=== PATIENT | male | born 1955 | race Caucasian/White ===

== ENCOUNTER → 2017-03-16 17:32 | Outpatient (CLI) | payer OTHER, SELFPAY ==
--- NOTE | 2017-03-16 17:38 | RAD_ITS ---
STUDY: X-RAY - LEFT KNEE REASON FOR EXAM: Male, 61 years old. Bilateral knee pain. No history of trauma. TECHNIQUE: 4 view(s) of the knee with weightbearing. COMPARISON: Comparison April 06, 2013. FINDINGS: Alignment is normal. No fracture or dislocation. Mild medial joint space narrowing with small tricompartment osteophytes. Mild lateral subluxation of patella. The soft tissue structures are unremarkable. RAD/Knee 4 or More Views IMPRESSION: Mild tricompartment osteophytosis with mild medial joint space narrowing. Abnormal tracking of the patella. No significant change since March 2013. Electronically Signed: Parth Chamberlain MD at 8:03 EST , Service support ,
--- NOTE | 2017-03-16 17:38 | RAD_ITS ---
STUDY: X-RAY - RIGHT KNEE REASON FOR EXAM: Male, 61 years old. Bilateral knee pain. No history of trauma. TECHNIQUE: 4 view(s) of the knee with weightbearing. COMPARISON: None. FINDINGS: Alignment is normal. No fracture or dislocation. Moderate to severe lateral joint space narrowing with marginal osteophytes. The soft tissue structures are unremarkable. RAD/Knee 4 or More Views IMPRESSION: Moderate to severe degenerative changes of the lateral compartment. Electronically Signed: Parth Chamberlain MD at 8:00 EST , Service support ,
== END ==
PROVIDERS: Family Provider Family Medicine; PCP Family Medicine; Visit Provider Family Medicine
DX: M17.9 Osteoarthritis of knee, unspecified (principal)
CPT/HCPCS: 73564

== ENCOUNTER 2018-05-11 06:33 | Day surgery (SDC) | payer OTHER, SELFPAY ==
[2018-05-11] VITALS (10 sets, daily range): BP systolic 95–142; BP diastolic 65–87; PULSE 59–71; RESP 14–16; TEMP 36.1–36.7; O2SAT 92–100; BMI 32.3
--- NOTE | 2018-05-11 07:30 | PCM.HP.STD ---
Problem List (1) Family history of colon cancer in father Status: Acute History of Present Illness Date of Admission: 05/11/18 The patient is a 63 year old M with a family history of colon cancer in his father who of it at age 55. The patient has had 3 previous colonoscopies. His most recent colonoscopy was 6 years ago. Remotely he thinks he had 2 small pre-polyps he denies bright red blood per rectum or melena. No abdominal pain. No unexpected weight loss. No history of DVT. He otherwise has been enjoying good health. He is not on any anticoagulants. Past Medical History Past Medical History (Chronic Problems): Chronic Problems GERD (gastroesophageal reflux disease) (Chronic) History of cellulitis (Chronic) Allergies No Known Allergies Allergy (Verified 05/10/18 10:20) Home Medications: Ambulatory Orders Medication Instructions Recorded Aspirin [Aspirin, Baby] 81 mg PO DAILY@0800 11/03/13 Omeprazole [Prilosec] 20 mg PO DAILY 11/03/13 Surgical History: - - Hemorrhoidectomy, R arthroscopic knee for torn meniscus. Smoking Status: Former smoker - *Family History Maternal History Items: Diabetes Paternal History Items: Cancer Review of Systems Constitutional: Denies: Anorexia HEENT: Denies: Difficulty Swallowing Cardiovascular: Denies: Chest Pain Respiratory: Denies: Cough Gastrointestinal: Denies: Abdominal Pain, Hematemesis, Melena Endocrine: Denies: Change in Body Habitus VTE Information - Inpt Only VTE Present on Admission: No Patient Problems: Active and Suspected Problems Family history of colon cancer in father (Acute) - Physical Exam General: Alert, Oriented x3, Cooperative, No apparent distress HEENT: Atraumatic Oral: Moist Mucosa Neck: Supple Lungs: Clear to auscultation, Normal air movement Cardiovascular: Regular rate, Regular Rhythm Abdomen: Bowel Sounds Present, Soft, Non Tender Extremities: No Calf Tenderness Skin: No rashes Psych/Mental Status: Normal Affect Vital Signs Temp Pulse Resp BP Pulse Ox 98.1 F 71 16 142/74 H 99 05/11/18 06:57 05/11/18 06:57 05/11/18 06:57 05/11/18 06:57 05/11/18 06:57 Oxygen Delivery Method Room Air Weight: 252 lb 6.868 oz Body Mass Index (BMI) 32.3 Assessment/Plan All Active Problems Family history of colon cancer in father (Acute) Cellulitis of arm, left (Acute) Bursitis of elbow (Acute) I am recommending a colonoscopy with possible biopsy or polypectomy as indicated. He is aware of the technique, benefits, risks, alternatives. He presents via our open access program. We will proceed as noted. Jerry Slaughter M.D., F.A.C.S.
--- NOTE | 2018-05-11 07:52 | OP.ENDO_ITS ---
05/11/2018 Akira Green Re : Colonoscopy procedure for Tom Leal Dear Norma This procedure was performed on Friday, May 11, 2018. My impressions and recommendations are as follows: Impressions : - Diverticulosis in the sigmoid colon and in the descending colon. There was no evidence of diverticular bleeding. - The examination was otherwise normal. - No specimens collected. Recommendations : - Discharge patient to home. - Resume previous diet. - Continue present medications. - Repeat colonoscopy in 5 years for surveillance. My findings are described in the full procedure note, which is enclosed. If I can be of further assistance, please feel free to contact me at Doctor phone number(s): Work: . Sincerely, Jerry Slaughter MD 05/11/2018 7:52:26 AM This report has been signed electronically.
== END 2018-05-11 09:22 | disposition home or self-care (01) ==
LOC: EN 06:34 → AC 06:35
PROVIDERS: Family Provider Family Medicine; PCP Family Medicine; Referring Provider Surgery; Visit Provider Surgery
PROC: 0DJD8ZZ Inspection of Lower Intestinal Tract, Via Natural or Artificial Opening Endoscopic (ICD-10-PCS; CPT 45378; principal; 2018-05-11 07:25)
DX: K57.30 Diverticulosis of large intestine without perforation or abscess without bleeding (principal); K21.9 Gastro-esophageal reflux disease without esophagitis; Z80.0 Family history of malignant neoplasm of digestive organs
CPT/HCPCS: 45378; 99152; 99153; J7120

== ENCOUNTER → 2018-09-21 12:20 | Outpatient (CLI) | payer OTHER, SELFPAY ==
[2018-09-21 08:05] VITALS: BMI 32.3
[2018-09-21 12:21] LABS: Pathologist Comment May follow
[2018-09-21 13:17] LABS: RBC /Synovial Fluid 0.029 10^6/uL (0); Synovial Fld Mononuclear WBC % 79.8 %; Synovial Fld Polynuclear WBC # 0.059 10^3/uL; Synovial Fld Polynuclear WBC % 20.2 %
[2018-09-21 13:25] LABS: AUTO B FLUID DILUENT BKGD CT WBC <0.1 RBC <0.01 (W<.1,R<.01); Appearance /Synovial Fluid Cloudy (CLEAR); Color / Synovial Fluid Red (Pale Yellow); Source / Synovial Fluid LEFT KNEE; Source- Body Fluid SYNOVIAL
[2018-09-21 14:49] LABS: Body Fluid QC Type(s) BF2,BF3
[2018-09-21 15:09] LABS: Lymph 76 %; Monocyte /Synovial Fluid 7 %; Neutrophil 17 % (0-25)
[2018-09-22 14:20] LABS: Pathologist Review Reviewed
== END ==
PROVIDERS: PCP Family Medicine; Visit Provider Orthopaedic Surgery
DX: M25.462 Effusion, left knee (principal)
CPT/HCPCS: 82945; 84157; 87070; 87075; 87205; 89050; 89051; 89060

== ENCOUNTER → 2018-09-27 15:19 | Outpatient (CLI) | payer OTHER, SELFPAY ==
[2018-09-21 08:05] VITALS: BMI 32.3
== END ==
PROVIDERS: PCP Family Medicine; Visit Provider Family Medicine
DX: R39.11 Hesitancy of micturition (principal); R50.9 Fever, unspecified
CPT/HCPCS: 87086; 87088

== ENCOUNTER → 2018-09-30 11:09 | Outpatient (CLI) | payer OTHER, SELFPAY ==
[2018-09-21 08:05] VITALS: BMI 32.3
--- NOTE | 2018-09-30 11:11 | MRI_ITS ---
STUDY: MRI LEFT KNEE REASON FOR EXAM: Left knee pain since June, no specific injury. TECHNIQUE: Standardized fat and water weighted pulse sequences were obtained in all 3 orthogonal planes. COMPARISON: Radiographs 03/16/2017. FINDINGS: Normal medial meniscus. Normal hyaline cartilage of the medial femorotibial compartment. Normal medial femoral condyle and tibial plateau. Normal medial collateral ligamentous complex (MCL). Normal distal semimembranosus, gracilis and semitendinosus tendons. There is diffuse tear/degeneration of the lateral meniscus (proton density sagittal images 29-39; proton density coronal images 10-15). There is peripheral subluxation of the lateral meniscus. There is arthrosis of the lateral femorotibial compartment with chondral thinning (T2 sagittal image 22). There is a subchondral insufficiency fracture of the lateral femoral condyle with mild associated bone edema (T2 coronal images 11, 12). Normal proximal tibiofibular articulation. Normal lateral collateral (fibular) ligament. Normal popliteus tendon. Normal biceps femoris tendon. Normal anterior cruciate ligament (ACL). Normal posterior cruciate ligament (PCL). Normal congruent patellofemoral articulation. There is arthrosis of the patellofemoral compartment partial-thickness chondral loss (T2 sagittal images 16, 17). Normal medial and lateral patellar retinaculum. Normal visualized quadriceps tendon. Normal patellar tendon. Normal Hoffa's fat pad. There is a small joint effusion. There is a thin medial patellar plica. There is edema/fluid in the anterior subcutis adipose space. The otherwise visualized osseous structures are unremarkable. MRI/Lower Ext Joint Only (Routine) IMPRESSION: Tear/degeneration of the lateral meniscus. Subchondral insufficiency fracture of the lateral femoral condyle. Arthrosis of the lateral femorotibial and patellofemoral compartments. Small joint effusion. Electronically Signed: Lawrence Chowdary MD at 13:17 EDT Tel , Service support ,
== END ==
PROVIDERS: Family Provider Family Medicine; PCP Family Medicine; Referring Provider Orthopaedic Surgery; Visit Provider Orthopaedic Surgery
DX: M25.462 Effusion, left knee (principal)
CPT/HCPCS: 73721

== ENCOUNTER → 2019-07-26 10:02 | Outpatient (CLI) | payer OTHER, SELFPAY ==
[2018-12-06 12:51] VITALS: BMI 32.3
--- NOTE | 2019-07-26 10:09 | VDLE_ITS ---
Reason For Study: suspected phlebitis Procedure LEFT Exam performed in department. GSV is normal. The exam was abbreviated due to the COVID 19 CFV is compressible, spontaneous, phasic, protocol. competent, and demonstrates normal The exam was diagnostic. augmentation. A preliminary report was called and/or faxed FV is compressible, spontaneous, phasic, to Dr. Love. competent and demonstrates normal augmentation. POP V is compressible, spontaneous, phasic, competent and demonstrates normal augmentation. T/P Trunk is compressible. PTV is compressible. LT PerV is compressible. Interpretation Summary Deep veins of the left lower extremity are patent and compressible segmentally. There is no evidence of left lower extremity deep vein thrombosis. Valvular competence appears intact within the proximal deep venous system on the left . The left great saphenous vein appears patent and compressible segmentally. An abbreviated Covid-19 protocol was performed. Ordering Physician: Phil Love Performed By: Woody Hartley RVT
== END ==
PROVIDERS: PCP Family Medicine; Referring Provider Family Medicine; Visit Provider Family Medicine
DX: M79.605 Pain in left leg (principal); M79.89 Other specified soft tissue disorders; I80.3 Phlebitis and thrombophlebitis of lower extremities, unspecified
CPT/HCPCS: 93971

== ENCOUNTER → 2019-12-26 16:42 | Outpatient (CLI) | payer OTHER, SELFPAY ==
[2018-12-06 12:51] VITALS: BMI 32.3
[2019-12-26 17:41] LABS: Hemoglobin 14.6 g/dL (13.0-16.5); Mean Corpuscular Hgb 31.3 pg (27.0-32.0); Mean Corpuscular Volume 92.3 fL (80-94); Mean Platelet Vol. 10.8 fl (6.2-12.0); Platelet Count 239 K/mm3 (150-450); RBC Distribution Width CV 12.4 % (11.6-14.6); RBC Distribution Width SD 41.9 fl (35.1-43.9); Red Blood Count 4.66 M/mm3 (4.6-6.2); White Blood Count 6.2 K/mm3 (4.4-11.0)
[2019-12-26 18:22] LABS: Anion Gap 9 (5-15); BUN 21 mg/dL (7-18); BUN/Creat Ratio 21.9 RATIO (10-20); Calcium,Total 8.6 mg/dL (8.5-10.1); Chloride 106 mmol/L (98-107); Creatinine, Serum 0.96 mg/dL (0.70-1.30); EST Glomerular Filtration Rate 84 mL/min (>60); Est Glom Filt Rate - Afr Amer 101 mL/min (>60); Glucose 125 mg/dL (74-106); Potassium 3.8 mmol/L (3.5-5.1); Sodium Level 140 mmol/L (136-145)
== END ==
PROVIDERS: PCP Family Medicine; Referring Provider Urology; Visit Provider Urology
DX: Z01.812 Encounter for preprocedural laboratory examination (principal); Z11.59 Encounter for screening for other viral diseases
CPT/HCPCS: 36415; 80048; 85027

== ENCOUNTER → 2019-12-30 10:35 | Outpatient (CLI) | payer OTHER, SELFPAY ==
[2018-12-06 12:51] VITALS: BMI 32.3
--- NOTE | 2019-12-30 10:38 | EKG12_ITS ---
Test Reason : PREOP Blood Pressure : / mmHG Vent. Rate : 077 BPM Atrial Rate : 077 BPM P-R Int : 166 ms QRS Dur : 106 ms QT Int : 376 ms P-R-T Axes : 020 001 079 degrees QTc Int : 425 ms Normal sinus rhythm Normal ECG Confirmed by DWAYNE ALMAZAN, LOVE ([id number]), production editor JESSIE VELASQUEZ ([id number]) on 01/02/2020 1:27:49 PM Referred By: Domingo Farris Confirmed By:LOVE RICE MD
== END ==
PROVIDERS: PCP Family Medicine; Referring Provider Urology; Visit Provider Urology
DX: Z01.812 Encounter for preprocedural laboratory examination (principal); Z11.59 Encounter for screening for other viral diseases
CPT/HCPCS: 87635; 93005; C9803; U0003

== ENCOUNTER → 2020-02-14 13:42 | Outpatient (CLI) | payer OTHER, SELFPAY ==
[2018-12-06 12:51] VITALS: BMI 32.3
[2020-02-14 15:17] LABS: Absolute Lymphocyte Count 1.17 X10^3/uL (0.83-4.51); Absolute Neutrophil Count 2.5 X10^3/uL (2.0-7.7); Basophil# 0.04 X10^3/uL; Basophil% 0.9 % (0-1); Eosinophil# 0.19 X10^3/uL; Eosinophils% 4.5 % (0-5); Hematocrit 42.3 % (40-54); Hemoglobin 14.4 g/dL (13.0-16.5); Lymphocyte # 1.17 X10^3/ul (4.0); Lymphocyte % 27.7 % (19-41); Mean Corpuscular Volume 91.2 fL (80-94); Mean Platelet Vol. 10.8 fl (6.2-12.0); Monocyte# 0.32 X10^3/uL; Monocyte% 7.6 % (0-10); NRBC Flagged by Analyzer 0 % (0-5); Neutrophil % 59.1 % (47-70); Platelet Count 229 K/mm3 (150-450); RBC Distribution Width CV 12.3 % (11.6-14.6); RBC Distribution Width SD 40.6 fl (35.1-43.9); Red Blood Count 4.64 M/mm3 (4.6-6.2); White Blood Count 4.2 K/mm3 (4.4-11.0)
[2020-02-14 15:53] LABS: Anion Gap 6 (5-15); BUN 17 mg/dL (7-18); Calcium,Total 8.9 mg/dL (8.5-10.1); Chloride 106 mmol/L (98-107); EST Glomerular Filtration Rate 90 mL/min (>60); Est Glom Filt Rate - Afr Amer 109 mL/min (>60); Glucose 95 mg/dL (74-106); Potassium 3.8 mmol/L (3.5-5.1); Sodium Level 138 mmol/L (136-145); Thyroid Stim Hormone (TSH) 1.88 uIU/mL (0.358-3.74)
== END ==
PROVIDERS: PCP Family Medicine; Visit Provider Family Medicine
DX: I10 Essential (primary) hypertension (principal)
CPT/HCPCS: 36415; 80048; 84443; 85025

== ENCOUNTER 2020-06-12 17:30 | Outpatient (RCR) | payer OTHER, SELFPAY ==
[2018-12-06 12:51] VITALS: BMI 32.3
--- NOTE | 2020-06-08 15:04 | HP.PTEVAL_ITS ---
Patient's Visit Information COLEEN HARRISON is a 65 year old M referred to Physical Therapy by Dr. Akira Green MD with a diagnosis of BPPV. Date of Evaluation: 06/08/20 Physical Therapist: Lux Saucedo DPT, OCS, CSCS - Visit Plan Frequency: 1x/Week Duration: 4-6 Weeks Plan: weekly as needed for 2-4 weeks for positional monitorring and treatments. Next session check L hallpike and driving, movemnets as patient is going out of town after that. - Subjective Dizzyness for about three weeks. Lying downa nd turning hed to the right. Spinning for a couple seconds. Feels pretty normal in between episode. Got meclizine which he takes but it makes him woozy. No falls, Balance feels OK. Semi retired, works in [employer]. activities at home are mostly OK but avoids yard work as bending down can be an issue. Worried about driving as he had it happen on hills in the car one time. - Objective Walks normal adn I, trasnfers with UE I, steps I with one rail showing weakness B at knees. cervical aROM is well wFL adn without pain today. - R halpike jonnie. + L hallpike jonnie for up torsional nystagmus of 10 seconds. Treated with L luan then - HD test. - Balance Scores Functional Gait Assessment Score: 25 % Disability: 16.6700 - Goals Goal 1:: Abolish dizzyness with bending or lying in bed. Goal Time Frame: 2-4 Weeks Goal 2:: Pt feel 100% back to normal Goal Time Frame: 2-4 Weeks Goal 3:: 0 DHI score Goal Time Frame: 2-4 Weeks - Rehabilitation Potential Physical Therapy Diagnosis: BPPV Rehabilitation Potential: Fair - Anticipated Interventions Patient/Client Instruction: Educate patient on: Condition, Plan of Care For the Purpose of:: To increase tolerance to activity/condition/position Comment: positional and vestibular For the Purpose of:: To increase tolerance to activity/condition/position Thank you for the opportunity to evaluate your patient. For Medicare and Medicare HMO plans, please review the plan of care and approve it. It will need to be FAXED BACK to us at [phone] for Medicare purposes. For Medicare only, by signing this I certify the plan of care. Please let me know if there are questions or concerns regarding this plan of care. Physician Signature: Date:
--- NOTE | 2020-08-28 11:49 | HP.PT.NRP ---
COLEEN HARRISON was seen in my office for initial evaluation on 06/08/20. The following Plan of Care was established for this patient: Initial Frequency: 1x/Week Initial Duration: 4-6 Weeks Patient/Client Instruction: Educate patient on: Condition, Plan of Care For the Purpose of:: To increase tolerance to activity/condition/position For the Purpose of:: To increase tolerance to activity/condition/position This patient was last seen in our office 06/12/20. Pertinent comments regarding their Physical therapy will appear below: Pt een two visits for positional treatments adn was 80% better. They no showed for the next f/u and neglected to reschedule. at this point, it has been over two months adn I will discontinue due to nonattendance. At this point I will be discontinuing this patient from physical therapy. I would be happy to see this patient again in the future if found appropriate by the physician. Thank you! Lux Saucedo, DPT, OCS, CSCS
== END 2020-06-12 19:00 | disposition home or self-care (01) ==
LOC: PT 17:30
PROVIDERS: PCP Family Medicine; Referring Provider Family Medicine; Visit Provider Family Medicine
DX: H81.10 Benign paroxysmal vertigo, unspecified ear (principal)
CPT/HCPCS: 97161; 97530

== ENCOUNTER → 2020-07-19 15:07 | Outpatient (CLI) | payer OTHER, SELFPAY ==
[2018-12-06 12:51] VITALS: BMI 32.3
== END ==
PROVIDERS: PCP Family Medicine; Visit Provider Urology
DX: Z12.5 Encounter for screening for malignant neoplasm of prostate (principal)
CPT/HCPCS: 36415; 84153; G0103

== ENCOUNTER 2021-03-14 16:48 | Outpatient (CLI) | payer BC, SELFPAY | END 2021-03-14 23:59 | disposition short-term general hospital (02) | LOC: LABSPEC 16:49 | PROVIDERS: PCP Family Medicine; Visit Provider Family Medicine | DX: U07.1 COVID-19 (principal) | CPT/HCPCS: 87635; U0003; U0005 ==

== ENCOUNTER 2021-05-09 15:30 | Outpatient (CLI) | payer BC, SELFPAY | END 2021-05-09 23:59 | disposition home or self-care (01) | LOC: LAB 15:32 | PROVIDERS: PCP Family Medicine; Referring Provider Urology; Visit Provider Urology | DX: Z12.5 Encounter for screening for malignant neoplasm of prostate (principal) ==

== ENCOUNTER → 2021-12-09 | Outpatient (CLI) | payer MEDICARE, OTHER, SELFPAY ==
[2021-12-09 14:40] LABS: AST(SGOT) 15 U/L (15-37); Alanine Aminotransfer ALT/SGPT 28 U/L (16-61); Albumin, Serum 3.5 g/dL (3.2-5.0); Alkaline Phosphatase 56 U/L (45-117); Anion Gap 7 (5-15); BUN 19 mg/dL (7-18); BUN/Creat Ratio 20.2 RATIO (10-20); Calcium,Total 8.8 mg/dL (8.5-10.1); Chloride 102 mmol/L (98-107); Cholesterol 202 mg/dL (200); Creatinine, Serum 0.94 mg/dL (0.70-1.30); EST Glomerular Filtration Rate 85 mL/min (>60); Est Glom Filt Rate - Afr Amer 103 mL/min (>60); Globulin 3.6 g/dL (2.2-4.2); Glucose 113 mg/dL (74-106); High Density Lipoprotein 57 mg/dL; PSA,Total - Annual Screen 4.12 ng/mL (0.00-4.00); Potassium 3.6 mmol/L (3.5-5.1); Protein, Total 7.1 g/dL (6.4-8.2); Sodium Level 139 mmol/L (136-145); Triglycerides 84 mg/dL; Very Low Density Lipoprotein 17 mg/dL (5-40)
== END | disposition home or self-care (01) ==
PROVIDERS: PCP Family Medicine; Referring Provider Family Medicine; Visit Provider Family Medicine
DX: Z00.00 Encounter for general adult medical examination without abnormal findings (principal); I10 Essential (primary) hypertension; Z12.5 Encounter for screening for malignant neoplasm of prostate
CPT/HCPCS: 36415; 80053; 80061; 84153; G0103

== ENCOUNTER 2022-02-28 20:49 | Emergency (ER) | payer MEDICARE, OTHER, SELFPAY ==
[2022-02-28 20:50] VITALS: BP 141/126; PULSE 63; RESP 15; TEMP 36.6; O2SAT 93; BMI 32.1
--- NOTE | 2022-02-28 21:10 | EDS_ITS ---
HPI History of Present Illness Chief Complaint: Wound Narrative Narrative: 66-year-old male had robotic little right TKA performed by Dr. Charles Rapp on Thursday, 4 days ago. He went to rehab today. His who is his supervisor [employer] during his rehabilitation of this right knee noticed that on the incision that was closed and amie on the anterior tibial surface, was saturated with a thin blood. This is not the original bandage. states that she changed it this afternoon after physical therapy, and has become saturated. They called the on- call physician. They present to the emergency department because of the reported continued bleeding. Patient denies any fevers or chills, no purulent drainage. No real pain in the knee. He does not take blood thinners except for aspirin. PFSH PFSH Home Medications omeprazole 20 mg capsule,delayed release 20 mg PO DAILY 11/03/13 [History Last Taken 05/11/18 04:30 20 MG] alfuzosin 10 mg tablet,extended release 24 hr 10 mg PO DAILY 09/05/20 [History Last Taken Unknown] losartan 100 mg tablet 100 mg PO DAILY 09/05/20 [History Last Taken Unknown] Allergy/AdvReac Type Severity Reaction Status Date / Time No Known Allergies Allergy Verified 02/28/22 20:55 Family History Father Colon cancer Surgical History [place] teeth extracted Social History household members: spouse and children housing: house current occupational status: retired Smoking Status: Former smoker alcohol intake: current alcohol intake frequency: a few times a week substance use type: does not use what type of physical activity do you participate in: bicycling seatbelt use: always do you feel safe at home: Yes ROS ROS ED ROS Narrative Constitutional: No fever, no chills. HEENT: No sore throat. No neck pain. No loss of vision. No rhinorrhea. Cardiovascular: No chest pain. No palpitations. No pedal edema. Respiratory: No cough, no shortness of breath. Abdominal: No abdominal pain. No nausea. No vomiting. Genitourinary: No dysuria. No hematuria. Musculoskeletal: No myalgias. No arthralgias. Status post right knee total arthroplasty. Neurologic: No headaches. No dizziness. No lightheadedness. Skin: No rash. No change in color except postsurgical changes to right knee. Drainage from incision on right anterior tibia incision. Psychiatric: No depression. No anxiety. EXAM Physical Exam Narrative Exam Narrative: Afebrile. Vital signs noted. HEENT: Normocephalic. Atraumatic. PERRL, EOMI. Neck soft and supple. No point tenderness or step off. Cardiovascular: Regular rate and rhythm. No murmurs, rubs, or gallops appreciated. Respiratory: No tachypnea. Lungs clear to auscultation bilaterally. Gastrointestinal: Abdomen soft, nontender, with normoactive bowel sounds. No rebound or guarding. Neurological: Awake. Alert. Nonfocal, nonlateralizing. Skin: No rash. Normal color. No pallor. Incision on anterior tibial surface sutured closed with amie. Positive serosanguineous drainage. No brisk bleeding. Musculoskeletal: No pedal edema. Full range of motion extremities. Range of motion of right knee mildly limited secondary to postoperative pain. Right lo wer extremity edema consistent with postoperative edema. Const Vital Signs: 02/28/22 20:50 Temperature 97.8 F Temperature Source Temporal Pulse Rate 63 Respiratory Rate 15 Blood Pressure 141/126 H Blood Pressure Mean 131 Pulse Ox 93 Oxygen Delivery Method Room Air MDM MDM MDM Narrative Medical decision making narrative: I do not feel antibiotics are indicated. I do think that this is serosanguineous postoperative drainage and not a postoperative hemorrhage. I discussed the patient with Dr. Smalls with orthopedic surgery. The patient was reportedly seen by Dr. Rapp's PA today, and they had called Dr. Smalls this evening at around 5 PM. He agrees with slight pressure bandage he was encouraged to continue his use of compression stockings. He may need to change the dressing more often. He will follow-up with Dr. Rapp on Thursday. I feel he can be discharged safely home with follow-up. Return instructions to the emergency department were reviewed. Disposition is discharged home in stable condition. Discharge Plan Triage Chief Complaint: Wound ED Provider: Temo Miller Dx/Rx/DC Orders Clinical Impression: Encounter for postoperative wound check, History of total knee arthroplasty Instructions: Knee Replacement Post Op, ED Wound Check (No Infection) Prescriptions: No Action losartan 100 mg tablet 100 mg PO DAILY Label Comments: take 1 tablet by mouth once daily alfuzosin 10 mg tablet extended release 24 hr 10 mg PO DAILY Label Comments: take 1 tablet by mouth once daily AT NIGHT omeprazole 20 MG capsule 20 mg PO DAILY Primary Care Provider: Akira Green Referrals: Akira Green MD [Primary Care Provider] - Charles Rapp MD [Med Staff - Active Staff] - 03/03/22 Disposition Disposition: Home, Self Care
== END 2022-02-28 22:09 | disposition home or self-care (01) ==
LOC: ED 21:28
PROVIDERS: Emergency Provider Emergency Medicine; PCP Family Medicine; Visit Provider Emergency Medicine
DX: Z51.89 Encounter for other specified aftercare (principal); Z96.651 Presence of right artificial knee joint; Z87.891 Personal history of nicotine dependence
CPT/HCPCS: 99283

== ENCOUNTER → 2022-06-19 | Outpatient (CLI) | payer MEDICARE, OTHER, SELFPAY ==
[2022-06-19 16:05] LABS: PSA,Total- Diagnostic 2.91 ng/mL (0.0-4.0)
== END | disposition home or self-care (01) ==
LOC: LAB 14:45
PROVIDERS: PCP Family Medicine; Visit Provider Urology
DX: R97.20 Elevated prostate specific antigen [PSA] (principal)
CPT/HCPCS: 36415; 84153

== ENCOUNTER → 2022-08-20 | Outpatient (CLI) | payer MEDICARE, OTHER, SELFPAY ==
[2022-08-20 12:59] LABS: Absolute Lymphocyte Count 1.53 X10^3/uL (0.83-4.51); Absolute Neutrophil Count 3.4 X10^3/uL (2.0-7.7); Basophil# 0.04 X10^3/uL; Basophil% 0.7 % (0-1); Eosinophil# 0.23 X10^3/uL; Eosinophils% 3.9 % (0-5); Hematocrit 40.3 % (40-54); Hemoglobin 14.3 g/dL (13.0-16.5); Lymphocyte # 1.53 X10^3/ul (0.83-4.51); Lymphocyte % 26.1 % (19-41); Mean Corp Hgb Conc 35.5 g/dL (32-36); Mean Corpuscular Hgb 31.8 pg (27.0-32.0); Mean Corpuscular Volume 89.8 fL (80-94); Mean Platelet Vol. 11.2 fl (6.2-12.0); Monocyte# 0.62 X10^3/uL; Monocyte% 10.6 % (0-10); NRBC Flagged by Analyzer 0 % (0-5); Neutrophil # 3.42 X10^3/uL (2.7-7.7); Neutrophil % 58.4 % (47-70); Platelet Count 238 K/mm3 (150-450); RBC Distribution Width CV 12.7 % (11.6-14.6); RBC Distribution Width SD 41.6 fl (35.1-43.9); Red Blood Count 4.49 M/mm3 (4.6-6.2); White Blood Count 5.9 K/mm3 (4.4-11.0)
[2022-08-20 13:44] LABS: AST(SGOT) 18 U/L (15-37); Alanine Aminotransfer ALT/SGPT 29 U/L (16-61); Albumin, Serum 3.7 g/dL (3.2-5.0); Alkaline Phosphatase 71 U/L (45-117); Anion Gap 7 (5-15); BUN 22 mg/dL (7-18); Calcium,Total 9.5 mg/dL (8.5-10.1); Chloride 104 mmol/L (98-107); Creatinine, Serum 1.05 mg/dL (0.70-1.30); EST Glomerular Filtration Rate 75 mL/min (>60); Est Glom Filt Rate - Afr Amer 90 mL/min (>60); Globulin 3.7 g/dL (2.2-4.2); Glucose 110 mg/dL (74-106); Potassium 3.3 mmol/L (3.5-5.1); Protein, Total 7.4 g/dL (6.4-8.2); Sodium Level 139 mmol/L (136-145)
== END | disposition home or self-care (01) ==
LOC: BFHLAB 10:02
PROVIDERS: PCP Family Medicine; Referring Provider Family Medicine; Visit Provider Family Medicine
DX: R10.11 Right upper quadrant pain (principal)
CPT/HCPCS: 36415; 80053; 85025

== ENCOUNTER → 2022-08-27 | Outpatient (CLI) | payer MEDICARE, OTHER, SELFPAY ==
--- NOTE | 2022-08-27 10:40 | US_ITS ---
STUDY: ABDOMINAL ULTRASOUND - RIGHT UPPER QUADRANT REASON FOR VISIT: Male, 67 years old RUQ PAIN TECHNIQUE: Ultrasound evaluation of the right upper quadrant was performed with real-time and static benz-scale imaging. TECHNICAL QUALITY: Adequate. COMPARISON: None. FINDINGS: Liver: The liver is enlarged and measures 20.4 cm. There is increased echogenicity consistent with fatty infiltration. The bile ducts are within normal limits. There is hepatic color flow. The direction of portal flow is hepatopetal. There is no demonstrated mass lesion. Gallbladder: Normal distended gallbladder. The gallbladder wall measures 2 mm. There is a negative sonographic Forrester''s sign. There is no pericholecystic fluid. There are no gallstones. Common Bile Duct (C.B.D.): The common bile duct measures 3 mm. Pancreas: Normal size of the head, body and tail of the pancreas. There is normal echogenicity of the pancreas. There is no demonstrated pancreatic mass or cyst. Right Kidney: Normal size of the right kidney. The right kidney measures 11.6 cm x 6.4 cm x 5.2 cm. Normal renal cortex. The right cortex measures 1.8 cm. There is no demonstrated renal mass or cyst. There is no right hydronephrosis. Findings suggestive of a small pericardial effusion. Irregular contraction of the left ventricle. US/Abdomen Limited IMPRESSION: Hepatomegaly and diffuse fatty inflation of the liver. Small pericardial effusion and irregular contraction of the left ventricle. Electronically Signed: Eric Maddox MD at 12:12 EDT ,
== END | disposition home or self-care (01) ==
LOC: US 10:38
PROVIDERS: PCP Family Medicine; Referring Provider Family Medicine; Visit Provider Family Medicine
DX: R10.11 Right upper quadrant pain (principal)
CPT/HCPCS: 76705

== ENCOUNTER → 2022-09-02 | Outpatient (CLI) | payer MEDICARE, OTHER, SELFPAY | END | disposition home or self-care (01) | LOC: PSN 09:04 | PROVIDERS: PCP Family Medicine; Referring Provider Family Medicine; Visit Provider Family Medicine | DX: I49.9 Cardiac arrhythmia, unspecified (principal) | CPT/HCPCS: 93225; 93226 ==

== ENCOUNTER → 2023-01-20 | Outpatient (CLI) | payer MEDICARE, SELFPAY ==
[2023-01-20 17:40] LABS: Absolute Lymphocyte Count 1.58 X10^3/uL (0.83-4.51); Absolute Neutrophil Count 3.5 X10^3/uL (2.0-7.7); Basophil# 0.05 X10^3/uL; Basophil% 0.9 % (0-1); Eosinophil# 0.14 X10^3/uL; Eosinophils% 2.4 % (0-5); Hematocrit 40.5 % (40-54); Hemoglobin 14.2 g/dL (13.0-16.5); Lymphocyte # 1.58 X10^3/ul (0.83-4.51); Lymphocyte % 27.2 % (19-41); Mean Corp Hgb Conc 35.1 g/dL (32-36); Mean Corpuscular Hgb 31.6 pg (27.0-32.0); Mean Corpuscular Volume 90.2 fL (80-94); Mean Platelet Vol. 11.2 fl (6.2-12.0); Monocyte# 0.51 X10^3/uL; Monocyte% 8.8 % (0-10); NRBC Flagged by Analyzer 0 % (0-5); Neutrophil # 3.49 X10^3/uL (2.7-7.7); Neutrophil % 60.2 % (47-70); Platelet Count 214 K/mm3 (150-450); RBC Distribution Width CV 12.4 % (11.6-14.6); RBC Distribution Width SD 40.7 fl (35.1-43.9); Red Blood Count 4.49 M/mm3 (4.6-6.2); White Blood Count 5.8 K/mm3 (4.4-11.0)
[2023-01-20 18:02] LABS: Hemoglobin A1c 5.6 % (3.8-5.6)
[2023-01-20 18:12] LABS: ALB/GLOB Ratio 1.1 RATIO (0.9-2.4); AST(SGOT) 13 U/L (15-37); Alanine Aminotransfer ALT/SGPT 26 U/L (16-61); Albumin, Serum 3.7 g/dL (3.2-5.0); Alkaline Phosphatase 59 U/L (45-117); Anion Gap 5 (5-15); BUN 18 mg/dL (7-18); BUN/Creat Ratio 18.1 RATIO (10-20); Calcium,Total 9.2 mg/dL (8.5-10.1); Chloride 103 mmol/L (98-107); Cholesterol 186 mg/dL (200); EST Glomerular Filtration Rate 79 mL/min (>60); Est Glom Filt Rate - Afr Amer 96 mL/min (>60); Globulin 3.5 g/dL (2.2-4.2); Glucose 106 mg/dL (74-106); High Density Lipoprotein 52 mg/dL; Potassium 3.7 mmol/L (3.5-5.1); Protein, Total 7.2 g/dL (6.4-8.2); Sodium Level 137 mmol/L (136-145); Triglycerides 118 mg/dL; Very Low Density Lipoprotein 24 mg/dL (5-40)
== END | disposition home or self-care (01) ==
LOC: BFHLAB 15:11
PROVIDERS: PCP Family Medicine; Visit Provider Family Medicine
DX: I10 Essential (primary) hypertension (principal); R73.01 Impaired fasting glucose
CPT/HCPCS: 36415; 80053; 80061; 83036; 85025

== ENCOUNTER → 2023-07-02 | Outpatient (CLI) | payer BC, MEDICARE, SELFPAY ==
[2023-07-02 17:06] LABS: PSA,Total- Diagnostic 3.31 ng/mL (0.0-4.0)
== END | disposition home or self-care (01) ==
LOC: LAB 14:58
PROVIDERS: PCP Family Medicine; Referring Provider Urology; Visit Provider Urology
DX: R97.20 Elevated prostate specific antigen [PSA] (principal)
CPT/HCPCS: 36415; 84153

== ENCOUNTER → 2023-07-09 | Outpatient (CLI) | payer BC, SELFPAY ==
--- NOTE | 2023-07-09 12:34 | RAD_ITS ---
STUDY: X-RAY CHEST REASON FOR EXAM: Male, 68 years old. Cough. TECHNIQUE: Frontal and lateral views of the chest on 4 images. COMPARISON: None. FINDINGS: Hyperinflation with hyperlucency. There is no demonstrated pleural abnormality. Normal size heart. Normal mediastinum and naga. Normal visualized pulmonary arteries. Aortic tortuosity with calcification. [id number] thoracic spondylosis. Normal visualized ribs, clavicles, and shoulders. No abnormality of the visualized soft tissue structures of the upper abdomen. RAD/Chest PA and Lateral IMPRESSION: No active or acute cardiopulmonary disease. Electronically Signed: Kenneth Bustamante MD at 13:32 EDT ,
== END | disposition home or self-care (01) ==
LOC: MTRAD 12:33
PROVIDERS: PCP Family Medicine; Referring Provider Family Medicine; Visit Provider Family Medicine
DX: R05.9 Cough, unspecified (principal)
CPT/HCPCS: 71046

== ENCOUNTER → 2023-09-04 | Outpatient (CLI) | payer BC, SELFPAY ==
--- NOTE | 2023-09-04 09:33 | RAD_ITS ---
STUDY: X-RAY - LUMBAR SPINE REASON FOR EXAM: Male, 68 years old. LOW BACK PAIN TECHNIQUE: 4 view(s) of the lumbar spine were obtained. COMPARISON: None FINDINGS: Normal lumbar lordosis. Mild levoscoliosis centered at L3. There is a normal alignment of the vertebrae. There is multilevel endplate spondylosis of the lumbar vertebrae. There is multi-level degenerative disc disease with multi-level disc space narrowing. There is multilevel facet hypertrophy. The soft tissue structures are unremarkable. RAD/L/S Spine Min 4 Views IMPRESSION: Mild levoscoliosis with degenerative disc disease. MRI may be useful. Electronically Signed: Kee Eric MD at 10:05 EDT ,
== END | disposition home or self-care (01) ==
LOC: MTRAD 09:32
PROVIDERS: PCP Family Medicine; Referring Provider Family Medicine; Visit Provider Family Medicine
DX: M54.50 Low back pain, unspecified (principal)
CPT/HCPCS: 72110

== ENCOUNTER → 2024-01-29 | Outpatient (CLI) | payer MEDICARE, OTHER, SELFPAY ==
[2024-01-29 17:54] LABS: Absolute Lymphocyte Count 1.45 X10^3/uL (0.83-4.51); Absolute Neutrophil Count 4.2 X10^3/uL (2.0-7.7); Basophil# 0.05 X10^3/uL; Basophil% 0.8 % (0-1); Eosinophil# 0.14 X10^3/uL; Eosinophils% 2.3 % (0-5); Hematocrit 37.4 % (40-54); Hemoglobin 13.2 g/dL (13.0-16.5); Lymphocyte # 1.45 X10^3/ul (0.83-4.51); Lymphocyte % 23.5 % (19-41); Mean Corp Hgb Conc 35.3 g/dL (32-36); Mean Corpuscular Hgb 31.3 pg (27.0-32.0); Mean Corpuscular Volume 88.6 fL (80-94); Mean Platelet Vol. 10.5 fl (6.2-12.0); Monocyte# 0.37 X10^3/uL; NRBC Flagged by Analyzer 0 % (0-5); Neutrophil # 4.15 X10^3/uL (2.7-7.7); Neutrophil % 67.1 % (47-70); Platelet Count 205 K/mm3 (150-450); RBC Distribution Width CV 12.5 % (11.6-14.6); RBC Distribution Width SD 40.3 fl (35.1-43.9); Red Blood Count 4.22 M/mm3 (4.6-6.2); White Blood Count 6.2 K/mm3 (4.4-11.0)
[2024-01-29 18:15] LABS: ALB/GLOB Ratio 1.2 RATIO (0.9-2.4); AST(SGOT) 20 U/L (15-37); Alanine Aminotransfer ALT/SGPT 27 U/L (16-61); Albumin, Serum 3.7 g/dL (3.2-5.0); Alkaline Phosphatase 54 U/L (45-117); Anion Gap 6 (5-15); BUN 21 mg/dL (7-18); BUN/Creat Ratio 22.8 RATIO (10-20); Calcium,Total 8.9 mg/dL (8.5-10.1); Chloride 104 mmol/L (98-107); Cholesterol 177 mg/dL (200); Creatinine, Serum 0.92 mg/dL (0.70-1.30); EST Glomerular Filtration Rate 86 mL/min (>60); Est Glom Filt Rate - Afr Amer 104 mL/min (>60); Glucose 110 mg/dL (74-106); High Density Lipoprotein 52 mg/dL; Potassium 3.6 mmol/L (3.5-5.1); Protein, Total 6.7 g/dL (6.4-8.2); Sodium Level 137 mmol/L (136-145); Triglycerides 104 mg/dL; Very Low Density Lipoprotein 21 mg/dL (5-40)
[2024-01-29 18:48] LABS: Hemoglobin A1c 5.7 % (3.8-5.6)
[2024-01-29 18:51] LABS: International Normalized Ratio 1.1; Prothrombin Time (Protime)PT. 14.3 SECONDS (11.7-14.9)
== END | disposition home or self-care (01) ==
LOC: MTLAB 15:23
PROVIDERS: PCP Family Medicine; Referring Provider Family Medicine; Visit Provider Family Medicine
DX: I10 Essential (primary) hypertension (principal); E78.5 Hyperlipidemia, unspecified; R73.01 Impaired fasting glucose; R16.0 Hepatomegaly, not elsewhere classified
CPT/HCPCS: 36415; 80053; 80061; 83036; 85025; 85610

== ENCOUNTER → 2024-12-12 | Outpatient (CLI) | payer MEDICARE, OTHER, SELFPAY ==
--- NOTE | 2024-12-12 12:59 | US_ITS ---
PROCEDURE: US/Kidney and Bladder
== END | disposition home or self-care (01) ==
LOC: US 12:57
PROVIDERS: PCP Family Medicine; Referring Provider Family Medicine; Visit Provider Family Medicine
DX: M54.9 Dorsalgia, unspecified (principal)
CPT/HCPCS: 76770

== ENCOUNTER → 2025-01-31 | Outpatient (CLI) | payer MEDICARE, OTHER, SELFPAY ==
[2025-01-31 17:44] LABS: Hematocrit 40.6 % (40-54); Hemoglobin 14.0 g/dL (13.0-16.5); Immature Granulocytes Count 0.020 X10^3/uL (0.0-0.0); Mean Corp Hgb Conc 34.5 g/dL (32-36); Mean Corpuscular Volume 90.4 fL (80-94); Mean Platelet Vol. 10.6 fl (6.2-12.0); NRBC Flagged by Analyzer 0 % (0-5); Platelet Count 219 K/mm3 (150-450); RBC Distribution Width CV 12.3 % (11.6-14.6); RBC Distribution Width SD 40.7 fl (35.1-43.9); Red Blood Count 4.49 M/mm3 (4.6-6.2); White Blood Count 5.1 K/mm3 (4.4-11.0)
[2025-01-31 18:19] LABS: AST(SGOT) 22 U/L (<=37); Alanine Aminotransfer ALT/SGPT 23 U/L (<=46); Albumin, Serum 4.4 g/dL (3.4-4.8); Alkaline Phosphatase 59 U/L (40-129); Anion Gap 14 (5-15); BUN 16 mg/dL (4-19); BUN/Creat Ratio 17.8 RATIO (10-20); Calcium,Total 9.7 mg/dL (7.6-11.0); Carbon Dioxide 26.5 mmol/L (21.0-32.0); Chloride 99 mmol/L (98-108); Cholesterol 207 mg/dL (<=200); Globulin 2.7 g/dL (2.2-4.2); Glucose 102 mg/dL (70-99); Low Density Lipoprotein Calc. 127 mg/dL; Magnesium 1.6 mg/dL (1.5-2.2); PSA,Total - Annual Screen 4.20 ng/mL (0.02-4.00); Potassium 3.7 mmol/L (3.3-5.1); Triglycerides 185 mg/dL; Very Low Density Lipoprotein 37 mg/dL (5-40); cholesterol:hdl ratio screen 4.34
== END | disposition home or self-care (01) ==
LOC: BFHLAB 14:49
PROVIDERS: PCP Family Medicine; Visit Provider Family Medicine
DX: E78.00 Pure hypercholesterolemia, unspecified (principal); I10 Essential (primary) hypertension; Z12.5 Encounter for screening for malignant neoplasm of prostate; R73.01 Impaired fasting glucose; R25.2 Cramp and spasm
CPT/HCPCS: 36415; 80053; 80061; 83036; 83735; 84153; 85025; G0103

== ENCOUNTER → 2025-02-02 | Outpatient (CLI) | payer MEDICARE, OTHER, SELFPAY ==
--- NOTE | 2025-02-02 12:50 | US_ITS ---
PROCEDURE: THYROID, 02/02/2025 REASON FOR EXAM: THYROID NODULE TECHNIQUE: Grayscale and color Doppler imaging of the thyroid was performed. COMPARISON: None FINDINGS: Right lobe measures 5.1 x 2.4 x 1.5cm. Essentially homogeneous background echotexture. No solid or mostly solid nodules are identified. Left lobe measures 4.7 x 2.0 x 1.0 cm. Essentially homogeneous background echotexture. No solid or mostly solid nodules are identified. Isthmus measures 3 mm in thickness. US/Thyroid IMPRESSION: 1. Assessment is TI-RADS 1. No nodules identified. 2. Essentially homogeneous gland of overall normal-size. Reading Location: [id number]
--- OUTSIDE RECORDS SUMMARY | 2025-02-02 17:50 | XMS RPT_ITS | CCD ---
Author Organization [facility] Inform ion Partnership [facility] Care Team Providers Care Clinical Psychiatrist Name Role Phone Akira Green MD Primary Care Provider AKIRA GREEN MD Primary Care Physician [phone] LUCINDA ALMAZAN, PRATIK Arroyo Attending Unavailable AKIRA GREEN Primary Care Unavailable LUCINDA ALMAZAN, PRATIK Arroyo Attending Unavailable AKIRA GREEN Primary Care Unavailable LUCINDA ALMAZAN, PRATIK Arroyo Attending Unavailable AKIRA GREEN Primary Care Unavailable LUCINDA ALMAZAN, PRATIK Arroyo Admitting Unavailable NICOLETTE ZAPIEN Consulting Unavailable LUCINDA ALMAZAN, PRATIK Arroyo Referring Unavailable Keith Love DO Primary Care Provider ZHEN CALZADA Attending Unavailable KEITH LOVE Primary Care Unavailable Keith Love Primary Care Unavailable Keith Love Referring Unavailable Keith Love Attending Unavailable Keith Love Referring Unavailable Keith Love Attending Unavailable Keith Love Primary Care Unavailable Medications Current Medications Medication Drug Class(es) Dates Sig (Normalized) Sig (Original) acetaminophen 500 mg oral tablet (1 source) Start: 02-26-2022 End: 03-12-2022 take 1 tablet by mouth once daily acetaminophen 500 mg oral tablet Dose : 1,000 mg = 2 tab(s), Oral, TID, PRN as needed for pain, not to exceed 3000 mg/day, # 100 tab(s), 0 Refill(s), 03/12/22 7:06:00 EST, Pharmacy: [facility] #[id number], 190.5, cm, 02/25/22 16:13:00 EST, Height Start Date: 02/26/22 Stop Date: 03/12/22 Status: Ordered 200 actuat albuterol 0.09 mg/actuat metered dose inhaler (6 sources) beta2-Adrenergic Agonist Start: 01-02-2011 take 2 puff(s) by inhalation four times daily as needed for wheezing albuterol 90 mcg/Actuation INHALATION Aero Inhale 2 Puffs as instructed four times daily as needed. FOR WHEEZING AND SHORTNESS OF BREATH. 1 Inhaler 0 01/02/2011 Active Start: 01-12-2010 take 1 puff(s) by in halation once daily as needed for wheezing albuterol 90 mcg/Actuation INHALATION Aero Indications: Bronchitis, acute Inhale one(1) - two(2) puffs four(4) times a day as needed for wheezing and shortness of breath. 1 Inhaler 1 01/12/2010 Active Comment on above: Inhale one(1) - two( 2) puffs four(4) times a day as needed for wheezing and shortness of breath. Inhale 2 Puffs as in structed four times daily as needed. FOR WHEEZING AND SHORTNESS OF BREATH. albuterol MDI (90 mcg/inh) CFC free inhalation aerosol (3 sources) Start: take 2 puff(s) by inhalation four times daily as needed for wheezing albuterol MDI (90 mcg/inh) CFC free inhalation aerosol 2 puff(s), Inhalation, QID, PRN as needed for wheezing, # 6.7 gram(s), 0 Refill(s) Start Date: 02/13/22 Status: Ordered 24 hr alfuzosin hydrochloride 10 mg extended release oral tablet (5 sources) alpha-Adrenergic [place] Start: 021 take 10 mg by mouth once daily Alfuzosin Active 10 MG PO DAILY September 04, 2020 11:00pm aspirin 81 mg delayed release oral tablet (9 sources) Platelet Aggregation Inhibitor, Nonsteroidal Anti-inflammatory Drug Start: 023 End: 023 take 1 tablet by mouth twice daily aspirin 81 mg oral delayed release tablet Dose : 81 mg = 1 tab(s), Oral, BID, Take 81 mg aspirin twice daily with food for 4 weeks postoperatively for DVT prophylaxis., # 60 tab(s), 0 Refill(s), Pharmacy: [facility] #[id number], 190.5, cm, 02/25/22 16:13:00 EST, Height Start Date: 02/26/22 Stop Date: 03/28/22 Status: Ordered Start: 11-03-2013 End: 09-21-2018 take 81 mg by mouth once daily Aspirin Discontinued 81 MG PO DAILY@0800 November 02, 2013 11:00pm September 21, 2018 7:04am Start: 08-24-2009 ASPIRIN 81 MG TAB Take one(1) tablet daily. 30 11 08/24/2009 Active Comment on above: Take one(1) tablet d aily. cephalexin 500 mg oral capsule (1 source) Cephalosporin Antibacterial Start: 025 End: take 1 capsule by mouth four times daily cephALEXin (KEFLEX) 500 mg capsule Indications: Cellulitis of left lower extremity Take 1 capsule by mouth four times daily for 5 days. 20 capsule 09/14/2024 09/19/2024 Active chlorthalidone 25 mg oral tablet (6 sources) Thiazide-like Diuretic Start: 022 take 1 tablet by mouth once daily chlorthalidone 25 mg oral tablet take 1 tablet by mouth once daily Start Date: 02/13/22 Status: Ordered Comment on above: Take 25 mg by mouth once daily. docusate sodium 50 mg / sennosides, intermediate 8.6 mg oral tablet (1 source) Start: 023 End: 023 take 1 tablet by mouth twice daily Senokot S 50 mg-8.6 mg oral tablet Dose = 2 tab(s), Oral, BID, Take until first bowel movement, then as needed, X 3 day(s), # 12 tab(s), 0 Refill(s), Pharmacy: [facility] #[id number], 190.5, cm, 02/25/22 16:13:00 EST, Height Start Date: 02/26/22 Stop Date: 03/01/22 Status: Ordered etodolac 400 mg oral tablet (3 sources) Nonsteroidal Anti-inflammatory Drug Start: 012 take 1 tablet by mouth twice daily as needed for pain etodolac 400 mg ORAL tablet Take 1 tablet by mouth twice daily. As needed for pain 60 tablet 11 03/17/2011 Active Comment on above: Take 1 tablet by alfredo twice daily. As needed for pain Fish Oil-Concord-3 Fatty Acids 300-500 mg cap (3 sources) Start: 010 Fish Oil-Concord-3 Fatty Acids 300-500 mg cap Take by mouth. 02/19/2009 Active Start: 02-19-2009 Fish Oil-Concord -3 Fatty Acids 300-500 mg cap Take by mouth. 0 02/19/2009 Active Comment on above: Take by mouth. losartan potassium 100 mg oral tablet (11 sources) Angiotensin 2 Receptor [place] Start: 09-05-2020 losartan (COZAAR) 100 mg tablet 09/06/2021 Active meloxicam 7.5 mg oral tablet (1 source) Nonsteroidal Anti-inflammatory Drug Start: 02-26-2022 Mobic 7.5 mg oral tablet Dose : 7.5 mg = 1 tab(s), Oral, BIDM, Do not take any other nonsteroidal anti-inflammatories while on meloxicam/Mobic, # 60 tab(s), 0 Refill(s), [facility][id number], 190.5, cm, 02/25/22 16:13:00 EST, Height Start Date: 02/26/22 Status: Ordered omega-3 fatty acids(FISH OIL 500 MG CAP) (3 sources) Start: 02-19-2009 omega-3 fatty acids(FISH OIL 500 MG CAP) Take four (4) capsules daily. 0 0 02/19/2009 Active Comment on above: Take four (4) capsul es daily. omeprazole 20 mg delayed release oral capsule (14 sources) Proton Pump Inhibitor Start: 11-03-2013 omeprazole (PRILOSEC) 20 mg capsule Take 20 mg by mouth. 11/03/2013 Active Start: 04-29-2010 take 1 tablet by alfredo th once daily Omeprazole Magnesium (PRILOSEC OTC) 20 mg ORAL tablet Take 1 tablet by mouth once daily. 42 tablet 11 04/29/2010 Active Comment on above: Take 1 tablet by alfredo th once daily. Take 20 mg by mouth. oxyCODONE hydrochloride 5 mg oral tablet (1 source) Opioid Agonist Start: 023 End: 023 take 1-2 tablets by mouth every four hours as needed for pain oxyCODONE 5 mg oral tablet ( IMMEDIATE release ) See Instructions, PRN as needed for pain, 1-2 tab(s) Oral q4h, # 60 tab(s), 0 Refill(s), 03/05/22 7:07:00 EST, Pharmacy: [facility] #[id number], Status post total right knee replacement, 190.5, cm, 02/25/22 16:13:00 EST, Height, 113.6 Start Date: 02/26/22 Stop Date: 03/05/22 Status: Ordered tadalafil 20 mg oral tablet (3 sources) Phosphodiesterase 5 Inhibitor Start: Tadalafil (CIALIS) 20 mg ORAL tablet Indications: Erectile dysfunction Take 1 tablet by mouth as needed. 1-2 hours before sexual intercourse. 8 tablet 5 01/07/2011 Active Comment on above: Take 1 tablet by alfredo as needed. 1-2 hours before sexual intercourse. tamsulosin hydrochloride 0.4 mg oral capsule (6 sources) alpha-Adrenergic [place] Start: take 1 capsule by mouth twice daily tamsulosin 0.4 mg oral capsule take 1 capsule by mouth twice a day Start Date: 02/13/22 Status: Ordered Comment on above: Take 1 capsule by mo [facility] twice daily. Vitamin D3 (3 sources) Start: Vitamin D3 Dose : 25 mcg = 1 tab(s), Oral, Daily, 0 Refill(s) Start Date: 02/13/22 Status: Ordered Problems Active Problems Problem Classification Problem Date Documented Date Episodic/Chronic Abdominal hernia (3 sources) Diaphragmatic hernia; Translations: [Diaphragmatic hernia without obstruction or gangrene] 02-21-2010 Episodic Asthma (1 source) Mild intermittent asthma; Translations: [Mild intermittent asthma, uncomplicated] Chronic Disorders of lipid metabolism (3 sources) Hyperlipidemia; Translations: [Hyperlipidemia, unspecified] 02-21-2010 Chronic Disorders of teeth and jaw (5 sources) Loss of teeth due to extraction; Translations: [Partial loss of teeth, unspecified cause, unspecified class] 09-05-2020 Episodic Esophageal disorders (8 sources) Gastroesophageal reflux disease; Translations: [Gastro-esophageal reflux disease without esophagitis] 02-21-2010 Chronic Essential hypertension (2 sources) Essential hypertension; Translations: [Essential (primary) hypertension] Onset: 02-26-2022 Chronic Hemorrhoids (3 sources) Internal hemorrhoids; Translations: [Other hemorrhoids] 02-21-2010 Episodic Hyperplasia of prostate (3 sources) Benign prostatic hypertrophy without outflow obstruction; Translations: [Benign prostatic hyperplasia without lower urinary tract symptoms] Onset: 12-19-2004 02-21-2010 Chronic Osteoarthritis (14 sources) Osteoarthritis; Translations: [Osteoarthrosis, unspecified whether generalized or localized, lower leg] Onset: 07-05-2008 02-21-2010 Chronic Other aftercare (5 sources) Wound ; Translations: [Encounter for other specified surgical aftercare] 03-08-2022 Episodic Other and unspecified benign neoplasm (3 sources) History of polyp of colon; Translations: [Personal history of colonic polyps] 02-21-2010 Episodic Other connective tissue disease (1 source) Artificial knee joint present; Translations: [Presence of unspecified artificial knee joint] Onset: 02-26-2022 Chronic Other connective tissue disease (5 sources) History of total knee arthroplasty; Translations: [Presence of unspecified artificial knee joint] 03-08-2022 Chronic Other connective tissue disease (5 sources) Olecranon bursitis; Translations: [Olecranon bursitis, unspecified elbow] 05-11-2018 Episodic Other diseases of veins and lymphatics (3 sources) Lymphedema; Translations: [Lymphedema, not elsewhere classified] Onset: 02-21-2010 02-11-2021 Chronic Other skin disorders (5 sources) History of cellulitis; Translations: [Personal history of diseases of the skin and subcutaneous tissue] 05-11-2018 Episodic Other upper respiratory disease (3 sources) Allergic rhinitis; Translations: [Allergic rhinitis, unspecified] 02-21-2010 Chronic Other upper respiratory infections (1 source) Acute upper respiratory infection; Translations: [Acute upper respiratory infection, unspecified] Episodic Residual codes; unclassified (3 sources) Family history of malignant neoplasm of gastrointestinal tract; Translations: [Family history of malignant neoplasm of digestive organs] 02-21-2010 Episodic Residual codes; unclassified (5 sources) Family history of cancer of colon; Translations: [Family history of malignant neoplasm of digestive organs] 05-11-2018 Episodic Skin and subcutaneous tissue infections (7 sources) Cellulitis of upper limb; Translations: [Cellulitis of left upper limb] Onset: 09-14-2024 05-11-2018 Episodic Spondylosis; intervertebral disc disorders; other back problems (7 sources) Cervical disc disorder with radiculopathy; Translations: [Cervical disc disorder with radiculopathy, unspecified cervical region] Onset: 02-21-2010 02-11-2021 Episodic Superficial injury; contusion (2 sources) Contusion of left lower leg, initial encounter; Translations: [Contusion of unspecified part of lower limb] Onset: 09-14-2024 09-14-2024 Episodic Past or Other Problems Problem Classification Problem Date Documented Da te Episodic/Chronic Diabetes mellitus without complication (1 source) Diabetes mellitus; Translations: [Type 2 diabetes mellitus without complications] Onset: 07-02-2006 Resolved: 02-19-2009 02-19-2009 Chronic Diabetes mellitus without complication (3 sources) Hyperglycemia; Translations: [Impaired fasting glucose] Onset: 02-19-2009 02-21-2010 Episodic Gastritis and duodenitis (1 source) Acute gastritis; Translations: [Acute gastritis without bleeding] Resolved: 08-24-2009 08-24-2009 Episodic Results Test Name Value Interpretation Reference Range Facility [facility]adder[facility] 025 Kidney and Bladder [facility] [address] [place] [address] [id number] Kidney and Bladder MR#: [id number] Acct: [id number] Name: DUSTIN LEAL Rep #: [id number] : 1955 M 69 From: Eric gomez MD PCP: Dr. Keith Love DO Status: REG CLI Study: Kidney and Bladder Date of Exam: 12/12/24 Exam# [id number] Ordering Dr: Keith Love DO PROCEDURE: KIDNEY AND BLADDER 12/12/2024 REASON FOR EXAM: R CA PAIN, DORSALGIA TECHNIQUE: Procedure Code: USKI Modality: US Procedure: KIDNEY AND BLADDER COMPARISON: None FINDINGS: Kidneys: Normal renal sizes, parenchymal thicknesses, and echotextures. [place]: No evidence of hydronephrosis. Cysts or Masses: No cysts or large solid renal masses. Other: There is a 5.1 cm x 2.7 cm 2.5 cm cystic area with septations along the inferior lateral aspect of the right urinary bladder suggestive of possible urinary bladder diverticulum. There is evidence of bladder wall thickening. RIGHT Kidney Size: 11.6 cm x 6.7 cm x 5.4 cm Delete Cortical Thickness (if discernible): 20 mm (>6mm is normal) LEFT Kidney Size: 12.7 cm x 6 cm x 6.5 cm Cortical Thickness (if discernible): 19 mm (>6mm is normal) US/Kidney and Bladder IMPRESSION: Findings suggestive of a diverticulum arising from the inferior right side of the urinary bladder. The kidneys are unremarkable. Reading Location: [id number] CC: Dr. Keith Love DO Rail Car Driver: Signed Normal [facility] CNOVon 09-14-2024 [facility] Office Visit ([facility]) TOM LEAL Poli ([id number]) 1955 M Date Time Provider Department 09/14/24 3:45 PM ZHEN CALZADA During your visit today, we recorded the following information about you: Temperature Pulse Respiration Blood pressure 96.9 degrees 76/minute 16/minute 102/64 Weight 114.8 kg Zhen Calzada MD 09/14/2024 4:11 PM Signed [facility] Subjective Tom Leal is a 69 year old male. Patient presents with: LESION, SKIN: on left lower leg x several days, fell and caught leg on metal lip of step Patient presents with concern for cellulitis in the left lower leg. He hit the bob on a metal stair 1 week ago. The last couple days it has had increased redness and swelling. It is a little tender to palpation. He has history of cellulitis in the left lower leg and some chronic edema from that. Denies fever, chills, or drainage. He has taken no medicines and applied no treatment to the area. He denies any known issues with drug-resistant staph or exposure to someone with it. Review of Systems Objective BP 102/64 Pulse 76 Temp 36.1 ?C (96.9 ?F) Resp 16 Wt 114.8 kg (253 lb 1.4 oz) SpO2 96% Physical Exam Constitutional: General: He is not in acute distress. Appearance: He is not ill-appearing. Eyes: Extraocular Movements: Extraocular movements intact. Conjunctiva/sclera: Conjunctivae normal. Pupils: Pupils are equal, round, and reactive to light. Cardiovascular: Rate and Rhythm: Normal rate and regular rhythm. Pulmonary: Effort: Pulmonary effort is normal. Breath sounds: Normal breath sounds. Musculoskeletal: Cervical back: Neck supple. Comments: 1 x 3 cm ecchymotic lesion left lower third of the bob with 3 cm halo of reddish hyperpigmentation. No warmth or fluctuance. Chronic edema of the medial ankle. Neurological: Mental Status: He is alert. {ASSESSMENT/PLAN: 1. Contusion of left lower extremity, initial encounter - ICD9: 924.5, ICD10: S80.12XA (primary diagnosis) 2. Cellulitis of left lower extremity - ICD9: 682.6, ICD10: L03.116 In increasing erythema and swelling over the last couple days may represent early cellulitis. He has history of cellulitis in the area and would be prone to reinfection. Start Keflex oral antibiotic. Follow up with signs of infection such as increasing redness, pain, swelling, purulent drainage, or fever/malaise. Zhen Calzada MD Differential Diagnoses - Contusion - Cellulitis is more likely for the following reason(s): Increasing erythema and edema Procedures Allergies As of Date: 09/14/2024 (No Known Allergies) Date Reviewed: 09/14/2024 Reviewed by: Ignacia Hoffman MA - Fully Assessed Reason for Visit: LESION, SKIN [936] Cmt: on left lower leg x several days, fell and caught leg on metal lip of step Primary Visit Diagnosis:Contusion of left lower extremity, initial encounter [S80.12XA] Other Visit Diagnosis:Cellulitis of left lower extremity [L03.116] Order(s):cephALEXin (KEFLEX) 500 mg capsuleTake 1 capsule by mouth four times daily for 5 days.Disp: 20 capsuleRfl: 0 Prescriptions as of 09/14/2024 - cephALEXin (KEFLEX) 500 mg capsule Take 1 capsule by mouth four times daily for 5 days. - tamsulosin (FLOMAX) 0.4 mg Take 1 capsule by mouth twice daily. - losartan (COZAAR) 100 mg tablet - omeprazole (PRILOSEC) 20 mg capsule Take 20 mg by mouth. - Fish Oil-Concord-3 Fatty Acids 300-500 mg cap Take by mouth. - chlorthalidone (HYGROTON) 25 mg tablet Take 25 mg by mouth once daily. - etodolac 400 mg ORAL tablet Take 1 tablet by mouth twice daily. As needed for pain - Tadalafil (CIALIS) 20 mg ORAL tablet Take 1 tablet by mouth as needed. 1-2 hours before sexual intercourse. - albuterol 90 mcg/Actuation INHALATION Aero Inhale 2 Puffs as instructed four times daily as needed. FOR WHEEZING AND SHORTNESS OF BREATH. - Omeprazole Magnesium (PRILOSEC OTC) 20 mg ORAL tablet Take 1 tablet by mouth once daily. - albuterol 90 mcg/Actuation INHALATION Aero Inhale one(1) - two(2) puffs four(4) times a day as needed for wheezing and shortness of breath. - ASPIRIN 81 MG TAB Take one(1) tablet daily. - omega-3 fatty acids(FISH OIL 500 MG CAP) Take four (4) capsules daily. Problem List As Of Date 09/14/2024 Noted Resolved Esophageal reflux [K21.9] Allergic rhinitis, cause unspecified [J30.9] Personal history of colonic polyps [Z86.0100] Other and unspecified hyperlipidemia [E78.5] BPH w/o urinary obs/LUTS [N40.0] 12/19/2004 DM w/o Complication Type II [E11.9] 07/02/2006 02/19/2009 Acute Gastritis without Mention of Hemorrhage [* 08/24/2009 Diaphragmatic hernia without mention of obstruc* Internal hemorrhoids without mention of complic* Family history of malignant neoplasm of gastroi* Osteoarth NOS-l/leg [[id number]] 07/05/2008 Elevated fasting glucose [R73.01 (more content not included)... Normal [facility] CBC W/Diff, Automatedon 12- Absolute Lymph 1.45 X10 3/uL Normal 0.83-4.51 [facility] Comment on above: Performed By: #### L 100.0100, L500.4050, L500.4100, L501.9985, L300.3900 #### [facility] [address] [place], [address] Absolute Neut 4.2 X10 3/uL Normal 2.0-7.7 [facility] Comment on above: Performed By: #### L 100.0100, L500.4050, L500.4100, L501.9985, L300.3900 #### [facility] [address] [place], [address] Basophils/100 WBC (Bld) 0.8 % Normal 0-1 [facility] Comment on above: Performed By: #### L 100.0100, L500.4050, L500.4100, L501.9985, L300.3900 #### [facility] [address] [place], [address] Eosinophils/100 WBC (Bld) 2.3 % Normal 0-5 [facility] Comment on above: Performed By: #### L 100.0100, L500.4050, L500.4100, L501.9985, L300.3900 #### [facility] [address] [place], [address] Erythrocyte distribution width (RBC) [Ratio] 12.5 % Normal 11.6-14.6 [facility] Comment on above: Performed By: #### L 100.0100, L500.4050, L500.4100, L501.9985, L300.3900 #### [facility] [address] [place], [address] Hematocrit (Bld) [Volume fraction] 37.4 % Low 40-54 [facility] Comment on above: Performed By: #### L 100.0100, L500.4050, L500.4100, L501.9985, L300.3900 #### [facility] [address] [place], [address] Hemoglobin (Bld) [Mass/Vol] 13.2 g/dL Normal 13.0-16.5 [facility] Comment on above: Performed By: #### L 100.0100, L500.4050, L500.4100, L501.9985, L300.3900 #### [facility] [address] [place], [address] IG% 0.300 Normal 0.0-0.9 [facility] Comment on above: Result Comment: IG% - Immature Granulocytes (promyelocytes, myelocytes and metamyelocytes) > 1% indicates that a LEFT SHIFT is Present. Performed By: #### L 100.0100, L500.4050, L500.4100, L501.9985, L300.3900 #### [facility] [address] [place], [address] Lymphocytes/100 WBC (Bld) 23.5 % Normal 19-41 [facility] Comment on above: Performed By: #### L 100.0100, L500.4050, L500.4100, L501.9985, L300.3900 #### [facility] [address] [place], [address] MCH (RBC) [Entitic mass] 31.3 pg Normal 27.0-32.0 [facility] Comment on above: Performed By: #### L 100.0100, L500.4050, L500.4100, L501.9985, L300.3900 #### [facility] [address] [place], [address] MCHC (RBC) [Mass/Vol] 35.3 g/dL Normal 32-36 [facility] Comment on above: Performed By: #### L 100.0100, L500.4050, L500.4100, L501.9985, L300.3900 #### [facility] [address] [place], [address] MCV (RBC) [Entitic vol] 88.6 fL Normal 80-94 [facility] Comment on above: Performed By: #### L 100.0100, L500.4050, L500.4100, L501.9985, L300.3900 #### [facility] [address] [place], [address] Monocytes/100 WBC (Bld) 6.0 % Normal 0-10 [facility] Comment on above: Performed By: #### L 100.0100, L500.4050, L500.4100, L501.9985, L300.3900 #### [facility] [address] [place], [address] Neutrophils/100 WBC (Bld) 67.1 % Normal 47-70 [facility] Comment on above: Performed By: #### L 100.0100, L500.4050, L500.4100, L501.9985, L300.3900 #### [facility] [address] [place], [address] Nucleated RBC (Bld) [#/Vol] 0 10*3/uL Normal 0-5 [facility] Comment on above: Performed By: #### L 100.0100, L500.4050, L500.4100, L501.9985, L300.3900 #### [facility] [address] [place], [address] Platelet mean volume (Bld) [Entitic vol] 10.5 fL Normal 6.2-12.0 [facility] Comment on above: Performed By: #### L 100.0100, L500.4050, L500.4100, L501.9985, L300.3900 #### [facility] [address] [place], [address] Platelets (Bld) [#/Vol] 205 10*3/uL Normal 150-450 [facility] Comment on above: Performed By: #### L 100.0100, L500.4050, L500.4100, L501.9985, L300.3900 #### [facility] [address] [place], [address] RBC (Bld) [#/Vol] 4.22 10*6/uL Low 4.6-6.2 [facility] Comment on above: Performed By: #### L 100.0100, L500.4050, L500.4100, L501.9985, L300.3900 #### [facility] [address] [place], [address] RDW SD 40.3 fl Normal 35.1-43.9 [facility] Comment on above: Performed By: #### L 100.0100, L500.4050, L500.4100, L501.9985, L300.3900 #### [facility] [address] [place], [address] WBC (Bld) [#/Vol] 6.2 10*3/uL Normal 4.4-11.0 [facility] Comment on above: Performed By: #### L 100.0100, L500.4050, L500.4100, L501.9985, L300.3900 #### [facility] [address] [place], [address] Comprehensive Metabolic [facility] 01-29-2024 Albumin [Mass/Vol] 3.7 g/dL Normal 3.2-5.0 [facility] Comment on above: Performed By: #### L 100.0100, L500.4050, L500.4100, L501.9985, L300.3900 #### [facility] [address] [place], [address] Albumin/Globulin [Mass ratio] 1.2 {ratio} Normal 0.9-2.4 [facility] Comment on above: Performed By: #### L 100.0100, L500.4050, L500.4100, L501.9985, L300.3900 #### [facility] [address] [place], [address] ALK P 54 U/L Normal 45-117 [facility] Comment on above: Performed By: #### L 100.0100, L500.4050, L500.4100, L501.9985, L300.3900 #### [facility] [address] [place], [address] ALT [Catalytic activity/Vol] 27 U/L Normal 16-61 [facility] Comment on above: Performed By: #### L 100.0100, L500.4050, L500.4100, L501.9985, L300.3900 #### [facility] [address] [place], [address] AST [Catalytic activity/Vol] 20 U/L Normal 15-37 [facility] Comment on above: Performed By: #### L 100.0100, L500.4050, L500.4100, L501.9985, L300.3900 #### [facility] [address] [place], [address] Bilirubin [Mass/Vol] 0.70 mg/dL Normal 0.20-1.00 [facility] Comment on above: Result Comment: For patients on eltrombopag therapy, use of Dimension [place] TBIL is not recommended. Performed By: #### L 100.0100, L500.4050, L500.4100, L501.9985, L300.3900 #### [facility] [address] [place], [address] BUN/CRE 22.8 RATIO High 10-20 [facility] Comment on above: Performed By: #### L 100.0100, L500.4050, L500.4100, L501.9985, L300.3900 #### [facility] [address] [place], [address] CA,Total 8.9 mg/dL Normal 8.5-10.1 [facility] Comment on above: Performed By: #### L 100.0100, L500.4050, L500.4100, L501.9985, L300.3900 #### [facility] [address] [place], [address] Chloride [Moles/Vol] 104 mmol/L Normal 98-107 [facility] Comment on above: Performed By: #### L 100.0100, L500.4050, L500.4100, L501.9985, L300.3900 #### [facility] [address] [place], [address] CO2 [Moles/Vol] 27.0 mmol/L Normal 21.0-32.0 [facility] Comment on above: Performed By: #### L 100.0100, L500.4050, L500.4100, L501.9985, L300.3900 #### [facility] [address] [place], [address] Creatinine [Mass/Vol] 0.92 mg/dL Normal 0.70-1.30 [facility] Comment on above: Result Comment: The validity of the calculated GFR GFRAA in patients over 70 years has not been determined. Clinical correlation is essential. Performed By: #### L 100.0100, L500.4050, L500.4100, L501.9985, L300.3900 #### [facility] [address] [place], [address] EST GFR - AA 104 mL/min Normal >60 [facility] Comment on above: Result Comment: Afri can [place] GFR Calc Performed By: #### L 100.0100, L500.4050, L500.4100, L501.9985, L300.3900 #### [facility] [address] [place], [address] GAP 6 Normal 5-15 [facility] Comment on above: Performed By: #### L 100.0100, L500.4050, L500.4100, L501.9985, L300.3900 #### [facility] [address] [place], [address] GFR/1.73 sq M.predicted among non-blacks MDRD (S/P/Bld) [Vol rate/Area] 86 mL/min/{1.73_m2} Normal >60 [facility] Comment on above: Result Comment: Non- GFR Calc Performed By: #### L 100.0100, L500.4050, L500.4100, L501.9985, L300.3900 #### [facility] [address] [place], [address] Globulin (S) [Mass/Vol] 3.0 g/dL Normal 2.2-4.2 [facility] Comment on above: Performed By: #### L 100.0100, L500.4050, L500.4100, L501.9985, L300.3900 #### [facility] [address] [place], [address] Glucose [Mass/Vol] 110 mg/dL High 74-106 [facility] Comment on above: Result Comment: Fast ing Glucose result from 100 to 125 mg/dL suggests IMPAIRED HOMEOSTASIS per A.D.A. criteria. Performed By: #### L 100.0100, L500.4050, L500.4100, L501.9985, L300.3900 #### [facility] [address] [place], [address] Potassium [Moles/Vol] 3.6 mmol/L Normal 3.5-5.1 [facility] Comment on above: Performed By: #### L 100.0100, L500.4050, L500.4100, L501.9985, L300.3900 #### [facility] [address] [place], [address] Sodium [Moles/Vol] 137 mmol/L Normal 136-145 [facility] Comment on above: Performed By: #### L 100.0100, L500.4050, L500.4100, L501.9985, L300.3900 #### [facility] [address] [place], [address] T PROT 6.7 g/dL Normal 6.4-8.2 [facility] Comment on above: Performed By: #### L 100.0100, L500.4050, L500.4100, L501.9985, L300.3900 #### [facility] [address] [place], [address] Urea nitrogen [Mass/Vol] 21 mg/dL High 7-18 [facility] Comment on above: Performed By: #### L 100.0100, L500.4050, L500.4100, L501.9985, L300.3900 #### [facility] [address] [place], [address] Hemoglobin A1con 01-29-2024 HbA1c (Bld) [Mass fraction] 5.7 % High 3.8-5.6 [facility] Comment on above: Result Comment: Norm al < 5.7 % Prediabetic 5.7 - 6.4 % Diabetic >or= 6.5 % Please note range changes. Performed By: #### L 100.0100, L500.4050, L500.4100, L501.9985, L300.3900 #### [facility] [address] [place], [address] Lipid Profileon 01-29-2024 Cholesterol [Mass/Vol] 177 mg/dL Normal 200 [facility] Comment on above: Result Comment: <200 mg/dL Desirable 200-240 mg/dL Borderline >240 mg/dL High Risk Performed By: #### L 100.0100, L500.4050, L500.4100, L501.9985, L300.3900 #### [facility] [address] [place], [address] Cholesterol in HDL [Mass/Vol] 52 mg/dL Normal [facility] Comment on above: Result Comment: The drugs N-Acetylcysteine and Metamizole may falsely depress this assay. Reference Range HDL <40 mg/dL Low HDL Cholesterol HDL >or= 60 mg/dL High HDL Cholesterol Performed By: #### L 100.0100, L500.4050, L500.4100, L501.9985, L300.3900 #### [facility] [address] [place], [address] Cholesterol in LDL [Mass/Vol] 104 mg/dL Normal 0-130 [facility] Comment on above: Performed By: #### L 100.0100, L500.4050, L500.4100, L501.9985, L300.3900 #### [facility] [address] [place], [address] Cholesterol in VLDL [Mass/Vol] 21 mg/dL Normal 5-40 [facility] Comment on above: Performed By: #### L 100.0100, L500.4050, L500.4100, L501.9985, L300.3900 #### [facility] [address] [place], [address] Triglyceride [Mass/Vol] 104 mg/dL Normal [facility] Comment on above: Result Comment: The drugs N-Acetylcysteine and Metamizole may falsely depress this assay. Serum Triglycerides Reference Interval Normal <150 mg/dL Borderline high 150 - 199 mg/dL High 200 - 499 mg/dL Very High > or = 500 mg/dL Performed By: #### L 100.0100, L500.4050, L500.4100, L501.9985, L300.3900 #### [facility] [address] [place], [address] Prothrombin Time w/INRon INR Coag (PPP) [Relative time] 1.1 {INR} Normal [facility] Comment on above: Performed By: #### L 100.0100, L500.4050, L500.4100, L501.9985, L300.3900 #### [facility] [address] [place], [address] PT Coag (PPP) [Time] 14.3 s Normal 11.7-14.9 [facility] Comment on above: Performed By: #### L 100.0100, L500.4050, L500.4100, L501.9985, L300.3900 #### [facility] [address] [place], [address] Absolute lymphocyte countOrd ered By: Keith Love on 01-20-2023 Lymphocytes Auto (Unsp spec) [#/Vol] 1.58 10*3/uL 0.83-4.51 [facility] Basophil percentageOrdered B y: Keith Love on 01-20-2023 Basophils/100 WBC (Bld) 0.9 % 0-1 [facility] Bilirubin [Mass/Vol] 0.70 mg/dL 0.20-1.00 [facility] Comment on above: For patients on eltr ombopag therapy, use of Dimension [place] TBIL is not recommended. Chloride [Moles/Vol] 103 mmol/L 98-107 [facility] Cholesterol [Mass/Vol] 186 mg/dL <200 [facility] Comment on above: <200 mg/dL Desirable 200-240 mg/dL Borderline >240 mg/dL High Risk Eosinophils/100 WBC (Bld) 2.4 % 0-5 [facility] Glucose [Mass/Vol] 106 mg/dL 74-106 [facility] Comment on above: Fasting Glucose resu lt from 100 to 125 mg/dL suggests IMPAIRED HOMEOSTASIS per A.D.A. criteria. Neutrophils (Bld) [#/Vol] 3.5 10*3/uL 2.0-7.7 [facility] Neutrophils/100 WBC (Bld) 60.2 % 47-70 [facility] Potassium [Moles/Vol] 3.7 mmol/L 3.5-5.1 [facility] Protein [Mass/Vol] 7.2 g/dL 6.4-8.2 [facility] Sodium [Moles/Vol] 137 mmol/L 136-145 [facility] Triglyceride [Mass/Vol] 118 mg/dL <199 [facility] Comment on above: The drugs N-Acetylcy steine and Metamizole may falsely depress this assay.Serum Triglycerides Reference Interval Normal <150 mg/dL Borderline high 150 - 199 mg/dL High 200 - 499 mg/dL Very High > or = 500 mg/dL WBC (Bld) [#/Vol] 5.8 10*3/uL 4.4-11.0 [facility] Blood erythrocytes count (nu mber/volume)Ordered By: Keith Loev on 01-20-2023 RBC (Bld) [#/Vol] 4.49 10*6/uL 4.6-6.2 [facility] Blood hemoglobin measurement (mass/volume)Ordered By: Keith Love on 01-20-2023 Hemoglobin (Bld) [Mass/Vol] 14.2 g/dL 13.0-16.5 [facility] Blood lymphocytes/100 leukoc ytesOrdered By: Keith Love on 01-20-2023 Lymphocytes/100 WBC (Bld) 27.2 % 19-41 [facility] Blood monocytes/100 leukocyt esOrdered By: Keith Love on 01-20-2023 Monocytes/100 WBC (Bld) 8.8 % 0-10 [facility] Blood platelet mean volumeOr dered By: Keith Love on 01-20-2023 Platelet mean volume (Bld) [Entitic vol] 11.2 fL 6.2-12.0 [facility] Determination of erythrocyte mean corpuscular volume (MCV)Ordered By: Keith Love on 01-20-2023 MCV (RBC) [Entitic vol] 90.2 fL 80-94 [facility] Hematocrit Auto (Bld) [Volum e fraction]Ordered By: Keith Love on 01-20-2023 Hematocrit (Bld) [Volume fraction] 40.5 % 40-54 [facility] - Chemistry and C hemistry - challengeOrdered By: Keith Love on 01-20-2023 ALP [Catalytic activity/Vol] 59 U/L 45-117 [facility] ALT [Catalytic activity/Vol] 26 U/L 16-61 [facility] CO2 [Moles/Vol] 29.0 mmol/L 21.0-32.0 [facility] Globulin (S) [Mass/Vol] 3.5 g/dL 2.2-4.2 [facility] Urea nitrogen/Creatinine [Mass ratio] 18.1 mg/mg 10-20 [facility] - Hematology and Cell countsOrdered By: Keith Love on 01-20-2023 Erythrocyte distribution width (RBC) [Entitic vol] 40.7 fL 35.1-43.9 [facility] Erythrocyte distribution width (RBC) [Ratio] 12.4 % 11.6-14.6 [facility] Immature granulocytes/100 WBC (Bld) 0.500 % 0.0-0.9 [facility] Comment on above: IG% - Immature Granu locytes (promyelocytes, myelocytes and metamyelocytes) > 1% indicates that a LEFT SHIFT is Present. MCH (RBC) [Entitic mass] 31.6 pg 27.0-32.0 [facility] Nucleated RBC/100 WBC (Bld) [Ratio] 0 % 0-5 [facility] MCHC Auto (RBC) [Mass/Vol]Or dered By: Keith Love on 01-20-2023 MCHC (RBC) [Mass/Vol] 35.1 g/dL 32-36 [facility] No Panel InformationOrdered By: Keith Love on 01-20-2023 Estimated GFR (MDRD) Amer 96 mL/min >60 [facility] Comment on above: GFR Calc Estimated GFR (MDRD) Non-Af Amer 79 mL/min >60 [facility] Comment on above: Non- GFR Calc Platelets bldOrdered By: Fauzia Love on 01-20-2023 Platelets (Bld) [#/Vol] 214 10*3/uL 150-450 [facility] Serum or plasma albumin jt urement (mass/volume)Ordered By: Keith Love on 01-20-2023 Albumin [Mass/Vol] 3.7 g/dL 3.2-5.0 [facility] Serum or plasma albumin/glob ulin mass ratioOrdered By: Keith Love on 01-20-2023 Albumin/Globulin [Mass ratio] 1.1 {ratio} 0.9-2.4 [facility] Serum or plasma calcium jt urement (mass/volume)Ordered By: Keith Love on 01-20-2023 Calcium [Mass/Vol] 9.2 mg/dL 8.5-10.1 [facility] Serum or plasma cholesterol in HDL measurement (mass/volume)Ordered By: Keith Love on 01-20-2023 Cholesterol in HDL [Mass/Vol] 52 mg/dL >40 [facility] Comment on above: The drugs N-Acetylcy steine and Metamizole may falsely depress this assay. Reference Range HDL <40 mg/dL Low HDL Cholesterol HDL >or= 60 mg/dL High HDL Cholesterol Serum or plasma cholesterol in VLDL measurement (mass/volume)Ordered By: Keith Love on 01-20-2023 Cholesterol in VLDL [Mass/Vol] 24 mg/dL 5-40 [facility] Serum or plasma creatinine m easurement (mass/volume)Ordered By: Keith Love on 01-20-2023 Creatinine [Mass/Vol] 1.00 mg/dL 0.70-1.30 [facility] Comment on above: The validity of the calculated GFR & GFRAA in patients over 70 years has not been determined. Clinical correlation is essential. Serum or plasma low density lipoprotein (LDL) cholesterol measurement (mass/volume)Ordered By: Keith Love on 01-20-2023 Cholesterol in LDL [Mass/Vol] 110 mg/dL 0-130 [facility] Serum or plasma urea nitroge n measurement (mass/volume)Ordered By: Keith Love on 01-20-2023 Urea nitrogen [Mass/Vol] 18 mg/dL 7-18 [facility] Thin prep Papanicolaou smear with manual screeningOrdered By: Keith Love on 01-20-2023 Thin prep Papanicolaou smear with manual screening 13 U/L 15-37 [facility] Thin prep Papanicolaou smear with manual screening 5 5-15 [facility] Whole blood hemoglobin A1c/t otal hemoglobin ratio (mass fraction)Ordered By: Keith Love on 01-20-2023 HbA1c (Bld) [Mass fraction] 5.6 % 3.8-5.6 [facility] Comment on above: Normal < 5.7 % Predi abetic 5.7 - 6.4 % Diabetic >or= 6.5 % Please note range changes. Absolute lymphocyte countOrd ered By: Keith Love on 08-20-2022 Lymphocytes Auto (Unsp spec) [#/Vol] 1.53 10*3/uL 0.83-4.51 [facility] Basophil percentageOrdered B y: Keith Love on 08-20-2022 Basophils/100 WBC (Bld) 0.7 % 0-1 [facility] Bilirubin [Mass/Vol] 0.70 mg/dL 0.20-1.00 [facility] Comment on above: For patients on eltr ombopag therapy, use of Dim[employer] [place] TBIL is not recommended. Chloride [Moles/Vol] 104 mmol/L 98-107 [facility] Eosinophils/100 WBC (Bld) 3.9 % 0-5 [facility] Glucose [Mass/Vol] 110 mg/dL 74-106 [facility] Comment on above: Fasting Glucose resu lt from 100 to 125 mg/dL suggests IMPAIRED HOMEOSTASIS per A.D.A. criteria. Neutrophils (Bld) [#/Vol] 3.4 10*3/uL 2.0-7.7 [facility] Neutrophils/100 WBC (Bld) 58.4 % 47-70 [facility] Potassium [Moles/Vol] 3.3 mmol/L 3.5-5.1 [facility] Protein [Mass/Vol] 7.4 g/dL 6.4-8.2 [facility] Sodium [Moles/Vol] 139 mmol/L 136-145 [facility] WBC (Bld) [#/Vol] 5.9 10*3/uL 4.4-11.0 [facility] Blood erythrocytes count (nu mber/volume)Ordered By: Keith Love on 08-20-2022 RBC (Bld) [#/Vol] 4.49 10*6/uL 4.6-6.2 [facility] Blood hemoglobin measurement (mass/volume)Ordered By: Keith Love on 08-20-2022 Hemoglobin (Bld) [Mass/Vol] 14.3 g/dL 13.0-16.5 [facility] Blood lymphocytes/100 leukoc ytesOrdered By: Keith Love on 08-20-2022 Lymphocytes/100 WBC (Bld) 26.1 % 19-41 [facility] Blood monocytes/100 leukocyt esOrdered By: Keith Love on 08-20-2022 Monocytes/100 WBC (Bld) 10.6 % 0-10 [facility] Blood platelet mean volumeOr dered By: Keith Love on 08-20-2022 Platelet mean volume (Bld) [Entitic vol] 11.2 fL 6.2-12.0 [facility] Determination of erythrocyte mean corpuscular volume (MCV)Ordered By: Keith Love on 08-20-2022 MCV (RBC) [Entitic vol] 89.8 fL 80-94 [facility] Hematocrit Auto (Bld) [Volum e fraction]Ordered By: Keith Love on 08-20-2022 Hematocrit (Bld) [Volume fraction] 40.3 % 40-54 [facility] - Chemistry and C hemistry - challengeOrdered By: Keith Love on 08-20-2022 ALP [Catalytic activity/Vol] 71 U/L 45-117 [facility] ALT [Catalytic activity/Vol] 29 U/L 16-61 [facility] CO2 [Moles/Vol] 28.0 mmol/L 21.0-32.0 [facility] Globulin (S) [Mass/Vol] 3.7 g/dL 2.2-4.2 [facility] Urea nitrogen/Creatinine [Mass ratio] 21.0 mg/mg 10-20 [facility] - Hematology and Cell countsOrdered By: Keith Love on 08-20-2022 Erythrocyte distribution width (RBC) [Entitic vol] 41.6 fL 35.1-43.9 [facility] Erythrocyte distribution width (RBC) [Ratio] 12.7 % 11.6-14.6 [facility] Immature granulocytes/100 WBC (Bld) 0.300 % 0.0-0.9 [facility] Comment on above: IG% - Immature Granu locytes (promyelocytes, myelocytes and metamyelocytes) > 1% indicates that a LEFT SHIFT is Present. MCH (RBC) [Entitic mass] 31.8 pg 27.0-32.0 [facility] Nucleated RBC/100 WBC (Bld) [Ratio] 0 % 0-5 [facility] MCHC Auto (RBC) [Mass/Vol]Or dered By: Keith Love on 08-20-2022 MCHC (RBC) [Mass/Vol] 35.5 g/dL 32-36 [facility] No Panel InformationOrdered By: Keith Love on 08-20-2022 Estimated GFR (MDRD) Amer 90 mL/min >60 [facility] Comment on above: GFR Calc Estimated GFR (MDRD) Non-Af Amer 75 mL/min >60 [facility] Comment on above: Non- GFR Calc Platelets bldOrdered By: Fauzia Love on 08-20-2022 Platelets (Bld) [#/Vol] 238 10*3/uL 150-450 [facility] Serum or plasma albumin jt urement (mass/volume)Ordered By: Keith Love on 08-20-2022 Albumin [Mass/Vol] 3.7 g/dL 3.2-5.0 [facility] Serum or plasma albumin/glob ulin mass ratioOrdered By: Keith Love on 08-20-2022 Albumin/Globulin [Mass ratio] 1.0 {ratio} 0.9-2.4 [facility] Serum or plasma calcium jt urement (mass/volume)Ordered By: Keith Love on 08-20-2022 Calcium [Mass/Vol] 9.5 mg/dL 8.5-10.1 [facility] Serum or plasma creatinine m easurement (mass/volume)Ordered By: Keith Love on 08-20-2022 Creatinine [Mass/Vol] 1.05 mg/dL 0.70-1.30 [facility] Comment on above: The validity of the calculated GFR & GFRAA in patients over 70 years has not been determined. Clinical correlation is essential. Serum or plasma urea nitroge n measurement (mass/volume)Ordered By: Keith Love on 08-20-2022 Urea nitrogen [Mass/Vol] 22 mg/dL 7-18 [facility] Thin prep Papanicolaou smear with manual screeningOrdered By: Keith Love on 08-20-2022 Thin prep Papanicolaou smear with manual screening 18 U/L 15-37 [facility] Thin prep Papanicolaou smear with manual screening 7 5-15 [facility] No Panel InformationOrdered By: Domingo Farris on 06-19-2022 Prostate Specific Antigen Total 2.91 ng/mL 0.0-4.0 [facility] Comment on above: This test was perfor med using the TPSA assay method for official[employer]fm chemistry system. Values obtained with differentassay methods cannot be used interchangably.When changing PSA assays in the course of monitoring apatient, additional sequential testing should be carriedout to confirm baseline values. .Auto Diffon 02-26-2022 Basophil, Absolute 0.0 10 3/mcL Normal 0.0-0.2 [facility] ([place] Comment on above: Performed By: #### G FR, BMP, ADIFF, CBC, ANEU #### [address] [address] Basophils/100 WBC (Bld) 0.1 % Normal 0.0-2.5 [facility] ([place] Comment on above: Performed By: #### G FR, BMP, ADIFF, CBC, ANEU #### [address] [address] Eosinophil, Absolute 0.0 10 3/mcL Normal 0.0-0.4 [facility] ([place] Comment on above: Performed By: #### G FR, BMP, ADIFF, CBC, ANEU #### [address] [address] Eosinophils/100 WBC (Bld) 0.0 % Normal 0.0-7.0 [facility] ([place] Comment on above: Performed By: #### G FR, BMP, ADIFF, CBC, ANEU #### [address] [address] Lymphocyte, Absolute 0.8 10 3/mcL Normal 0.8-3.9 [facility] ([place] Comment on above: Performed By: #### G FR, BMP, ADIFF, CBC, ANEU #### [address] [address] Lymphocytes/100 WBC (Bld) 4.9 % Low 10.0-50.0 [facility] ([place] Comment on above: Performed By: #### G FR, BMP, ADIFF, CBC, ANEU #### [address] [address] Monocyte, Absolute 0.9 10 3/mcL Normal 0.2-1.0 [facility] ([place] Comment on above: Performed By: #### G FR, BMP, ADIFF, CBC, ANEU #### [address] [address] Monocytes/100 WBC (Bld) 5.6 % Normal 1.7-13.0 [facility] ([place] Comment on above: Performed By: #### G FR, BMP, ADIFF, CBC, ANEU #### [address] [address] Neutrophils/100 WBC (Bld) 89.4 % High 37.0-80.0 [facility] ([place] Comment on above: Performed By: #### G FR, BMP, ADIFF, CBC, ANEU #### [address] [address] .GFRon 02-26-2022 GFR 67 ml/min/1.73sqm Normal [facility] ([place]) Comment on above: Result Comment: GFR Population mean for , Non- Americans Ages 20-29 = 116 mL/min/1.73 sq.m. Ages 30-39 = 107 mL/min/1.73 sq.m. Ages 40-49 = 99 mL/min/1.73 sq.m. Ages 50-59 = 93 mL/min/1.73 sq.m. Ages 60-69 = 85 mL/min/1.73 sq.m. Ages 70+ = 75 mL/min/1.73 sq.m. Chronic Kidney Disease: Less than 60 mL/min/1.73 square meters End Stage Renal Disease: Less than 15 mL/min/1.73 square meters Performed By: #### G FR, BMP, ADIFF, CBC, ANEU #### [address] [address] GFR Non- 56 ml/min/1.73sqm Normal [facility] ([place]) Comment on above: Result Comment: GFR Population mean for , Non- Americans Ages 20-29 = 116 mL/min/1.73 sq.m. Ages 30-39 = 107 mL/min/1.73 sq.m. Ages 40-49 = 99 mL/min/1.73 sq.m. Ages 50-59 = 93 mL/min/1.73 sq.m. Ages 60-69 = 85 mL/min/1.73 sq.m. Ages 70+ = 75 mL/min/1.73 sq.m. Chronic Kidney Disease: Less than 60 mL/min/1.73 square meters End Stage Renal Disease: Less than 15 mL/min/1.73 square meters Performed By: #### G FR, BMP, ADIFF, CBC, ANEU #### [address] [address] .NEUABSon 02-26-2022 Neutrophil, Absolute 13.7 10 3/mcL High 2.9-6.2 [facility] ([place]) Comment on above: Performed By: #### G FR, BMP, ADIFF, CBC, ANEU #### [address] [address] BMPon 02-26-2022 BUN/Creatinine Ratio 19 ratio Normal 7-27 [facility] ([place] Comment on above: Performed By: #### G FR, BMP, ADIFF, CBC, ANEU #### [address] [address] Calcium [Mass/Vol] 8.4 mg/dL Normal 8.4-10.2 [facility] ([place] Comment on above: Performed By: #### G FR, BMP, ADIFF, CBC, ANEU #### [address] [address] Chloride [Moles/Vol] 101 mmol/L Normal 98-107 [facility] ([place] Comment on above: Performed By: #### G FR, BMP, ADIFF, CBC, ANEU #### [address] [address] CO2 [Moles/Vol] 27 mmol/L Normal 23-31 [facility] ([place]) Comment on above: Performed By: #### G FR, BMP, ADIFF, CBC, ANEU #### [address] [address] Creatinine [Mass/Vol] 1.29 mg/dL Normal 0.70-1.30 [facility] ([place] Comment on above: Performed By: #### G FR, BMP, ADIFF, CBC, ANEU #### [address] [address] Electrolyte Balance 9.0 mEq/L Normal 4.0-15.0 [facility] ([place]) Comment on above: Performed By: #### G FR, BMP, ADIFF, CBC, ANEU #### [place] [address] Glucose [Mass/Vol] 128 mg/dL High 80-115 [facility] ([place]) Comment on above: Performed By: #### G FR, BMP, ADIFF, CBC, ANEU #### [address] [address] Potassium [Moles/Vol] 4.6 mmol/L Normal 3.5-5.1 [facility] ([place] Comment on above: Performed By: #### G FR, BMP, ADIFF, CBC, ANEU #### [place] [id number] Sodium [Moles/Vol] 137 mmol/L Normal 136-145 [facility] ([place]) Comment on above: Performed By: #### G FR, BMP, ADIFF, CBC, ANEU #### [address] [address] Urea nitrogen [Mass/Vol] 25 mg/dL High 7-18 [facility] ([place]) Comment on above: Performed By: #### G FR, BMP, ADIFF, CBC, ANEU #### [address] [address] CBCon 02-26-2022 Erythrocyte distribution width (RBC) [Ratio] 12.9 % Normal 11.5-14.5 [facility] ([place]) Comment on above: Performed By: #### G FR, BMP, ADIFF, CBC, ANEU #### [address] [address] Hematocrit (Bld) [Volume fraction] 33.9 % Low 42.0-52.0 [facility] ([place]) Comment on above: Performed By: #### G FR, BMP, ADIFF, CBC, ANEU #### [place] [id number] Hgb 11.9 G/dL Low 14.0-18.0 [facility] ([place]) Comment on above: Performed By: #### G FR, BMP, ADIFF, CBC, ANEU #### [address] [address] MCH (RBC) [Entitic mass] 31.5 pg High 27.0-31.2 [facility] ([place] Comment on above: Performed By: #### G FR, BMP, ADIFF, CBC, ANEU #### [place] [id number] MCHC 35.0 G/dL Normal 31.8-35.4 [facility] ([place] Comment on above: Performed By: #### G FR, BMP, ADIFF, CBC, ANEU #### [address] [address] MCV (RBC) [Entitic vol] 90.2 fL Normal 80.0-94.0 [facility] ([place] Comment on above: Performed By: #### G FR, BMP, ADIFF, CBC, ANEU #### [place] [phone] Platelet 212 10 3/mcL Normal 130-400 [facility] ([place] Comment on above: Performed By: #### G FR, BMP, ADIFF, CBC, ANEU #### [address] [address] Platelet mean volume (Bld) [Entitic vol] 8.8 fL Normal 7.4-10.4 [facility] ([place] Comment on above: Performed By: #### G FR, BMP, ADIFF, CBC, ANEU #### [address] [address] RBC 3.76 10 6/mcL Low 4.04-6.13 [facility] ([place] Comment on above: Performed By: #### G FR, BMP, ADIFF, CBC, ANEU #### [address] [address] WBC 15.3 10 3/mcL High 4.6-10.8 [facility] ([place] Comment on above: Performed By: #### G FR, BMP, ADIFF, CBC, ANEU #### [address] [address] LABORATORYOrdered By: Luh Corral on 02-26-2022 Basophil, Absolute 0.0 103/mcL Invalid Interpretation Code 0.0 - 0.2 10^3/mcL AO Workflow SS Basophils/100 WBC (Bld) 0.1 % Invalid Interpretation Code 0.0 - 2.5 % AO Workflow SS Eosinophil, Absolute 0.0 103/mcL Invalid Interpretation Code 0.0 - 0.4 10^3/mcL AO Workflow SS Eosinophils/100 WBC (Bld) 0.0 % Invalid Interpretation Code 0.0 - 7.0 % AO Workflow SS Erythrocyte distribution width (RBC) [Ratio] 12.9 % Invalid Interpretation Code 11.5 - 14.5 % AO Workflow SS Hematocrit (Bld) [Volume fraction] 33.9 % Invalid Interpretation Code 42.0 - 52.0 % AO Workflow SS Hemoglobin (Bld) [Mass/Vol] 11.9 G/dL Invalid Interpretation Code 14.0 - 18.0 G/dL AO Workflow SS Lymphocyte, Absolute 0.8 103/mcL Invalid Interpretation Code 0.8 - 3.9 10^3/mcL AO Workflow SS Lymphocytes/100 WBC (Bld) 4.9 % Invalid Interpretation Code 10.0 - 50.0 % AO Workflow SS MCH (RBC) [Entitic mass] 31.5 pg Invalid Interpretation Code 27.0 - 31.2 pg AO Workflow SS MCHC 35.0 G/dL Invalid Interpretation Code 31.8 - 35.4 G/dL AO Workflow SS MCV (RBC) [Entitic vol] 90.2 fL Invalid Interpretation Code 80.0 - 94.0 fL AO Workflow SS Monocyte, Absolute 0.9 103/mcL Invalid Interpretation Code 0.2 - 1.0 10^3/mcL AO Workflow SS Monocytes/100 WBC (Bld) 5.6 % Invalid Interpretation Code 1.7 - 13.0 % AO Workflow SS Neutrophil, Absolute 13.7 103/mcL Invalid Interpretation Code 2.9 - 6.2 10^3/mcL AO Workflow SS Neutrophils/100 WBC (Bld) 89.4 % Invalid Interpretation Code 37.0 - 80.0 % AO Workflow SS Platelet mean volume (Bld) [Entitic vol] 8.8 fL Invalid Interpretation Code 7.4 - 10.4 fL AO Workflow SS Platelets (Bld) [#/Vol] 212 103/mcL Invalid Interpretation Code 130 - 400 10^3/mcL AO Workflow SS RBC (Bld) [#/Vol] 3.76 106/mcL Invalid Interpretation Code 4.04 - 6.13 10^6/mcL AO Workflow SS WBC (Bld) [#/Vol] 15.3 103/mcL Invalid Interpretation Code 4.6 - 10.8 10^3/mcL AO Workflow SS LABORATORYOrdered By: SYSTEM SYSTEM on 02-26-2022 Calcium [Mass/Vol] 8.4 mg/dL Invalid Interpretation Code 8.4 - 10.2 mg/dL AO ADM SS Chloride [Moles/Vol] 101 mmol/L Invalid Interpretation Code 98 - 107 mmol/L AO ADM SS CO2 [Moles/Vol] 27 mmol/L Invalid Interpretation Code 23 - 31 mmol/L AO ADM SS Creatinine [Mass/Vol] 1.29 mg/dL Invalid Interpretation Code 0.70 - 1.30 mg/dL AO ADM SS Electrolyte Balance 9.0 mEq/L Invalid Interpretation Code 4.0 - 15.0 mEq/L AO ADM SS GFR 67 ml/min/1.73sqm Invalid Interpretation Code AO Chemistry S GFR Non- 56 ml/min/1.73sqm Invalid Interpretation Code AO Chemistry S Glucose [Mass/Vol] 128 mg/dL Invalid Interpretation Code 80 - 115 mg/dL AO ADM SS Potassium [Moles/Vol] 4.6 mmol/L Invalid Interpretation Code 3.5 - 5.1 mmol/L AO ADM SS Sodium [Moles/Vol] 137 mmol/L Invalid Interpretation Code 136 - 145 mmol/L AO ADM SS Urea nitrogen [Mass/Vol] 25 mg/dL Invalid Interpretation Code 7 - 18 mg/dL AO ADM SS Urea nitrogen/Creatinine [Mass ratio] 19 ratio Invalid Interpretation Code 7 - 27 ratio AO ADM SS Gel ABOon 02-25-2022 ABO/Rh Interp Positive Invalid Interpretation Code [facility] ([place]) Comment on above: Performed By: #### G FR, BMP, ADIFF, CBC, ANEU #### [place] [id number] [place], [place] [address] Gel ABSon 02-25-2022 Antibody Screen Gel Negative Normal [facility] ([place]) Comment on above: Performed By: #### G FR, BMP, ADIFF, CBC, ANEU #### [place] [id number] [place], [place] [address] LABORATORYOrdered By: Demetrice Chairez on 02-25-2022 ABO/Rh Interp Positive Invalid Interpretation Code AO BB SS Antibody Screen Gel Negative ABSC (02/25/22 10:30 AM) Invalid Interpretation Code AO BB SS XR KNEE 1 OR 2 VIEWS RIGHTon 02-25-2022 XR KNEE 1 OR 2 VIEWS RIGHT ORIGINAL EXAMINATION: TWO XRAY VIEWS OF THE RIGHT KNEE 02/25/2022 2:08 pm COMPARISON: Prior CT of the knee dated 02/13/2022. HISTORY: ORDERING SYSTEM PROVIDED HISTORY: Reason for Exam: Status Post Arthroplasty FINDINGS: Postsurgical changes status post total right knee arthroplasty are noted. There is no acute fracture, dislocation, or hardware failure. Mild joint effusion and air is seen and expected in the postsurgical state. No unexpected radiopaque foreign body. IMPRESSION: Expected postsurgical changes status post right total knee arthroplasty. Interpreted by: Juan Briceño MD Preliminary Report By: Juan Briceño MD Electronically signed By Juan Briceño MD Dictated Date: 02/25/2022 3:01:35 PM Prelim Date: 02/25/2022 3:02:28 PM Sign Date: 02/25/2022 3:02:28 PM Ordering Provider: PRATIK Linton [facility] ([place]) .Auto Diffon 02-13-2022 Basophil, Absolute 0.1 10 3/mcL Normal 0.0-0.2 [facility] ([place]) Comment on above: Performed By: #### B MP, ALB, A1C, ABOG, GFR, ANSG #### [address] [address] Basophils/100 WBC (Bld) 1.1 % Normal 0.0-2.5 [facility] ([place]) Comment on above: Performed By: #### B MP, ALB, A1C, ABOG, GFR, ANSG #### [address] [address] Eosinophil, Absolute 0.2 10 3/mcL Normal 0.0-0.4 [facility] ([place]) Comment on above: Performed By: #### B MP, ALB, A1C, ABOG, GFR, ANSG #### [address] [address] Eosinophils/100 WBC (Bld) 3.2 % Normal 0.0-7.0 [facility] ([place]) Comment on above: Performed By: #### B MP, ALB, A1C, ABOG, GFR, ANSG #### [address] [address] Lymphocyte, Absolute 1.3 10 3/mcL Normal 0.8-3.9 [facility] ([place]) Comment on above: Performed By: #### B MP, ALB, A1C, ABOG, GFR, ANSG #### [address] [address] Lymphocytes/100 WBC (Bld) 27.6 % Normal 10.0-50.0 [facility] ([place]) Comment on above: Performed By: #### B MP, ALB, A1C, ABOG, GFR, ANSG #### [address] [address] Monocyte, Absolute 0.4 10 3/mcL Normal 0.2-1.0 [facility] ([place]) Comment on above: Performed By: #### B MP, ALB, A1C, ABOG, GFR, ANSG #### [address] [address] Monocytes/100 WBC (Bld) 8.9 % Normal 1.7-13.0 [facility] ([place]) Comment on above: Performed By: #### B MP, ALB, A1C, ABOG, GFR, ANSG #### [address] [address] Neutrophils/100 WBC (Bld) 59.2 % Normal 37.0-80.0 [facility] ([place]) Comment on above: Performed By: #### B MP, ALB, A1C, ABOG, GFR, ANSG #### [address] [address] .GFRon 02-13-2022 GFR 85 ml/min/1.73sqm Normal [facility] ([place]) Comment on above: Result Comment: GFR Population mean for , Non- Americans Ages 20-29 = 116 mL/min/1.73 sq.m. Ages 30-39 = 107 mL/min/1.73 sq.m. Ages 40-49 = 99 mL/min/1.73 sq.m. Ages 50-59 = 93 mL/min/1.73 sq.m. Ages 60-69 = 85 mL/min/1.73 sq.m. Ages 70+ = 75 mL/min/1.73 sq.m. Chronic Kidney Disease: Less than 60 mL/min/1.73 square meters End Stage Renal Disease: Less than 15 mL/min/1.73 square meters Performed By: #### G FR, BMP, ADIFF, CBC, ANEU #### [address] [address] GFR Non- 70 ml/min/1.73sqm Normal [facility] ([place]) Comment on above: Result Comment: GFR Population mean for , Non- Americans Ages 20-29 = 116 mL/min/1.73 sq.m. Ages 30-39 = 107 mL/min/1.73 sq.m. Ages 40-49 = 99 mL/min/1.73 sq.m. Ages 50-59 = 93 mL/min/1.73 sq.m. Ages 60-69 = 85 mL/min/1.73 sq.m. Ages 70+ = 75 mL/min/1.73 sq.m. Chronic Kidney Disease: Less than 60 mL/min/1.73 square meters End Stage Renal Disease: Less than 15 mL/min/1.73 square meters Performed By: #### G FR, BMP, ADIFF, CBC, ANEU #### [address] [address] .NEUABSon 02-13-2022 Neutrophil, Absolute 2.9 10 3/mcL Normal 2.9-6.2 [facility] ([place]) Comment on above: Performed By: #### B MP, ALB, A1C, ABOG, GFR, ANSG #### [address] [address] A1Con 02-13-2022 HbA1c (Bld) [Mass fraction] 5.6 % Normal 4.3-6.4 [facility] ([place]) Comment on above: Performed By: #### G FR, BMP, ADIFF, CBC, ANEU #### [address] [address] ALBon 02-13-2022 Albumin Level 3.6 G/dL Normal 3.4-4.8 [facility] ([place]) Comment on above: Performed By: #### G FR, BMP, ADIFF, CBC, ANEU #### [address] [address] BMPon 02-13-2022 BUN/Creatinine Ratio 26 ratio Normal 7-27 [facility] ([place]) Comment on above: Performed By: #### B MP, ALB, A1C, ABOG, GFR, ANSG #### [address] [address] Calcium [Mass/Vol] 9.1 mg/dL Normal 8.4-10.2 [facility] ([place]) Comment on above: Performed By: #### B MP, ALB, A1C, ABOG, GFR, ANSG #### [address] [address] Chloride [Moles/Vol] 106 mmol/L Normal 98-107 [facility] ([place]) Comment on above: Performed By: #### B MP, ALB, A1C, ABOG, GFR, ANSG #### [address] [address] CO2 [Moles/Vol] 26 mmol/L Normal 23-31 [facility] ([place]) Comment on above: Performed By: #### B MP, ALB, A1C, ABOG, GFR, ANSG #### [address] [address] Creatinine [Mass/Vol] 1.05 mg/dL Normal 0.70-1.30 [facility] Comment on above: Performed By: #### B MP, ALB, A1C, ABOG, GFR, ANSG #### [address] [address] Electrolyte Balance 10.0 mEq/L Normal 4.0-15.0 [facility] ([place]) Comment on above: Performed By: #### B MP, ALB, A1C, ABOG, GFR, ANSG #### [address] [address] Glucose [Mass/Vol] 107 mg/dL Normal 80-115 [facility] ([place]) Comment on above: Performed By: #### B MP, ALB, A1C, ABOG, GFR, ANSG #### [address] [address] Potassium [Moles/Vol] 4.3 mmol/L Normal 3.5-5.1 [facility] [place] Comment on above: Performed By: #### B MP, ALB, A1C, ABOG, GFR, ANSG #### [address] [address] Sodium [Moles/Vol] 142 mmol/L Normal 136-145 [facility] ([place]) Comment on above: Performed By: #### B MP, ALB, A1C, ABOG, GFR, ANSG #### [address] [address] Urea nitrogen [Mass/Vol] 27 mg/dL High 7-18 [facility] ([place] Comment on above: Performed By: #### B MP, ALB, A1C, ABOG, GFR, ANSG #### [address] [address] CBCon 02-13-2022 Erythrocyte distribution width (RBC) [Ratio] 13.4 % Normal 11.5-14.5 [facility] ([place] Comment on above: Order Comment: Pre-A dmission Testing Performed By: #### B MP, ALB, A1C, ABOG, GFR, ANSG #### [address] [address] Hematocrit (Bld) [Volume fraction] 38.6 % Low 42.0-52.0 [facility] ([place]) Comment on above: Order Comment: Pre-A dmission Testing Performed By: #### B MP, ALB, A1C, ABOG, GFR, ANSG #### [address] [address] Hgb 13.4 G/dL Low 14.0-18.0 [facility] ([place] Comment on above: Order Comment: Pre-A dmission Testing Performed By: #### B MP, ALB, A1C, ABOG, GFR, ANSG #### [address] [address] MCH (RBC) [Entitic mass] 31.2 pg Normal 27.0-31.2 [facility] ([place] Comment on above: Order Comment: Pre-A dmission Testing Performed By: #### B MP, ALB, A1C, ABOG, GFR, ANSG #### [address] [address] MCHC 34.7 G/dL Normal 31.8-35.4 [facility] ([place] Comment on above: Order Comment: Pre-A dmission Testing Performed By: #### B MP, ALB, A1C, ABOG, GFR, ANSG #### [address] [address] MCV (RBC) [Entitic vol] 90.0 fL Normal 80.0-94.0 [facility] ([place] Comment on above: Order Comment: Pre-A dmission Testing Performed By: #### B MP, ALB, A1C, ABOG, GFR, ANSG #### [address] [address] Platelet 225 10 3/mcL Normal 130-400 [facility] ([place] Comment on above: Order Comment: Pre-A dmission Testing Performed By: #### B MP, ALB, A1C, ABOG, GFR, ANSG #### [address] [address] Platelet mean volume (Bld) [Entitic vol] 8.4 fL Normal 7.4-10.4 [facility] ([place] Comment on above: Order Comment: Pre-A dmission Testing Performed By: #### B MP, ALB, A1C, ABOG, GFR, ANSG #### [address] [address] RBC 4.29 10 6/mcL Normal 4.04-6.13 [facility] ([place] Comment on above: Order Comment: Pre-A dmission Testing Performed By: #### B MP, ALB, A1C, ABOG, GFR, ANSG #### [address] [address] WBC 4.8 10 3/mcL Normal 4.6-10.8 [facility] ([place] Comment on above: Order Comment: Pre-A dmission Testing Performed By: #### B MP, ALB, A1C, ABOG, GFR, ANSG #### [address] [address] [address] KNEE W/O CONTRAST RIGHTon 02-13-2022 CT KNEE W/O CONTRAST RIGHT ORIGINAL EXAMINATION: CT OF THE RIGHT KNEE WITHOUT CONTRAST 02/13/2022 2:44 pm TECHNIQUE: CT of the right knee was performed without the administration of intravenous contrast. Multiplanar reformatted images are provided for review. Automated exposure control, iterative reconstruction, and/or weight based adjustment of the mA/kV was utilized to reduce the radiation dose to as low as reasonably achievable. COMPARISON: None. HISTORY ORDERING SYSTEM PROVIDED HISTORY: Reason for Exam: M21.061. Chronic knee pain. Valgus deformity, not elsewhere classified. FINDINGS: No acute fracture or dislocation is evident. Normal osseous mineralization. No visible aggressive osseous lesion. There is a bone island posterior aspect of the lateral tibial plateau. Rpxc-sy-qmdixjng tricompartmental joint space narrowing is noted with marginal osteophyte formation, most pronounced of the lateral femorotibial compartment where there is mild subchondral sclerosis. Small volume effusion no significant volume of fluid is evident of a popliteal cyst. Visible tendons appear grossly intact. Ligaments are poorly evaluated on this examination. No muscle atrophy. Provided images of the right hip and right hemipelvis demonstrate no acute osseous abnormalities or aggressive osseous lesions. There is a posterolateral right bladder diverticulum measuring approximately 2.8 cm AP dimension. There are sc dystrophic lerotic calcifications present of the prostate gland. No acute intrapelvic process noted. Provided images of the ankle exhibit no acute osseous abnormalities or aggressive osseous lesions. Mild atherosclerosis noted diffusely. Nonspecific prepatellar subcutaneous edema. IMPRESSION: 1. No acute osseous abnormalities or aggressive osseous lesions. 2. 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 Small volume effusion. Interpreted by: Dennis Wilks DO Preliminary Report By: Dennis Wilks DO Electronically signed By Dennis Wilks DO Dictated Date: 02/13/2022 2:46:25 PM Prelim Date: 02/13/2022 2:52:07 PM Sign Date: 02/13/2022 2:52:07 PM Ordering Provider: PRATIK JANE Normal [facility]) Gel ABOon 02-13-2022 ABO/Rh Interp Positive Invalid Interpretation Code [facility]) Comment on above: Performed By: #### G FR, BMP, ADIFF, CBC, ANEU #### [address] [address] Gel ABSon 02-13-2022 Antibody Screen Gel Negative Normal [facility] ([place]) Comment on above: Performed By: #### G FR, BMP, ADIFF, CBC, ANEU #### [place] [id number] [place] [address] LABORATORYOrdered By: Anna De La Cruz on 02-13-2022 ABO/Rh Interp Positive Invalid Interpretation Code AO BB SS Antibody Screen Gel Negative ABSC (02/13/22 2:18 PM) Invalid Interpretation Code AO BB SS LABORATORYOrdered By: SYSTEM SYSTEM on 02-13-2022 Albumin BCP dye [Mass/Vol] 3.6 G/dL Invalid Interpretation Code 3.4 - 4.8 G/dL AO ADM SS Calcium [Mass/Vol] 9.1 mg/dL Invalid Interpretation Code 8.4 - 10.2 mg/dL AO ADM SS Chloride [Moles/Vol] 106 mmol/L Invalid Interpretation Code 98 - 107 mmol/L AO ADM SS CO2 [Moles/Vol] 26 mmol/L Invalid Interpretation Code 23 - 31 mmol/L AO ADM SS Creatinine [Mass/Vol] 1.05 mg/dL Invalid Interpretation Code 0.70 - 1.30 mg/dL AO ADM SS Electrolyte Balance 10.0 mEq/L Invalid Interpretation Code 4.0 - 15.0 mEq/L AO ADM SS GFR 85 ml/min/1.73sqm Invalid Interpretation Code AO Chemistry S GFR Non- 70 ml/min/1.73sqm Invalid Interpretation Code AO Chemistry S Glucose [Mass/Vol] 107 mg/dL Invalid Interpretation Code 80 - 115 mg/dL AO ADM SS HbA1c (Bld) [Mass fraction] 5.6 % Invalid Interpretation Code 4.3 - 6.4 % AO ADM SS Potassium [Moles/Vol] 4.3 mmol/L Invalid Interpretation Code 3.5 - 5.1 mmol/L AO ADM SS Sodium [Moles/Vol] 142 mmol/L Invalid Interpretation Code 136 - 145 mmol/L AO ADM SS Urea nitrogen [Mass/Vol] 27 mg/dL Invalid Interpretation Code 7 - 18 mg/dL AO ADM SS Urea nitrogen/Creatinine [Mass ratio] 26 ratio Invalid Interpretation Code 7 - 27 ratio AO ADM SS LABORATORYOrdered By: Sia Herrera on 02-13-2022 Basophil, Absolute 0.1 103/mcL Invalid Interpretation Code 0.0 - 0.2 10^3/mcL AO Workflow SS Basophils/100 WBC (Bld) 1.1 % Invalid Interpretation Code 0.0 - 2.5 % AO Workflow SS Eosinophil, Absolute 0.2 103/mcL Invalid Interpretation Code 0.0 - 0.4 10^3/mcL AO Workflow SS Eosinophils/100 WBC (Bld) 3.2 % Invalid Interpretation Code 0.0 - 7.0 % AO Workflow SS Erythrocyte distribution width (RBC) [Ratio] 13.4 % Invalid Interpretation Code 11.5 - 14.5 % AO Workflow SS Hematocrit (Bld) [Volume fraction] 38.6 % Invalid Interpretation Code 42.0 - 52.0 % AO Workflow SS Hemoglobin (Bld) [Mass/Vol] 13.4 G/dL Invalid Interpretation Code 14.0 - 18.0 G/dL AO Workflow SS Lymphocyte, Absolute 1.3 103/mcL Invalid Interpretation Code 0.8 - 3.9 10^3/mcL AO Workflow SS Lymphocytes/100 WBC (Bld) 27.6 % Invalid Interpretation Code 10.0 - 50.0 % AO Workflow SS MCH (RBC) [Entitic mass] 31.2 pg Invalid Interpretation Code 27.0 - 31.2 pg AO Workflow SS MCHC 34.7 G/dL Invalid Interpretation Code 31.8 - 35.4 G/dL AO Workflow SS MCV (RBC) [Entitic vol] 90.0 fL Invalid Interpretation Code 80.0 - 94.0 fL AO Workflow SS Monocyte, Absolute 0.4 103/mcL Invalid Interpretation Code 0.2 - 1.0 10^3/mcL AO Workflow SS Monocytes/100 WBC (Bld) 8.9 % Invalid Interpretation Code 1.7 - 13.0 % AO Workflow SS Neutrophil, Absolute 2.9 103/mcL Invalid Interpretation Code 2.9 - 6.2 10^3/mcL AO Workflow SS Neutrophils/100 WBC (Bld) 59.2 % Invalid Interpretation Code 37.0 - 80.0 % AO Workflow SS Platelet mean volume (Bld) [Entitic vol] 8.4 fL Invalid Interpretation Code 7.4 - 10.4 fL AO Workflow SS Platelets (Bld) [#/Vol] 225 103/mcL Invalid Interpretation Code 130 - 400 10^3/mcL AO Workflow SS RBC (Bld) [#/Vol] 4.29 106/mcL Invalid Interpretation Code 4.04 - 6.13 10^6/mcL AO Workflow SS WBC (Bld) [#/Vol] 4.8 103/mcL Invalid Interpretation Code 4.6 - 10.8 10^3/mcL AO Workflow SS Basophil percentageon 2021 Bilirubin [Mass/Vol] 0.60 mg/dL 0.20-1.00 [facility] Work Phone: Comment on above: For patients on eltr ombopag therapy, use of Dimension [place] TBIL is not recommended. Chloride [Moles/Vol] 102 mmol/L 98-107 [facility] Work Phone: Cholesterol [Mass/Vol] 202 mg/dL <200 [facility] Work Phone: Comment on above: <200 mg/dL Desirable 200-240 mg/dL Borderline >240 mg/dL High Risk Glucose [Mass/Vol] 113 mg/dL 74-106 [facility] Work Phone: Comment on above: Fasting Glucose resu lt from 100 to 125 mg/dL suggests IMPAIRED HOMEOSTASIS per A.D.A. criteria. Potassium [Moles/Vol] 3.6 mmol/L 3.5-5.1 [facility] Work Phone: Protein [Mass/Vol] 7.1 g/dL 6.4-8.2 [facility] Work Phone: Sodium [Moles/Vol] 139 mmol/L 136-145 [facility] Work Phone: Triglyceride [Mass/Vol] 84 mg/dL <199 [facility] Work Phone: Comment on above: The drugs N-Acetylcy steine and Metamizole may falsely depress this assay.Serum Triglycerides Reference Interval Normal <150 mg/dL Borderline high 150 - 199 mg/dL High 200 - 499 mg/dL Very High > or = 500 mg/dL Laboratory - Chemistry and C hemistry - challengeon 12-09-2021 ALP [Catalytic activity/Vol] 56 U/L 45-117 [facility] Work Phone: ALT [Catalytic activity/Vol] 28 U/L 16-61 [facility] Work Phone: CO2 [Moles/Vol] 30.0 mmol/L 21.0-32.0 [facility] Work Phone: Globulin (S) [Mass/Vol] 3.6 g/dL 2.2-4.2 [facility] Work Phone: Urea nitrogen/Creatinine [Mass ratio] 20.2 mg/mg 10-20 [facility] Work Phone: No Panel Informationon 12-09 Estimated GFR (MDRD) Amer 103 mL/min >60 [facility] Work Phone: Comment on above: GFR Calc Estimated GFR (MDRD) Non-Af Amer 85 mL/min >60 [facility] Work Phone: Comment on above: Non- GFR Calc Prostate Specific Antigen Screen 4.12 ng/mL 0.00-4.00 [facility] Work Phone: Comment on above: This test was perfor med using the TPSA assay method for [employer] system. Values obtained with differentassay methods cannot be used interchangably.When changing PSA assays in the course of monitoring apatient, additional sequential testing should be carriedout to confirm baseline values. Serum or plasma albumin jt urement (mass/volume)on 12-09-2021 Albumin [Mass/Vol] 3.5 g/dL 3.2-5.0 [facility] Work Phone: Serum or plasma albumin/glob ulin mass ratioon 12-09-2021 Albumin/Globulin [Mass ratio] 1.0 {ratio} 0.9-2.4 [facility] Work Phone: Serum or plasma calcium jt urement (mass/volume)on 12-09-2021 Calcium [Mass/Vol] 8.8 mg/dL 8.5-10.1 [facility] Work Phone: Serum or plasma cholesterol in HDL measurement (mass/volume)on 12-09-2021 Cholesterol in HDL [Mass/Vol] 57 mg/dL >40 [facility] Work Phone: Comment on above: The drugs N-Acetylcy steine and Metamizole may falsely depress this assay. Reference Range HDL <40 mg/dL Low HDL Cholesterol HDL >or= 60 mg/dL High HDL Cholesterol Serum or plasma cholesterol in VLDL measurement (mass/volume)on 12-09-2021 Cholesterol in VLDL [Mass/Vol] 17 mg/dL 5-40 [facility] Work Phone: Serum or plasma creatinine m easurement (mass/volume)on 12-09-2021 Creatinine [Mass/Vol] 0.94 mg/dL 0.70-1.30 [facility] Work Phone: Comment on above: The validity of the calculated GFR & GFRAA in patients over 70 years has not been determined. Clinical correlation is essential. Serum or plasma low density lipoprotein (LDL) cholesterol measurement (mass/volume)on 12-09-2021 Cholesterol in LDL [Mass/Vol] 128 mg/dL 0-130 [facility] Work Phone: Serum or plasma urea nitroge n measurement (mass/volume)on 12-09-2021 Urea nitrogen [Mass/Vol] 19 mg/dL 7-18 [facility] Work Phone: Thin prep Papanicolaou smear with manual screeningon 12-09-2021 Thin prep Papanicolaou smear with manual screening 15 U/L 15-37 [facility] Work Phone: Thin prep Papanicolaou smear with manual screening 7 5-15 [facility] Work Phone: Vital Signs Date Time Vital Sign Value Performing Clinician Facility 09-14-2024 15:50-0400 Body temperature 96.91 [degF] Zhen Calzada MD Work Phone: [facility] 09-14-2024 15:50-0400 Body weight 114.8 kg Zhen Calzada MD Work Phone: [facility] 09-14-2024 15:50-0400 Diastolic blood pressure 64 mm[Hg] Zhen Calzada MD Work Phone: [facility] 09-14-2024 15:50-0400 Heart rate 76 /min Zhen Calzada MD Work Phone: [facility] 09-14-2024 15:50-0400 Respiratory rate 16 /min Zhen Calzada MD Work Phone: [facility] 09-14-2024 15:50-0400 SaO2% (BldA) [Mass fraction] 96 % Zhen Calzada MD Work Phone: [facility] 09-14-2024 15:50-0400 Systolic blood pressure 102 mm[Hg] Zhen Calzada MD Work Phone: [facility] 02-28-2022 20:50-0500 Body height 187.96 cm [facility] Work Phone: 02-28-2022 20:50-0500 Body mass index (BMI) [Ratio] 32.1 kg/m2 [facility] Work Phone: 02-28-2022 20:50-0500 Body temperature 97.8 [degF] [facility] Work Phone: 02-28-2022 20:50-0500 Body weight 113.39 kg [facility] Work Phone: 02-28-2022 20:50-0500 Diastolic blood pressure 126 mm[Hg] [facility] Work Phone: 02-28-2022 20:50-0500 Heart rate 63 /min [facility] Work Phone: 02-28-2022 20:50-0500 Respiratory rate 15 /min [facility] Work Phone: 02-28-2022 20:50-0500 SaO2% (BldA) [Mass fraction] 93 % [facility] Work Phone: 02-28-2022 20:50-0500 Systolic blood pressure 141 mm[Hg] [facility] Work Phone: 02-26-2022 12:34-0500 Body temperature 97.7 [degF] DR PRATIK JANE MD [facility] 02-26-2022 12:34-0500 Diastolic Blood Pressure Non-Invasive [address] PRATIK JANE MD [facility] 02-26-2022 12:34-0500 Heart rate 60 /min DR PRATIK JANE MD [facility] 02-26-2022 12:34-0500 Reason For Taking VItal Signs DR PRATIK JANE MD [facility] 02-26-2022 12:34-0500 Respiratory rate 16 /min DR PRATIK JANE MD [facility] 02-26-2022 12:34-0500 Systolic Blood Pressure Non-Invasive [address] PRATIK JANE MD [facility] 02-26-2022 08:09-0500 Body temperature 97.88 [degF] DR PRATIK JANE MD [facility] 02-26-2022 08:09-0500 Diastolic Blood Pressure Non-Invasive [address] PRATIK JANE MD [facility] 02-26-2022 08:09-0500 Heart rate 68 /min DR PRATIK JANE MD [facility] 02-26-2022 08:09-0500 Reason For Taking VItal Signs DR PRATIK JANE MD [facility] 02-26-2022 08:09-0500 Respiratory rate 18 /min DR PRATIK JANE MD [facility] 02-26-2022 08:09-0500 Systolic Blood Pressure Non-Invasive [address] PRATIK JANE MD [facility] 02-26-2022 05:00-0500 Body temperature 98.42 [degF] DR PRATIK JANE MD [facility] 02-26-2022 05:00-0500 Diastolic Blood Pressure Non-Invasive [address] PRATIK JANE MD [facility] 02-26-2022 05:00-0500 Heart rate 62 /min DR PRATIK JANE MD [facility] 02-26-2022 05:00-0500 Systolic Blood Pressure Non-Invasive [address] PRATIK JANE MD [facility] 02-25-2022 19:40-0500 Heart rate 74 /min DR PRATIK JANE MD [facility] 02-25-2022 16:13-0500 Body height 190.[address] PRATIK JANE MD [facility] 02-25-2022 16:13-0500 Body weight 113.[address] PRATIK JANE MD [facility] 02-25-2022 16:13-0500 Body weight 31.3 kg/m2 DR PRATIK JANE MD [facility] 02-25-2022 13:35-0500 Body temperature 96.98 [degF] DR PRATIK JANE MD [facility] 02-25-2022 13:30-0500 Respiratory Rate - Anes 0 br/min DR PRATIK JANE MD [facility] 02-25-2022 13:25-0500 Respiratory Rate - Anes 16 br/min DR PRATIK JANE MD [facility] 02-25-2022 13:20-0500 Respiratory Rate - Anes 17 br/min DR PRATIK JANE MD [facility] 02-25-2022 10:10-[address] PRATIK JANE MD [facility] 02-25-2022 10:10-[address] PRATIK Grey [facility] 02-25-2022 10:10-0500 Body height 190.[address] PRATIK JANE MD [facility] 02-25-2022 10:10-0500 Body temperature 96.62 [degF] DR PRATIK JANE MD [facility] 02-25-2022 10:10-0500 Body weight 113.[address] PRATIK JANE MD [facility] 02-25-2022 10:10-0500 Heart rate 76 /min DR PRATIK JANE MD [facility] 02-13-2022 13:44-05[address] Pressure Cuff Size DR PRATIK JANE MD [facility] 02-13-2022 13:44-[address] PRATIK JANE MD [facility] 02-13-2022 13:44-[address] PRATIK Grey [facility] 02-13-2022 13:44-0500 Body height 190.[address] PRATIK JANE MD [facility] 02-13-2022 13:44-0500 Body weight 113.[address] PRATIK JANE MD [facility] 02-13-2022 13:44-0500 Body weight 31.3 kg/m2 DR PRATIK JANE MD [facility] 02-13-2022 13:44-0500 Diastolic Blood Pressure Non-Invasive [address] PRATIK JANE MD [facility] 02-13-2022 13:44-0500 Heart rate 68 /min DR PRATIK JANE MD [facility] 02-13-2022 13:44-0500 Systolic Blood Pressure Non-Invasive [address] PRATIK JANE MD [facility] 09-16-2021 10:03-0400 Body temperature 98.6 [degF] Zhen Calzada MD Work Phone: [facility] 09-16-2021 10:03-0400 Body weight 117.03 kg Zhen Calzada MD Work Phone: [facility] 09-16-2021 10:03-0400 Diastolic blood pressure 68 mm[Hg] Zhen Calzada MD Work Phone: [facility] 09-16-2021 10:03-0400 Heart rate 100 /min Zhen Calzada MD Work Phone: [facility] 09-16-2021 10:03-0400 Respiratory rate 18 /min Zhen Calzada MD Work Phone: [facility] 09-16-2021 10:03-0400 SaO2% (BldA) [Mass fraction] 96 % Zhen Calzada MD Work Phone: [facility] 09-16-2021 10:03-0400 Systolic blood pressure 124 mm[Hg] Zhen Calzada MD Work Phone: [facility] Encounters Encounter Date Encounter Type Care Provider Facility Start: 12-12-2024 ambulatory [facility] Facility: [facility] Start: 09-14-2024 End: 09-14-2024 Office outpatient visit 25 minutes Zhen Calzada MD Work Phone: [facility] Comment on above: Contusion of left lo wer extremity, initial encounter (Primary Dx); Cellulitis of left lower extremity Start: 09-14-2024 End: 09-14-2024 ambulatory ZHEN CALZADA Facility:[facility] Start: 01-29-2024 End: 01-29-2024 ambulatory [facility] Facility:[facility] Start: 01-20-2023 End: 01-20-2023 ambulatory [facility] Work Phone: Start: 01-20-2023 End: 01-20-2023 Patient encounter procedure [facility] Start: 09-02-2022 End: 09-02-2022 ambulatory [facility] Work Phone: Start: 09-02-2022 End: 09-02-2022 Patient encounter procedure [facility]Pulmonary Services/Neurology Work Phone: Start: 08-27-2022 End: 08-27-2022 ambulatory [facility] Work Phone: Start: 08-27-2022 End: 08-27-2022 Patient encounter procedure [facility]Ultrasound, [facility] Work Phone: Start: 08-20-2022 End: 08-20-2022 ambulatory [facility] Work Phone: Start: 08-20-2022 End: 08-20-2022 Patient encounter procedure [facility] Start: 06-19-2022 End: 06-19-2022 Patient encounter procedure [facility] Work Phone: Start: 02-28-2022 End: 02-28-2022 Emergency department patient visit [facility]Emergency Department Start: 02-25-2022 End: 02-26-2022 ambulatory PRATIK JANE MD Facility:[facility] Start: 02-25-2022 End: 02-26-[address] PRATIK JANE MD [facility] Start: 02-13-2022 End: 02-14-2022 ambulatory PRATIK JANE MD Facility:[facility] Start: 02-13-2022 End: 02-14-2022 ambulatory PRATIK JANE MD Facility:[facility] Start: 02-13-2022 End: 02-13-[address] PRATIK JANE MD [facility] Start: 02-13-2022 End: 02-13-[address] PRATIK JANE MD [facility] Start: 12-09-2021 End: 12-09-2021 Patient encounter procedure [facility]Labor[facility] Start: 09-18-2021 Telephone encounter Zhen Toro MD Work Phone: [facility] Comment on above: COVID test results Start: 09-16-2021 End: 09-16-2021 Patient encounter procedure Zhen Calzada MD Work Phone: [facility] Comment on above: URI, acute (Primary Dx); Mild intermittent asthma without complication Procedures Date Procedure Procedure Detail Performing Clinician Start: 08-27-2022 Ultrasonography of abdomen Start: 05-11-2018 Colonoscopy Zhen haas MD Work Phone: Start: 01-04-2011 Lipid 1996 panel - S sofie or Plasma Zhen Calzada MD Work Phone: Arthroscope, device (physical object) DR PRATIK JANE MD Comment on above: right knee Colonoscopy DR PRATIK Lambert MD Plan of Treatment Date Care Activity Detail Author Start: 10-17-2024 Influenza vaccination Influenza Vacc ine (#1) [facility] Start: 02-17-2024 Advance Directive Discussion Advance Directive Discussion [facility] Start: 05-12-2023 Colonoscopy COLONOSCOPY [facility] Start: 05-12-2023 COLORECTAL CANCER SCREENING COLORECTAL CANCER SCREENING [facility] Start: 05-12-2023 Screening for malign ant neoplasm of colon [facility] Start: 10-17-2021 Influenza vaccination INFLUENZA (#1) [facility] Start: 09-16-2021 End: 09-30-2021 SARS-CoV-2 (COVID-19) RNA [Presence] in Respiratory specimen by MIRIAM with probe detection 2019 CORONAVIRUS Microbiology Routine URI, acute Mild intermittent asthma without complication Expected: 09/16/2021, Expires: 09/30/2021 [facility] Work Phone: Comment on above: Expected: 09/16/2021 , Expires: 09/30/2021 Start: 02-16-2021 ADVANCE DIRECTIVE DISCUSSION ADVANCE DIRECTIVE DISCUSSION [facility] Start: 04-18-2019 PNEUMOCOCCAL: 65+ (1 - PCV) PNEUMOCOCCAL: 65+ (1 - PCV) [facility] Start: 2019 Medicare Annual Well ness Visit Medicare Annual Wellness Visit [facility] Start: 07-18-2017 Urine microalbumin profile [facility] Start: 01-05-2016 Lipid panel Lipid Screening [facility] Start: 01-05-2016 LIPID SCREEN LIPID SCREEN [facility] Start: 01-05-2016 PROSTATE CANCER SCREENING DISCUSSION PROSTATE CANCER SCREENING DISCUSSION [facility] Start: 01-04-2014 DIABETES SCREEN DIABETES SCREEN [facility] Start: 01-04-2014 Diabetes Screening Diabetes Screenin g [facility] Start: 2004 Pneumococcal Vaccine : 50+ (1 of 1 - PCV) Pneumococcal Vaccine: 50+ (1 of 1 - PCV) [facility] Start: 2004 SHINGRIX VACCINE (1 of 2) SHINGRIX VACCINE (1 of 2) [facility] Start: 04-18-1999 COLOGUARD (FIT-DNA) COLOGUARD (FIT-D NA) [facility] Start: 04-18-[address] COLONOGRAPHY [facility] Start: 04-18-1999 FECAL OCCULT BLOOD FECAL OCCULT BLOO D [facility] Start: 04-18-1999 Screening for malign ant neoplasm of colon [facility] Start: 04-18-1999 SIGMOIDOSCOPY SIGMOIDOSCOPY [facility] Start: 1972 Anxiety Screening Anxiety Screening [facility] Start: 1972 Depression Screening Depression Scre ening [facility] Start: 1972 HEPATITIS C SCREENING HEPATITIS C [facility] Start: 1972 Hepatitis C screening Hepatitis C [facility] Start: 1966 Adult depression screening assessment DEPRESSION SCREENING [facility] Start: 1954 COVID-19 VACCINE (#1) COVID-19 VACCI NE (#1) [facility] Patient Education Knee Replaceme nt Post Op ED Wound Check (No Infection) [facility] Work Phone: Patient referral [facility] Work Phone: Immunizations Immunization Date Immunization Notes Care Provider [facility] 01-29-2024 influenza virus vaccine, unspecified formulation Zhen Calzada MD Work Phone: [facility] 12-27-2021 influenza virus vaccine, unspecified formulation DR PRATIK JANE MD [facility] 08-08-2021 SARS-CoV-2 mRNA (szvdrhqpiix-rixr-ndigk se) vaccine DR PRATIK JANE MD [facility] 12-18-2020 influenza virus vaccine, unspecified formulation DR PRATIK JANE MD [facility] 12-18-2020 SARS-CoV-2 mRNA (tozinameran) vaccine DR PRATIK JANE MD [facility] Comment on above: Result Comment: 2022: [id number] 06-28-[address] PRATIK JANE MD [facility] 05-11-2020 SARS-CoV-2 (COVID-19 ) mRNA-[address] PRATIK JANE MD [facility] 04-13-2020 SARS-CoV-2 (COVID-19 ) mRNA-[address] PRATIK JANE MD [facility] 10-28-[address] PRATIK JANE MD [facility] 03-11-2017 influenza virus vaccine, unspecified formulation DR PRATIK JANE MD [facility] 05-28-2010 yellow fever vaccine Zhen Goldsmith MD Work Phone: [facility] Work Phone: 12-18-2009 influenza virus vaccine, unspecified formulation Zhen Calzada MD Work Phone: [facility] Work Phone: 07-19-2007 tetanus toxoid, redu carlee diphtheria toxoid, and acellular pertussis vaccine, adsorbed Zhen Calzada MD Work Phone: [facility] Work Phone: Payers Date Payer Category Payer Self-pay [id number] 2023 Private Health Insurance [employer] [id number] 2023 Private Health Insurance [id number] 2021 Private Health Insurance [id number] 2021 Unknown [employer] PPO [id number] 2021-Present [phone] [address] [place] [address] PPO [id number] 2019 Medicare MEDICARE [id number] 2019 Medicare [id number] 2010 Private Health Insurance [facility] [id number] 1954 Unknown [id number] 1954 Unknown [id number] 1954 Unknown [id number] Unknown [id number] Unknown [facility] PACKAGE PLAN [id number] Unknown [id number] Unknown [id number] Social History Date Type Detail Facility Start: 01-02-2011 End: 02-13-2022 Tobacco smoking status NHIS Never smoked tobacco [facility] Work Phone: Start: 09-16-2021 Alcohol intake Current drinke r of alcohol (finding) [facility] Start: 1955 Sex Assigned At Not on file C [facility] Start: 09-06-2021 End: 09-16-2021 Exposure to SARS-CoV-2 (event) Yes [facility] Work Phone: Start: 1955 Sex Assigned At Male A [facility] Start: 02-28-2022 End: 02-28-2022 Tobacco smoking status NHIS Unknown if ever smoked [facility] Start: 11-03-2013 Occasional [facility] Start: 11-03-2013 None [facility] Start: 11-03-2013 Non-smoker [facility] Start: 01-02-2011 Tobacco use and exposure Smokeless tobacco non-user [facility] Start: 09-16-2021 History of Social function [facility] Start: 09-16-2021 Tobacco use panel [facility] Functional Status Date Assessment Result Facility 02-26-2022 Functional Status Room check performed [facility] 02-26-2022 Functional Status flight [facility] 02-26-2022 Functional Status Multilevel kwabena e, 1st floor bedroom, 1st floor bathroom [facility] 02-26-2022 Functional Status [facility] 02-25-2022 Functional Status Supervised [facility] 02-25-2022 Functional Status ice on, tension pillow in place [facility] 02-25-2022 Functional Status Maintained [facility] 02-13-2022 Functional Status Sensory Deficits None A [facility] Mental Status Date Assessment Result Facility 02-26-2022 Mental Status Orientation Asse ssment Oriented x 4 [facility] 02-26-2022 Mental Status Orientation Oriented x 4 [facility] 02-26-2022 Mental Status [facility] 02-25-2022 Mental Status [facility] 02-25-2022 Mental Status [facility] Clinical Notes 07-02-2006 to 09-14-2024 Zhen Calzada MD - 09/14/2024 4:06 PM EDTTelephone Encounter - Ignacia Hoffman - 09/18/2021 3:33 PM EDTTelephone Encounter - Clara Dexter LPN - 09/18/2021 1:51 PM EDT Note Date & Type Note Facility 09-14-2024 Note HNO ID: [id number] Author: ZHEN CALZADA MD Service: ? Author Type: Physician Type: Progress Notes Filed: 09/14/2024 16:11 Note Text: [facility] Rick Leal is a 69 year old male. Patient presents with: LESION, SKIN: on left lower leg x several days, fell and caught leg on metal lip of step Patient presents with concern for cellulitis in the left lower leg. He hit the bob on a metal stair 1 week ago. The last couple days it has had increased redness and swelling. It is a little tender to palpation. He has history of cellulitis in the left lower leg and some chronic edema from that. Denies fever, chills, or drainage. He has taken no medicines and applied no treatment to the area. He denies any known issues with drug-resistant staph or exposure to someone with it. Review of Systems Objective BP 102/64 Pulse 76 Temp 36.1 ?C (96.9 ?F) Resp 16 Wt 114.8 kg (253 lb 1.4 oz) SpO2 96% Physical Exam Constitutional: General: He is not in acute distress. Appearance: He is not ill-appearing. Eyes: Extraocular Movements: Extraocular movements intact. Conjunctiva/sclera: Conjunctivae normal. Pupils: Pupils are equal, round, and reactive to light. Cardiovascular: Rate and Rhythm: Normal rate and regular rhythm. Pulmonary: Effort: Pulmonary effort is normal. Breath sounds: Normal breath sounds. Musculoskeletal: Cervical back: Neck supple. Comments: 1 x 3 cm ecchymotic lesion left lower third of the bob with 3 cm halo of reddish hyperpigmentation. No warmth or fluctuance. Chronic edema of the medial ankle. Neurological: Mental Status: He is alert. {ASSESSMENT/PLAN: 1. Contusion of left lower extremity, initial encounter - ICD9: 924.5, ICD10: S80.12XA (primary diagnosis) 2. Cellulitis of left lower extremity - ICD9: 682.6, ICD10: L03.116 In increasing erythema and swelling over the last couple days may represent early cellulitis. He has history of cellulitis in the area and would be prone to reinfection. Start Keflex oral antibiotic. Follow up with signs of infection such as increasing redness, pain, swelling, purulent drainage, or fever/malaise. Zhen Calzada MD Differential Diagnoses - Contusion - Cellulitis is more likely for the following reason(s): Increasing erythema and edema Procedures [facility] 09-14-2024 History of Presen t illness Narrative [facility] Subjective Tom Leal is a 69 year old male. Patient presents with: LESION, SKIN: on left lower leg x several days, fell and caught leg on metal lip of step Patient presents with concern for cellulitis in the left lower leg. He hit the bob on a metal stair 1 week ago. The last couple days it has had increased redness and swelling. It is a little tender to palpation. He has history of cellulitis in the left lower leg and some chronic edema from that. Denies fever, chills, or drainage. He has taken no medicines and applied no treatment to the area. He denies any known issues with drug-resistant staph or exposure to someone with it. Review of Systems Objective BP 102/64 Pulse 76 Temp 36.1 C (96.9 F) Resp 16 Wt 114.8 kg (253 lb 1.4 oz) SpO2 96% Physical Exam Constitutional: General: He is not in acute distress. Appearance: He is not ill-appearing. Eyes: Extraocular Movements: Extraocular movements intact. Conjunctiva/sclera: Conjunctivae normal. Pupils: Pupils are equal, round, and reactive to light. Cardiovascular: Rate and Rhythm: Normal rate and regular rhythm. Pulmonary: Effort: Pulmonary effort is normal. Breath sounds: Normal breath sounds. Musculoskeletal: Cervical back: Neck supple. Comments: 1 x 3 cm ecchymotic lesion left lower third of the bob with 3 cm halo of reddish hyperpigmentation. No warmth or fluctuance. Chronic edema of the medial ankle. Neurological: Mental Status: He is alert. {ASSESSMENT/PLAN: 1. Contusion of left lower extremity, initial encounter - ICD9: 924.5, ICD10: S80.12XA (primary diagnosis) 2. Cellulitis of left lower extremity - ICD9: 682.6, ICD10: L03.116 In increasing erythema and swelling over the last couple days may represent early cellulitis. He has history of cellulitis in the area and would be prone to reinfection. Start Keflex oral antibiotic. Follow up with signs of infection such as increasing redness, pain, swelling, purulent drainage, or fever/malaise. Zhen Calzada MD Differential Diagnoses - Contusion - Cellulitis is more likely for the following reason(s): Increasing erythema and edema Procedures documented in this encounter [facility] 02-26-2022 Nurse Discharge summary Discharged to home with . Escorted to the exit via w/c per MAU Kenny. Left at 1322. [facility] 02-26-2022 Note Date of Service 02/26/2022 Reason for Consultation Medical management Referring Physician Dr. Jane History of Present Illness 66-year-old male with past medical history significant for hypertension, GERD, and osteoarthritis. Patient presents to [facility] for elective right total knee arthroplasty by Dr. Jane. Patient is being seen in consultation for medical management of the above. Overnight patient remained afebrile and hemodynamically stable with adequate oxygen saturations on room air. Labs reviewed, H&H stable. Renal function stable. On exam today, pt denies any fever or chills. No headache or dizziness. Denies chest pain, palpitations. No cough, dyspnea, sputum production. Denies N/V/D/C. No melena/hematochezia. No dysuria or hematuria. No new paresthesias. Pain is well controlled. Review of Systems See HPI for specific ROS. All other systems reviewed and negative. Physical Exam Vitals and Measurements T: 36.5 C (Oral) TMIN: 36.5 C (Oral) TMAX: 36.9 C (Oral) HR: 60(Monitored) RR: 16 BP: 142/69 SpO2: 100% HT: 190.5 cm WT: 113.6 kg BMI: 31.3 Weight Dosing Weight: 113.6 kg (02/25/22) Dosing Weight: 113.6 kg (02/25/22) GEN: Appears chronically ill EYES: No conjunctival erythema, drainage. EOMI EARS: Hearing grossly intact. NOSE: No nasal discharge. THROAT: Oral cavity and pharynx pink and moist. CHEST: Normal S1 and S2. Rhythm is regular. Clear to auscultation, without rales, rhonchi, wheezing. ABD: Positive bowel sounds x 4 quads. Soft, nondistended, nontender. EXT: No significant deformity or joint abnormality. No edema. Peripheral pulses intact. NEURO: Sensation grossly intact SKIN: Surgical dressing in place PSYCH: The mental examination revealed the patient was alert and oriented x 4 Lab Results 02/26 05:28 WBC: 15.3 H Hgb: 11.9 L Hct: 33.9 L Platelet: 212 Neutrophil %: 89.4 H Glucose Level: 128 H Sodium Level: 137 Potassium Level: 4.6 BUN: 25 H Creatinine Lvl (s): 1.29 Assessment/Plan 1. Osteoarthritis 2. S/P total knee arthroplasty 3. HTN (hypertension) Osteoarthritis s/pright total knee arthroplasty. Management per primary team. Pain well controlled. HTN- SBP goal 140 or less. Continue home antihypertensives. DVT prophylaxis: SCDs Labs, diagnostics, and progress notes reviewed as noted in HPI Code Status: Full code Plan of care discussed with patient. All questions answered. Patient verbalizes understanding is agreeable to plan of care. Thank you for requesting our participation in the care of your patient. We will continue to follow during their hospitalization. This dictation was performed using voice recognition software and may include grammatical and/or spelling errors. Problem List/Past Medical History Ongoing No qualifying data Historical No qualifying data Procedure/Surgical History Colonoscopy Arthroscope Medications Inpatient Elisa Aspirin, 81 mg= 1 tab(s), Oral, BIDM Benadryl, 25 mg= 1 tab(s), Oral, q6h, PRN Benadryl, 25 mg= 0.5 mL, IV Push, q6h, PRN chlorthalidone, 25 mg= 1 tab(s), Oral, qDay Colace, 100 mg= 1 cap(s), Oral, BID Fleet Enema, 133 mL, Rectal, qDay, PRN losartan, 100 mg= 2 tab(s), Oral, qDay Milk of Magnesia, 30 mL, Oral, Daily Mobic, 7.5 mg= 1 tab(s), Oral, BIDM morphine, 2 mg= 1 mL, IV Push, q1h, PRN Multivitamin, 1 tab(s), Oral, qDayM oxyCODONE 5 mg oral tablet ( IMMEDIATE release ), 5 mg= 1 tab(s), Oral, q4h, PRN oxyCODONE 5 mg oral tablet ( IMMEDIATE release ), 10 mg= 2 tab(s), Oral, q4h, PRN Pepcid, 20 mg= 1 tab(s), Oral, qDay prochlorperazine, 5 mg= 1 mL, IV Push, q6h, PRN Senokot S, 2 tab(s), Oral, BID tamsulosin, 0.4 mg= 1 cap(s), Oral, BID Toradol, 15 mg= 0.5 mL, IV Push, q6h, PRN Tylenol, 1000 mg= 2 tab(s), Oral, q6hr Tylenol, 650 mg= 2 tab(s), Oral, q4h, PRN Zofran, 4 mg= 2 mL, IV Push, q8h, PRN Home acetaminophen 500 mg oral tablet, 1000 mg= 2 tab(s), Oral, TID, PRN albuterol MDI (90 mcg/inh) CFC free inhalation aerosol, 2 puff(s), Inhalation, QID, PRN aspirin 81 mg oral delayed release tablet, 81 mg= 1 tab(s), Oral, BID chlorthalidone 25 mg oral tablet losartan 100 mg oral tablet Mobic 7.5 mg oral tablet, 7.5 mg= 1 tab(s), Oral, BIDM omeprazole 20 mg oral delayed release capsule, 20 mg= 1 cap(s), Oral, qDay oxyCODONE 5 mg oral tablet ( IMMEDIATE release ), See Instructions, PRN Senokot S 50 mg-8.6 mg oral tablet, 2 tab(s), Oral, BID tamsulosin 0.4 mg oral capsule Vitamin D3, 25 mcg= 1 tab(s), Oral, Daily Allergies No Known Medication Allergies Social History Alcohol Use: Current. Type: Beer. Frequency: 3-5 times per week., 02/13/2022 Home/Environment Lives In: Multilevel home., 02/25/2022 Domestic Concerns: None. Living situation: Home/Independent., 02/13/2022 Substance Abuse Use: Never., 02/13/2022 Tobacco Nicotine Use: Never (less than 100 in lifetime)., 02/13/2022 Family History Cancer: Father. Osteoarthritis: Sister and Brother. Immunizations SARS-CoV-2 (COVID-19) mRNA-1273 vaccine: 0 unknown unit (05/11/20) SARS-CoV-2 (COVID-19) mRNA-1273 vaccine: 0 unknown unit (04/13/20) SARS-CoV-2 mRNA (tozinameran) vaccine: 0.3 unknown unit (12/18/20) yellow fever vaccine: 0 unknown unit (05/28/10) zoster vaccine, inactivated: 1 unknown unit (06/28/20) zoster vaccine, inactivated: 1 unknown unit (10/28/19) Digitally Signed by NICOLETTE ZAPIEN on 02/26/2022 01:42 PM [facility] 02-26-2022 Note Discharge Instructions Thank you for allowing [facility] to assist you with your healthcare needs. The following is important discharge information regarding your hospital visit. Your Care Team AKIRA GREEN MD, STEVEN MD KENNEN, RACHEL APRN-CNP Your Diagnosis Osteoarthritis S/P total knee arthroplasty HTN (hypertension) Status post total right knee replacement What to do next Follow Up Appointments Follow Up with VANGIE MACHADO PA-C, Orthopedic When 03/10/2022 03:00 PM EST Why: This is your post-op appointment . Follow-up as scheduled Where: [facility] [address] [place] [id number]- Follow Up with [facility] Physical Therapy When 02/28/2022 01:30 PM EST Why: This is your first physical therapy appointment. Follow-up as scheduled. Where: [address] [place] [phone] Allergies No Known Medication Allergies Medications Please ask your primary doctor or pharmacist before taking any other medication not listed, including over the counter drugs, herbal medications, vitamins and or supplements as they may interact with your home medications. What How Much When Why Instructions Last Dose New acetaminophen (acetaminophen 500 mg oral tablet) 2 tab(s) by mouth Three (3) times a day as needed for as needed for pain not to exceed 3000 mg/ day Pickup at [facility] #[id number] 02/26 12PM New aspirin (aspirin 81 mg oral delayed release tablet) 1 tab(s) by mouth Two (2) times a day Duration: 30 Days Take 81 mg aspirin twice daily with food for 4 weeks postoperatively for DVT prophylaxis. Pickup at [facility] #[id number] 02/26 9AM New docusate-senna (Senokot S 50 mg-8.6 mg oral tablet) 2 tab(s) by mouth Two (2) times a day Duration: 3 Days Take until first bowel movement, then as needed Pickup at [facility] #[id number] 02/26 9AM New meloxicam (Mobic 7.5 mg oral tablet) 1 tab(s) by mouth Twice daily with meals Do not take any other nonsteroidal anti-inflammatories while on meloxicam/ Mobic Pickup at [facility] #[id number] Start tomorrow New oxyCODONE (oxyCODONE 5 mg oral tablet ( IMMEDIATE release )) See instructions Status post total right knee replacement 1-2 tab(s) Oral q4h Pickup at [facility] #[id number] 02/26 9AM Unchanged albuterol (albuterol MDI (90 mcg/ inh) CFC free inhalation aerosol) 2 puff(s) by inhalation Four (4) times a day as needed for as needed for wheezing None Unchanged chlorthalidone (chlorthalidone 25 mg oral tablet) take 1 tablet by mouth once daily None Unchanged cholecalciferol (Vitamin D3) 25 Microgram by mouth Every day None Unchanged losartan (losartan 100 mg oral tablet) take 1 tablet by mouth once daily 02/26 9AM Unchanged omeprazole (omeprazole 20 mg oral delayed release capsule) 1 cap by mouth Once a day None Unchanged tamsulosin (tamsulosin 0.4 mg oral capsule) take 1 capsule by mouth twice a day 02/26 9AM Pharmacy Information [facility] #[id number]: [address] [place], [place] [phone] Please take this list to your next doctor s visit. Bring all medications you take, including over the counter medications, herbals and other supplements with you to your doctor s visit. Patients and families are reminded to discard old lists and to update any records with all medication providers or retail pharmacies. Medication Leaflets aspirin (oral) ( pir in) Arthritis Pain, Aspi-Cor, Aspir-Low, Elisa Plus, Durlaza, Ecotrin, Miniprin, Vazalore What is the most important information I should know about aspirin? Aspirin can cause Aniceto's syndrome, a serious and sometimes fatal condition in children. What is aspirin? Aspirin is a salicylate (cc-FDJ-ei-ate) that is used to treat pain, and reduce fever or inflammation. Aspirin is sometimes used to treat or prevent heart attacks, strokes, and chest pain (angina). Aspirin should be used for these conditions only under the supervision of a doctor. Aspirin may also be used for purposes not listed in this medication guide. What should I discuss with my healthcare provider before taking aspirin? Using aspirin in a child or teenager with flu symptoms or chickenpox can cause a serious or fatal condition called Aniceto's syndrome. You should not use aspirin if you are allergic to it, or if you have: a recent history of stomach or intestinal bleeding; a bleeding disorder such as hemophilia; or if you have ever had an asthma attack or severe allergic reaction after taking aspirin or an NSAID (non-steroidal anti-inflammatory drug). Tell your doctor if you have ever had: asthma or seasonal allergies; stomach ulcers; liver disease; kidney disease; a bleeding or blood clotting disorder; gout; or heart disease, high blood pressure, or congestive heart failure. Taking aspirin during late may cause bleeding in the mother or the baby during delivery. Tell your doctor if you are or plan to become . You should not breastfeed while using this medicine. How should I take aspirin? Use exactly as directed on the label, or as prescribed by your doctor. Always follow directions on the medicine label about giving aspirin to a child. Take with food if aspirin upsets your stomach. You must chew the chewable tablet before you swallow it. Do not crush, chew, break, or open an enteric-coated or delayed/extended-release pill. Swallow it whole. Tell your doctor if you have a planned surgery. Store at room temperature away from moisture and heat. Do not use aspirin if you smell a strong vinegar odor in the aspirin bottle. The medicine may no longer be effective. What happens if I miss a dose? Aspirin is used when needed. If you are on a dosing schedule, skip any missed dose. Do not use two doses at one time. What happens if I overdose? Seek emergency medical attention or call the Poison Help line at . Overdose may cause stomach pain, vomiting, diarrhea, vision or hearing problems, fast or slow breathing, or confusion. What should I avoid while taking aspirin? Avoid alcohol. Heavy drinking can increase your risk of stomach bleeding. Avoid taking ibuprofen if you take aspirin to prevent stroke or heart attack. Ibuprofen can make aspirin less effective in protecting your heart and blood vessels. Ask your doctor how far apart your doses should be. Ask a doctor or pharmacist before using other medicines for pain, fever, swelling, or cold/flu symptoms. They may contain ingredients similar to aspirin (such as magnesium salicylate, ibuprofen, ketoprofen, or naproxen). What are the possible side effects of aspirin? Get emergency medical help if you have signs of an allergic reaction: hives; difficult breathing; swelling of your face, lips, tongue, or throat. Stop using aspirin and call your doctor at once if you have: ringing in your ears, confusion, hallucinations, rapid breathing, seizure (convulsions); severe nausea, vomiting, or stomach pain; bloody or tarry stools, coughing up blood or vomit that looks like coffee grounds; fever lasting longer than 3 days; or swelling, or pain lasting longer than 10 days. Common side effects may include: upset stomach, heartburn; drowsiness; or mild headache. This is not a complete list of side effects and others may occur. Call your doctor for medical advice about side effects. You may report side effects to FDA at 8-412-GBV-8451. What other drugs will affect aspirin? Ask your doctor before using aspirin if you take an antidepressant. Taking certain antidepressants with aspirin may cause you to bruise or bleed easily. Ask a doctor or pharmacist before using aspirin with any other medications, especially: a blood thinner (warfarin, Coumadin, Jantoven), or other medication used to prevent blood clots; or other salicylates such as Nuprin Backache Caplet, Kaopectate, KneeRelief, Pamprin Cramp Formula, Pepto-Bismol, Tricosal, Trilisate, and others. This list is not complete. Other drugs may affect aspirin, including prescription and kjdq-pwu-ndehmal medicines, vitamins, and herbal products. Not all possible drug interactions are listed here. Where can I get more information? Your pharmacist can provide more information about aspirin. Remember, keep this and all other medicines out of the reach of children, never share your medicines with others, and use this medication only for the indication prescribed. Every effort has been made to ensure that the information provided by [employer]. [employer] is accurate, up-to-date, and complete, but no guarantee is made to that effect. Drug information contained herein may be time sensitive. [employer] information has been compiled for use by healthcare practitioners and consumers in the [place] and therefore [employer] does not warrant that uses outside of the [place] are appropriate, unless specifically indicated otherwise. [employer] drug information does not endorse drugs, diagnose patients or recommend therapy. [employer] drug information is an informational resource designed to assist licensed healthcare practitioners in caring for their patients and/or to serve consumers viewing this service as a supplement to, and not a substitute for, the expertise, skill, knowledge and judgment of healthcare practitioners. The absence of a warning for a given drug or drug combination in no way should be construed to indicate that the drug or drug combination is safe, effective or appropriate for any given patient. [employer] does not assume any responsibility for any aspect of healthcare administered with the aid of information [employer] provides. The information contained herein is not intended to cover all possible uses, directions, precautions, warnings, drug interactions, allergic reactions, or adverse effects. If you have questions about the drugs you are taking, check with your doctor, nurse or pharmacist. Copyright 4412-5868 [employer]. Version: 16.03. Revision Date: 08/13/2020. [place] (ADELA cordero and SEN a) Colace 2-in-1, Dok Plus, Julita-Colace, Senexon-S, Senna Plus, Senna S, Senna-Time S, Senokot S, SenoSol-SS, Stool Softener with Laxative What is the most important information I should know about docusate and senna? Use exactly as directed on the label, or as prescribed by your doctor. What is docusate and senna? Docusate is a stool softener. Senna is a laxative. Docusate and senna is a combination medicine used to treat occasional constipation. Docusate and senna may also be used for purposes not listed in this medication guide. What should I discuss with my healthcare provider before using docusate and senna? You should not use this medicine if you are allergic to docusate or senna, or if you are also taking mineral oil. Ask a doctor or pharmacist if this medicine is safe to use if you have ever had: nausea or vomiting; stomach pain; a sudden change in bowel habits that lasts for 2 weeks or longer; or an intestinal disorder such as Crohn's disease or ulcerative colitis. Ask a doctor before using this medicine if you are or . Do not give this medicine to a child younger than 2 years old without medical advice. How should I use docusate and senna? Use exactly as directed on the label, or as prescribed by your doctor. Take docusate and senna with a full glass of water. It may be best to take this medicine at night or at bedtime. Docusate and senna should cause you to have a bowel movement within 6 to 12 hours. Do not take docusate and senna for longer than 7 days in a row, unless your doctor tells you to. Call your doctor if your constipation does not improve or if it gets worse after taking docusate and senna. Store at room temperature away from moisture and heat. What happens if I miss a dose? Since docusate and senna is used when needed, you may not be on a dosing schedule. Skip any missed dose if it's almost time for your next dose. Do not use two doses at one time. What happens if I overdose? Seek emergency medical attention or call the Poison Help line at . Overdose symptoms may include nausea, vomiting, stomach pain, or diarrhea. What should I avoid while using docusate and senna? Ask a doctor or pharmacist before using any other laxative or other stool softener that may contain ingredients similar to docusate or senna. What are the possible side effects of docusate and senna? Get emergency medical help if you have signs of an allergic reaction: hives; difficulty breathing; swelling of your face, lips, tongue, or throat. Stop using docusate and senna and call your doctor at once if you have: rectal bleeding; severe stomach pain, nausea, vomiting; or no bowel movement. Common side effects may include: gas, bloating; diarrhea; or mild nausea. This is not a complete list of side effects and others may occur. Call your doctor for medical advice about side effects. You may report side effects to FDA at 7-673-XBK-0864. What other drugs will affect docusate and senna? Other drugs may affect docusate and senna, including prescription and cwyi-njc-kaoztio medicines, vitamins, and herbal products. Tell your doctor about all your current medicines and any medicine you start or stop using. Where can I get more information? Your pharmacist can provide more information about docusate and senna. Remember, keep this and all other medicines out of the reach of children, never share your medicines with others, and use this medication only for the indication prescribed. Every effort has been made to ensure that the information provided by [employer] is accurate, up-to-date, and complete, but no guarantee is made to that effect. Drug information contained herein may be time sensitive. [employer] information has been compiled for use by healthcare practitioners and consumers in the [place] and therefore [employer] does not warrant that uses outside of the [place] are appropriate, unless specifically indicated otherwise. [employer] drug information does not endorse drugs, diagnose patients or recommend therapy. [employer] drug information is an informational resource designed to assist licensed healthcare practitioners in caring for their patients and/or to serve consumers viewing this service as a supplement to, and not a substitute for, the expertise, skill, knowledge and judgment of healthcare practitioners. The absence of a warning for a given drug or drug combination in no way should be construed to indicate that the drug or drug combination is safe, effective or appropriate for any given patient. [facility] does not assume any responsibility for any aspect of healthcare administered with the aid of information [facility] provides. The information contained herein is not intended to cover all possible uses, directions, precautions, warnings, drug interactions, allergic reactions, or adverse effects. If you have questions about the drugs you are taking, check with your doctor, nurse or pharmacist. Copyright 5421-3988 [facility]. Version: 3.02. Revision Date: 05/02/2020. meloxicam (oral/injection) (deangelo OKS i otis) Anjeso, Mobic, Qmiiz ODT, Vivlodex What is the most important information I should know about meloxicam? Meloxicam can increase your risk of fatal heart attack or stroke. Do not use this medicine just before or after heart bypass surgery (coronary artery bypass graft, or CABG). Meloxicam may also cause stomach or intestinal bleeding, which can be fatal. What is meloxicam? Meloxicam is a nonsteroidal anti-inflammatory drug (NSAID) that is used to treat osteoarthritis or rheumatoid arthritis in adults. Meloxicam is also used to treat juvenile rheumatoid arthritis in children who are at least 2 years old. The Anjeso brand of meloxicam is used to treat moderate to severe pain in adults. Vivlodex is for use only in adults. Qmiiz is for adults and children weighing at least 132 pounds (60 kilograms). Meloxicam may also be used for purposes not listed in this medication guide. What should I discuss with my healthcare provider before taking meloxicam? Meloxicam can increase your risk of fatal heart attack or stroke, even if you don't have any risk factors. Do not use this medicine just before or after heart bypass surgery (coronary artery bypass graft, or CABG). Meloxicam may also cause stomach or intestinal bleeding, which can be fatal. These conditions can occur without warning while you are using meloxicam, especially in older adults. You should not use meloxicam if you are allergic to it, or if you have ever had an asthma attack or severe allergic reaction after taking aspirin or an NSAID. You should not take meloxicam disintegrating tablets (Qmiiz ODT) if you have phenylketonuria (PKU). This form of meloxicam contains phenylalanine. Tell your doctor if you have ever had: heart disease, high blood pressure, high cholesterol, diabetes, or if you smoke; a heart attack, stroke, or blood clot; ulcers or bleeding in your stomach; asthma; kidney disease (or if you are on dialysis); liver disease; or fluid retention. If you are , you should not take meloxicam unless your doctor tells you to. Taking an NSAID during the last 20 weeks of can cause serious heart or kidney problems in the unborn baby and possible complications with your . Meloxicam may cause a delay in ovulation (the release of an egg from an ovary). You should not take meloxicam if you are undergoing fertility treatment, or are otherwise trying to get . It may not be safe to breastfeed while using this medicine. Ask your doctor about any risk. Meloxicam is not approved for use by anyone younger than 2 years old. How should I take meloxicam? Follow all directions on your prescription label and read all medication guides. Use the lowest dose that is effective in treating your condition. Meloxicam oral is taken by mouth. Meloxicam injection is given as an infusion into a vein. A healthcare provider will give you this injection. You may take meloxicam oral with or without food. Remove an orally disintegrating tablet from the package only when you are ready to take the medicine. Place the tablet in your mouth and allow it to dissolve, without chewing. Swallow several times as the tablet dissolves. Your dose needs may change if you switch to a different brand, strength, or form of this medicine. Avoid medication errors by using only the form and strength your doctor prescribes. Meloxicam doses are based on weight (especially in children and teenagers). Your dose needs may change if you gain or lose weight. If you use this medicine long-term, you may need frequent medical tests. Store meloxicam tablets or capsules at room temperature, away from moisture and heat. Keep the bottle tightly closed when not in use. What happens if I miss a dose? Take the medicine as soon as you can, but skip the missed dose if it is almost time for your next dose. Do not take two doses at one time. What happens if I overdose? Seek emergency medical attention or call the Poison Help line at . What should I avoid while taking meloxicam? Avoid alcohol. Heavy drinking can increase your risk of stomach bleeding. Avoid taking aspirin while you are taking meloxicam, unless your doctor tells you to. Ask a doctor or pharmacist before using other medicines for pain, fever, swelling, or cold/flu symptoms. They may contain ingredients similar to meloxicam (such as aspirin, ibuprofen, ketoprofen, or naproxen). What are the possible side effects of meloxicam? Get emergency medical help if you have signs of an allergic reaction (hives, difficult breathing, swelling in your face or throat) or a severe skin reaction (fever, sore throat, burning eyes, skin pain, red or purple skin rash with blistering and peeling). Get emergency medical help if you have signs of a heart attack or stroke: chest pain spreading to your jaw or shoulder, sudden numbness or weakness on one side of the body, slurred speech, leg swelling, feeling short of breath. Stop using meloxicam and call your doctor at once if you have: the first sign of any skin rash, no matter how mild; shortness of breath (even with mild exertion); swelling or rapid weight gain; signs of stomach bleeding--bloody or tarry stools, coughing up blood or vomit that looks like coffee grounds; liver problems--nausea, upper stomach pain, itching, tired feeling, flu-like symptoms, loss of appetite, dark urine, adrianna-colored stools, jaundice (yellowing of the skin or eyes); low red blood cells (anemia)--pale skin, unusual tiredness, feeling light-headed, cold hands and feet; or kidney problems--little or no urination, swelling in your feet or ankles, feeling tired or short of breath. Common side effects may include: stomach pain, nausea, vomiting, heartburn; diarrhea, constipation, gas; dizziness; or cold symptoms, flu symptoms. This is not a complete list of side effects and others may occur. Call your doctor for medical advice about side effects. You may report side effects to FDA at 7-980-CZK-5506. What other drugs will affect meloxicam? Ask your doctor before using meloxicam if you take an antidepressant. Taking certain antidepressants with an NSAID may cause you to bruise or bleed easily. Tell your doctor about all your other medicines, especially: cyclosporine; lithium; methotrexate; pemetrexed; sodium polystyrene sulfonate (Kayexalate); a blood thinner (warfarin, Coumadin, Jantoven); heart or blood pressure medication, including a diuretic or 'water pill'; or steroid medicine (such as prednisone). This list is not complete. Other drugs may affect meloxicam, including prescription and alap-hrr-dkwloia medicines, vitamins, and herbal products. Not all possible drug interactions are listed here. Where can I get more information? Your pharmacist can provide more information about meloxicam. Remember, keep this and all other medicines out of the reach of children, never share your medicines with others, and use this medication only for the indication prescribed. Every effort has been made to ensure that the information provided by [employer]') is accurate, up-to-date, and complete, but no guarantee is made to that effect. Drug information contained herein may be time sensitive. [employer] information has been compiled for use by healthcare practitioners and consumers in the [place] and therefore [employer] does not warrant that uses outside of the [place] are appropriate, unless specifically indicated otherwise. [employer] drug information does not endorse drugs, diagnose patients or recommend therapy. [employer] drug information is an informational resource designed to assist licensed healthcare practitioners in caring for their patients and/or to serve consumers viewing this service as a supplement to, and not a substitute for, the expertise, skill, knowledge and judgment of healthcare practitioners. The absence of a warning for a given drug or drug combination in no way should be construed to indicate that the drug or drug combination is safe, effective or appropriate for any given patient. [employer] does not assume any responsibility for any aspect of healthcare administered with the aid of information [employer] provides. The information contained herein is not intended to cover all possible uses, directions, precautions, warnings, drug interactions, allergic reactions, or adverse effects. If you have questions about the drugs you are taking, check with your doctor, nurse or pharmacist. Copyright 9685-7294 [employer]. Version: 14.. Revision Date: 12/20/2019. oxycodone (ox i KOE done) Oxaydo, OxyCONTIN, Oxyfast, OxyIR, Roxicodone, Xtampza ER What is the most important information I should know about oxycodone? MISUSE OF OPIOID MEDICINE CAN CAUSE ADDICTION, OVERDOSE, OR . Keep the medication in a place where others cannot get to it. Taking opioid medicine during may cause life-threatening withdrawal symptoms in the . Fatal side effects can occur if you use opioid medicine with alcohol, or with other drugs that cause drowsiness or slow your breathing. What is oxycodone? Oxycodone is an opioid pain medication used to treat moderate to severe pain. The extended-release form of oxycodone is for nrzhxs-tqj-tcard treatment of pain and should not be used on an as-needed basis for pain. Oxycodone may also be used for purposes not listed in this medication guide. What should I discuss with my healthcare provider before using oxycodone? You should not use oxycodone if you are allergic to it, or if you have: severe asthma or breathing problems; or a blockage in your stomach or intestines. You should not use oxycodone unless you are already using a similar opioid medicine and are tolerant to it. Most brands of oxycodone are not approved for use in people under 18. OxyContin should not be given to a child younger than 11 years old. Tell your doctor if you have ever had: breathing problems, sleep apnea; a head injury, or seizures; drug or alcohol addiction, or mental illness; liver or kidney disease; urination problems; or problems with your gallbladder, pancreas, or thyroid. If you use opioid medicine while you are , your baby could become dependent on the drug. This can cause life-threatening withdrawal symptoms in the baby after it is born. Babies born dependent on opioids may need medical treatment for several weeks. Ask a doctor before using opioid medicine if you are . Tell your doctor if you notice severe drowsiness or slow breathing in the nursing baby. How should I use oxycodone? Follow the directions on your prescription label and read all medication guides. Never use oxycodone in larger amounts, or for longer than prescribed. Tell your doctor if you feel an increased urge to take more of this medicine. Never share opioid medicine with another person, especially someone with a history of drug abuse or addiction. MISUSE CAN CAUSE ADDICTION, OVERDOSE, OR . Keep the medication in a place where others cannot get to it. Selling or giving away opioid medicine is against the law. Stop taking all other xocjlj-cxl-xnmul opioid pain medicines when you start taking extended-release oxycodone. Take oxycodone with food. Swallow the capsule or tablet whole to avoid exposure to a potentially fatal overdose. Do not crush, chew, break, open, or dissolve. If you cannot swallow a capsule whole, open it and sprinkle the medicine into a spoonful of pudding or applesauce. Swallow the mixture right away without chewing. Do not save it for later use. Never crush or break an oxycodone pill to inhale the powder or mix it into a liquid to inject the drug into your vein. This can cause in . Measure liquid medicine carefully. Use the dosing syringe provided, or use a medicine dose-measuring device (not a kitchen spoon). You should not stop using oxycodone suddenly. Follow your doctor's instructions about tapering your dose. Store at room temperature, away from heat, moisture, and light. Keep track of your medicine. Oxycodone is a drug of abuse and you should be aware if anyone is using your medicine improperly or without a prescription. Do not keep leftover opioid medication. Just one dose can cause in someone using this medicine accidentally or improperly. Ask your pharmacist where to locate a drug take-back disposal program. If there is no take-back program, flush the unused medicine down the toilet. What happens if I miss a dose? Since oxycodone is used for pain, you are not likely to miss a dose. Skip any missed dose if it is almost time for your next dose. Do not use two doses at one time. What happens if I overdose? Seek emergency medical attention or call the Poison Help line at . An opioid overdose can be fatal, especially in a child or other person using the medicine without a prescription. Overdose symptoms may include severe drowsiness, pinpoint pupils, slow breathing, or no breathing. Your doctor may recommend you get naloxone (a medicine to reverse an opioid overdose) and keep it with you at all times. A person caring for you can give the naloxone if you stop breathing or don't wake up. Your caregiver must still get emergency medical help and may need to perform CPR (cardiopulmonary resuscitation) on you while waiting for help to arrive. Anyone can buy naloxone from a pharmacy or local health department. Make sure any person caring for you knows where you keep naloxone and how to use it. What should I avoid while using oxycodone? Do not drink alcohol. Dangerous side effects or could occur. Avoid driving or operating machinery until you know how oxycodone will affect you. Dizziness or severe drowsiness can cause falls or other accidents. Avoid medication errors. Always check the brand and strength of oxycodone you get from the pharmacy. What are the possible side effects of oxycodone? Get emergency medical help if you have signs of an allergic reaction: hives; difficult breathing; swelling of your face, lips, tongue, or throat. Opioid medicine can slow or stop your breathing, and may occur. A person caring for you should give naloxone and/or seek emergency medical attention if you have slow breathing with long pauses, blue colored lips, or if you are hard to wake up. Call your doctor at once if you have: noisy breathing, sighing, shallow breathing, breathing that stops during sleep; a slow heart rate or weak pulse; a light-headed feeling, like you might pass out; confusion, unusual thoughts or behavior; seizure (convulsions); low cortisol levels-- nausea, vomiting, loss of appetite, dizziness, worsening tiredness or weakness; or high levels of serotonin in the body--agitation, hallucinations, fever, sweating, shivering, fast heart rate, muscle stiffness, twitching, loss of coordination, nausea, vomiting, diarrhea. Serious breathing problems may be more likely in older adults and in those who are debilitated or have wasting syndrome or chronic breathing disorders. Common side effects may include: drowsiness, headache, dizziness, tiredness; or constipation, stomach pain, nausea, vomiting. This is not a complete list of side effects and others may occur. Call your doctor for medical advice about side effects. You may report side effects to FDA at 7-548-GXT-0777. What other drugs will affect oxycodone? You may have breathing problems or withdrawal symptoms if you start or stop taking certain other medicines. Tell your doctor if you also use an antibiotic, antifungal medication, heart or blood pressure medication, seizure medication, or medicine to treat HIV or hepatitis C. Opioid medication can interact with many other drugs and cause dangerous side effects or . Be sure your doctor knows if you also use: cold or allergy medicines, bronchodilator asthma/COPD medication, or a diuretic ('water pill'); medicines for motion sickness, irritable bowel syndrome, or overactive bladder; other opioids--opioid pain medicine or prescription cough medicine; a sedative like Valium--diazepam, alprazolam, lorazepam, Xanax, Klonopin, Versed, and others; drugs that make you sleepy or slow your breathing--a sleeping pill, muscle relaxer, medicine to treat mood disorders or mental illness; or drugs that affect serotonin levels in your body--a stimulant, or medicine for depression, Parkinson's disease, migraine headaches, serious infections, or nausea and vomiting. This list is not complete and many other drugs may affect oxycodone. This includes prescription and mqbu-iom-gjfvata medicines, vitamins, and herbal products. Not all possible drug interactions are listed here. Where can I get more information? Your pharmacist can provide more information about oxycodone. Remember, keep this and all other medicines out of the reach of children, never share your medicines with others, and use this medication only for the indication prescribed. Every effort has been made to ensure that the information provided by [employer] is accurate, up-to-date, and complete, but no guarantee is made to that effect. Drug information contained herein may be time sensitive. [employer] information has been compiled for use by healthcare practitioners and consumers in the [place] and therefore [employer] does not warrant that uses outside of the [place] are appropriate, unless specifically indicated otherwise. [employer]'s drug information does not endorse drugs, diagnose patients or recommend therapy. [employer] drug information is an informational resource designed to assist licensed healthcare practitioners in caring for their patients and/or to serve consumers viewing this service as a supplement to, and not a substitute for, the expertise, skill, knowledge and judgment of healthcare practitioners. The absence of a warning for a given drug or drug combination in no way should be construed to indicate that the drug or drug combination is safe, effective or appropriate for any given patient. [employer] does not assume any responsibility for any aspect of healthcare administered with the aid of information [employer] provides. The information contained herein is not intended to cover all possible uses, directions, precautions, warnings, drug interactions, allergic reactions, or adverse effects. If you have questions about the drugs you are taking, check with your doctor, nurse or pharmacist. Copyright 9923-7750 [employer]. Version: 14.02. Revision Date: 03/15/2020. acetaminophen (oral) (a SEET a MIN oh fen) Actamin, Anacin AF, Aurophen, Bromo [place], Children's Tylenol, Mapap, M-Pap, Pharbetol, Silapap Childrens, Tactinal, Tempra Quicklets, Tycolene, Tylenol, Vitapap What is the most important information I should know about acetaminophen? An overdose of acetaminophen can damage your liver or cause . Call your doctor at once if you have upper stomach pain, loss of appetite, dark urine, or jaundice (yellowing of your skin or eyes). Stop taking this medicine and get medical help if you have skin redness or a blistering rash. What is acetaminophen? Acetaminophen is used to reduce fever and relieve minor pain caused by conditions such as colds or flu, headache, muscle aches, arthritis, and menstrual cramps. Acetaminophen may also be used for purposes not listed in this medication guide. What should I discuss with my healthcare provider before taking acetaminophen? You should not take acetaminophen if you are allergic to it, or if you take other medications that contain acetaminophen. Ask a doctor or pharmacist if this medicine is safe to use if you've ever had cirrhosis of the liver, or if you drink alcohol daily. Ask a doctor before using this medicine if you are or . How should I take acetaminophen? Use exactly as directed on the label, or as prescribed by your doctor. An acetaminophen overdose can damage your liver or cause . Adults and teenagers at least 12 years old: Do not take more than 1000 milligrams (mg) at one time or more than 4000 mg in 24 hours. Children younger than 12 years old: Do not take more than 5 doses of children's formula acetaminophen in 24 hours. Do not give extra-strength acetaminophen to a child younger than 12 years old without medical advice. A child's dose is based on age and weight. Carefully follow the dosing instructions provided with this medicine. Ask a doctor before giving this medicine to a child younger than 2 years. Acetaminophen made for infants comes with its own medicine dropper or oral syringe. Measuring with the wrong device may cause an overdose. Use only the provided dosing device provided to measure an 's dose. Acetaminophen comes in many different forms such as capsules, liquid, chewable or disintegrating tablets, and dissolving powders or granules. Read and carefully follow any Instructions for Use provided with your medicine. Ask your doctor or pharmacist if you need help. Stop taking acetaminophen and call your doctor if: you still have a sore throat after 2 days of use; you still have a fever after 3 days of use; you still have pain after 7 days of use (or 5 days if treating a child); you have a skin rash, ongoing headache, nausea, vomiting, redness or swelling; or your symptoms get worse, or if you have any new symptoms. Taking acetaminophen may cause false results with certain blood glucose monitors. If you have diabetes, ask your doctor about the best way to monitor your blood sugar levels while using acetaminophen. Store at room temperature away from heat and moisture. What happens if I miss a dose? Acetaminophen is used when needed. If you are on a dosing schedule, skip any missed dose. Do not use two doses at one time. What happens if I overdose? Seek emergency medical attention or call the Poison Help line at . An overdose can be fatal. Overdose symptoms include vomiting, stomach pain, and yellowing of your skin or eyes. What should I avoid while taking acetaminophen? Avoid using other medicines that may contain acetaminophen. Avoid drinking alcohol. What are the possible side effects of acetaminophen? Get emergency medical help if you have signs of an allergic reaction: hives; difficulty breathing; swelling of your face, lips, tongue, or throat. In rare cases, acetaminophen may cause a severe skin reaction that can be fatal, even if you took acetaminophen in the past and had no reaction. Stop taking this medicine and call your doctor right away if you have skin redness or a rash that spreads and causes blistering and peeling. Stop taking acetaminophen and call your doctor at once if you have signs of liver problems: stomach pain (upper right side); loss of appetite; tiredness, itching; dark urine, adrianna-colored stools; or jaundice (yellowing of the skin or eyes). Less serious side effects may be more likely, and you may have none at all. This is not a complete list of side effects and others may occur. Call your doctor for medical advice about side effects. You may report side effects to FDA at 0-689-JEI-7612. What other drugs will affect acetaminophen? Other drugs may affect acetaminophen, including prescription and urnc-wtg-ciuqegg medicines, vitamins, and herbal products. Tell your doctor about all other medicines you use. Where can I get more information? Your pharmacist can provide more information about acetaminophen. Remember, keep this and all other medicines out of the reach of children, never share your medicines with others, and use this medication only for the indication prescribed. Every effort has been made to ensure that the information provided by [employer] is accurate, up-to-date, and complete, b (more content not included)... [facility] 02-26-2022 Hospital Discharg e instructions Patient Education 02/26/2022 07:05:35 5 - [facility] Post-op Instruction 09/2016 ([id number]) [facility] Post-operative Instructions PLEASE FOLLOW [facility] POST-OP INSTRUCTIONS GIVEN WATCH FOR SIGNS OF INFECTION: call the office ([phone]) if experencing any of the following: (Usually appears 36-48 hours after surgery) Increased temperature (101 degrees Fahrenheit or higher) Redness or swelling Increased uncontrolled pain Foul odor or drainage Calf discomfort Significant swelling Or if having any chest pain, shortness of breath, or difficulty breathing or swallowing call the office or go the nearest Emergency Room. If you have any questions, please call your doctor at the number listed on your follow up instructions. Form: 338A ([id number]) R: 06/22 Follow Up Care 11/25/2021 14:14:33 With:[facility] Address: [address] [place] [phone] When:02/28/2022 13:30:00 Comments:This is your first physical therapy appointment. Follow-up as scheduled. With:VANGIE MACHADO PA-C, Orthopedic Address: [facility] [address] [place] [phone] When:03/10/2022 15:00:00 Comments:This is your post-op appointment . Follow-up as scheduled [facility] 02-26-2022 Note Date of Service February 26, 2022 Subjective The patient was sitting in bed upon examination. Patient denies any chest pain, shortness of breath, dizziness, lightheadedness, nausea or vomiting, or calf pain. No adverse overnight events. Pain has been controlled on medications. Patient overall is doing well and the pain is well controlled. He does have underlying history of benign prostatic hyperplasia and he has urinated on his own postoperatively already. Objective Vitals and Measurements T: 36.9 C (Oral) TMIN: 35.9 C (Temporal Artery) TMAX: 36.9 C (Oral) HR: 62(Monitored) RR: 18 BP: 121/72 SpO2: 94% HT: 190.5 cm WT: 113.6 kg BMI: 31.3 Intake and Output 7AM Yesterday to 7AM Today Intake and Output (Last 24 hours) Intake Administration Information 1800.00 Oral Intake 2016.00 Output Intra-Op EBL 75.00 Total Summary Total Intake 3816.00 Total Output 75.00 Fluid Balance 3741.00 Physical Exam Vital signs stable, afebrile SCDs and TAMMY hose are in place bilaterally Patient is able to plantarflex and dorsiflex actively Sensation is intact to saphenous, sural, superficial and deep peroneal, and tibial distribution Proximal pin site dressing and Mepilex dressing is clean dry and intact. There is drainage over the distal pin site. Negative signs and symptoms of DVT, negative Homans bilaterally Weight Dosing Weight: 113.6 kg (02/25/22) Dosing Weight: 113.6 kg (02/25/22) Medications Medications (21) Active Scheduled: (11) acetaminophen 500 mg Tablet 1,000 mg 2 tab(s), Oral, q6hr aspirin 81 mg Chewable 81 mg 1 tab(s), Oral, BIDM bisacodyl 5 mg EC tablet 10 mg 2 tab(s), Oral, Once docusate sodium 100 mg Capsule 100 mg 1 cap(s), Oral, BID docusate-senna (Senokot S) 50 mg-8.6 mg Tablet 2 tab(s), Oral, BID famotidine 20 mg tablet 20 mg 1 tab(s), Oral, qDay magnesium hydroxide 8% Suspension 30 mL UD 30 mL, Oral, Daily meloxicam 7.5 mg tablet 7.5 mg 1 tab(s), Oral, BIDM ondansetron 2 mg/ 1 mL 2 mL INJ 4 mg 2 mL, IV Push, q8h tamsulosin 0.4 mg Capsule 0.4 mg 1 cap(s), Oral, BID Vitamin B Complex with C tablet 1 tab(s), Oral, qDayM Continuous: (0) PRN: (10) acetaminophen 325 mg Tablet 650 mg 2 tab(s), Oral, q4h diphenhydramine 25 mg tablet 25 mg 1 tab(s), Oral, q6h diphenhyDRAMINE 50 mg/mL (1 mL) INJ 25 mg 0.5 mL, IV Push, q6h ketorolac 30 mg/mL (1 mL) vial 15 mg 0.5 mL, IV Push, q6h morphine 2 mg/mL 1 mL syringe 2 mg 1 mL, IV Push, q1h ondansetron 2 mg/ 1 mL 2 mL INJ 4 mg 2 mL, IV Push, q8h oxycodone 5 mg tablet (immediate release) 5 mg 1 tab(s), Oral, q4h oxycodone 5 mg tablet (immediate release) 10 mg 2 tab(s), Oral, q4h prochlorperazine 10 mg/2 mL vial 5 mg 1 mL, IV Push, q6h sodium biphosphate-sodium phosphate 19 gm-7 gm Enema 133 mL, Rectal, qDay Lab Results 02/26 05:28 WBC: 15.3 H Hgb: 11.9 L Hct: 33.9 L Platelet: 212 Neutrophil %: 89.4 H Glucose Level: 128 H Sodium Level: 137 Potassium Level: 4.6 BUN: 25 H Creatinine Lvl (s): 1.29 EKG No qualifying data available. Assessment/Plan 1. Osteoarthritis 2. S/P total knee arthroplasty 1. Status post right total knee arthroplasty postop day #1 2. Continue pain medications: Tylenol, meloxicam, oxycodone. Do not take any other nonsteroidal anti-inflammatories while on meloxicam/Mobic 3. DVT prophylaxis: Take 81 mg aspirin twice daily with food for 4 weeks postoperatively for DVT prophylaxis. Patient denies previous history of DVT or pulmonary embolism 4. Physical therapy: Weightbearing as tolerated with walker 5. H & H: 11.9/33.9, asymptomatic. Postoperative anemia secondary to acute blood loss from surgery without intraoperative complications. 6. Reactive leukocytosis: Currently 15.3, afebrile. Patient did receive Decadron intraoperatively 7. Encouraged incentive spirometry 8. Continue postoperative medical management per medicine 9. Disposition: Plan will be for probable discharge home this afternoon as long as patient's pain is well controlled, tolerates therapy, and medically stable. Patient would like his prescriptions E scribed to [facility] in [facility]. He has outpatient physical therapy established. He will follow-up per postop instructions. Upon discharge patient was instructed to contact her office with any concerns or questions. Case was discussed with the nursing staff and they will replace the distal pin site dressing prior to discharge. Patient is also urinated on his own in which she does have underlying benign prostatic hyperplasia. I have reviewed the [place] Automated Rx Reporting System (OARRS) report for this patient for refill pattern and other prescriber involvement as part of the appropriate surveillance for the provision of acute and chronic controlled medications. The report was requested and reviewed on the date of this entry, and was considered in the prescribing process This dictation was created using voice recognition software. Phonetic and/or grammatical errors may exist. 3. HTN (hypertension) Digitally Signed by VANGIE MACHADO PA-C on 02/26/2022 07:05 AM [facility] 02-25-2022 Note ORIGINAL EXAMINATION: TWO XRAY VIEWS OF THE RIGHT KNEE 02/25/2022 2:08 pm COMPARISON: Prior CT of the knee dated 02/13/2022. HISTORY: ORDERING SYSTEM PROVIDED HISTORY: Reason for Exam: Status Post Arthroplasty FINDINGS: Postsurgical changes status post total right knee arthroplasty are noted. There is no acute fracture, dislocation, or hardware failure. Mild joint effusion and air is seen and expected in the postsurgical state. No unexpected radiopaque foreign body. IMPRESSION: Expected postsurgical changes status post right total knee arthroplasty. Interpreted by: Juan Briceño MD Preliminary Report By: Juan Briceño MD Electronically signed By Juan Briceño MD Dictated Date: 02/25/2022 3:01:35 PM Prelim Date: 02/25/2022 3:02:28 PM Sign Date: 02/25/2022 3:02:28 PM Ordering Provider: PRATIK JANE [facility] 02-25-2022 Note ORIGINAL EXAMINATION: TWO XRAY VIEWS OF THE RIGHT KNEE 02/25/2022 2:08 pm COMPARISON: Prior CT of the knee dated 02/13/2022. HISTORY: ORDERING SYSTEM PROVIDED HISTORY: Reason for Exam: Status Post Arthroplasty FINDINGS: Postsurgical changes status post total right knee arthroplasty are noted. There is no acute fracture, dislocation, or hardware failure. Mild joint effusion and air is seen and expected in the postsurgical state. No unexpected radiopaque foreign body. IMPRESSION: Expected postsurgical changes status post right total knee arthroplasty. Interpreted by: Juan Briceño MD Preliminary Report By: Juan Briceño MD Electronically signed By Juan Briceño MD Dictated Date: 02/25/2022 3:01:35 PM Prelim Date: 02/25/2022 3:02:28 PM Sign Date: 02/25/2022 3:02:28 PM Ordering Provider: [facility] 02-25-2022 Anesthesiology Consult note Patient: TOM LEAL Age: 66 years Sex: Male : 1955 Associated Diagnoses: None Author: COLLIN ADAN APRN-DRUM DRIER Preoperative Information Time of last food or liquid consumption: 02/25/2022 00:00:00 Anesthesia history Patient's history: negative. Family's history: negative. Review of Systems Ear/Nose/Mouth/Throat: Negative. Respiratory: Wheezing, asthma. Cardiovascular: htn. Gastrointestinal: Reflux, obese. Genitourinary: Negative, BPH. Endocrine: Negative. Musculoskeletal: arthritis. Integumentary: Negative. Neurologic: Negative. Health Status Allergies: Allergic Reactions (Selected) No Known Medication Allergies, Allergies (1) ActiveReaction No Known Medication AllergiesNone Documented Current medications: (Selected) Inpatient Medications Ordered Dilaudid ( PACU ): 0.2 mg, IV Push, q5min, PRN: Pain, scale 4-6 LR 1,000 mL: 20 mL/hr, Intravenous, Stop: 02/25/22 23:59:00 EST LR 1000 mL: 20 mL/hr, Intravenous Zofran ( PACU ): 4 mg, 2 mL, IV Push, AsDirected, PRN: Nausea/Vomiting Documented Medications Documented Vitamin D3: 25 mcg, 1 tab(s), Oral, Daily, 0 Refill(s) albuterol MDI (90 mcg/inh) CFC free inhalation aerosol: 2 puff(s), Inhalation, QID, PRN: as needed for wheezing, 6.7 gram(s), 0 Refill(s) chlorthalidone 25 mg oral tablet: take 1 tablet by mouth once daily losartan 100 mg oral tablet: take 1 tablet by mouth once daily omeprazole 20 mg oral delayed release capsule: 20 mg, 1 cap(s), Oral, qDay, 30 cap(s), 0 Refill(s) tamsulosin 0.4 mg oral capsule: take 1 capsule by mouth twice a day, Medications (4) Active Scheduled: (0) Continuous: (2) Lactated Ringers 1,000 mL 1,000 mL, Intravenous, 20 mL/hr Lactated Ringers Infusion 1000 mL 1,000 mL, Intravenous, 20 mL/hr PRN: (2) HYDROmorphone 0.2 mg, IV Push, q5min ondansetron 2 mg/ 1 mL 2 mL INJ 4 mg 2 mL, IV Push, AsDirected Problem list: Active Problems (6) Arthritis Asthma Bronchitis GERD (gastroesophageal reflux disease) HTN (hypertension) Wheeze Histories Past Medical History: No active or resolved past medical history items have been selected or recorded. Family History: Entire family history is negative. Procedure history: Colonoscopy ([id number]). Arthroscope ([id number]). Comments: 02/13/2022 13:38 TYLOR - Sada Jennings RN right knee Social History Social & Psychosocial Habits Alcohol 02/13/2022 Use: Current Type: Beer Frequency: 3-5 times per week Substance Abuse 02/13/2022 Use: Never Tobacco 02/13/2022 Tobacco Use: Never (less than 100 in l Home/Environment 02/13/2022 Domestic Concerns None Living situation: Home/Independent . Physical Examination Vital Signs 02/25/2022 13:00 EST Heart Rate Monitored 62 bpm bpm Respiratory Rate - Anes 9 br/min br/min Systolic Blood Pressure Non-Invasive 94 mmHg mmHg Diastolic Blood Pressure Non-Invasive 44 mmHg mmHg 02/25/2022 12:55 EST Heart Rate Monitored 69 bpm bpm Respiratory Rate - Anes 12 br/min br/min Systolic Blood Pressure Non-Invasive 101 mmHg mmHg Diastolic Blood Pressure Non-Invasive 55 mmHg mmHg 02/25/2022 12:50 EST Heart Rate Monitored 64 bpm bpm Respiratory Rate - Anes 12 br/min br/min Systolic Blood Pressure Non-Invasive 78 mmHg mmHg Diastolic Blood Pressure Non-Invasive 38 mmHg mmHg 02/25/2022 12:48 EST Systolic Blood Pressure Non-Invasive 86 mmHg mmHg Diastolic Blood Pressure Non-Invasive 45 mmHg mmHg 02/25/2022 12:45 EST Heart Rate Monitored 60 bpm bpm Respiratory Rate - Anes 12 br/min br/min Systolic Blood Pressure Non-Invasive 68 mmHg mmHg Diastolic Blood Pressure Non-Invasive 51 mmHg mmHg 02/25/2022 12:42 EST Systolic Blood Pressure Non-Invasive 67 mmHg mmHg Diastolic Blood Pressure Non-Invasive 35 mmHg mmHg 02/25/2022 12:40 EST Heart Rate Monitored 55 bpm bpm Respiratory Rate - Anes 12 br/min br/min Systolic Blood Pressure Non-Invasive 65 mmHg mmHg Diastolic Blood Pressure Non-Invasive 32 mmHg mmHg 02/25/2022 12:35 EST Heart Rate Monitored 75 bpm bpm Respiratory Rate - Anes 8 br/min br/min Systolic Blood Pressure Non-Invasive 118 mmHg mmHg Diastolic Blood Pressure Non-Invasive 72 mmHg mmHg 02/25/2022 12:30 EST Heart Rate Monitored 72 bpm bpm Respiratory Rate - Anes 12 br/min br/min Systolic Blood Pressure Non-Invasive 91 mmHg mmHg Diastolic Blood Pressure Non-Invasive 60 mmHg mmHg 02/25/2022 12:25 EST Heart Rate Monitored 72 bpm bpm Respiratory Rate - Anes 12 br/min br/min Systolic Blood Pressure Non-Invasive 88 mmHg mmHg Diastolic Blood Pressure Non-Invasive 52 mmHg mmHg 02/25/2022 12:20 EST Heart Rate Monitored 76 bpm bpm Respiratory Rate - Anes 12 br/min br/min Systolic Blood Pressure Non-Invasive 100 mmHg mmHg Diastolic Blood Pressure Non-Invasive 62 mmHg mmHg 02/25/2022 12:15 EST Heart Rate Monitored 77 bpm bpm Respiratory Rate - Anes 12 br/min br/min Systolic Blood Pressure Non-Invasive 96 mmHg mmHg Diastolic Blood Pressure Non-Invasive 56 mmHg mmHg 02/25/2022 12:10 EST Heart Rate Monitored 76 bpm bpm Respiratory Rate - Anes 12 br/min br/min Systolic Blood Pressure Non-Invasive 86 mmHg mmHg Diastolic Blood Pressure Non-Invasive 56 mmHg mmHg 02/25/2022 12:05 EST Heart Rate Monitored 61 bpm bpm Respiratory Rate - Anes 12 br/min br/min Systolic Blood Pressure Non-Invasive 90 mmHg mmHg Diastolic Blood Pressure Non-Invasive 52 mmHg mmHg 02/25/2022 12:01 EST Systolic Blood Pressure Non-Invasive 144 mmHg mmHg Diastolic Blood Pressure Non-Invasive 117 mmHg mmHg 02/25/2022 11:30 EST Systolic Blood Pressure Non-Invasive 111 mmHg mmHg Diastolic Blood Pressure Non-Invasive 65 mmHg mmHg 02/25/2022 10:10 EST Temperature Temporal Artery 35.9 DegC Apical Heart Rate 76 bpm Respiratory Rate 18 br/min Systolic Blood Pressure Non-Invasive 118 mmHg Diastolic Blood Pressure Non-Invasive 82 mmHg Blood Pressure Method Manual Blood Pressure Location Left arm Vital Signs(last 24 hrs) Last Charted Heart Rate [id number] bpm (FEB 25 13:00) Resp Rate 18 br/min (FEB 25 10:10) SBP94 mmHg (FEB 25 13:00) DBP44 mmHg (FEB 25 13:) Measurements from flowsheet : Measurements 02/25/2022 10:10 EST Height 190.5 cm Admission Weight 113.6 kg [place] Body Weight 84.50 kg Admission Body Mass Index 31.3 m2 Pain assessment: Pain Assessment 02/25/2022 12:11 EST Primary Pain Intensity Not Done: See OR Record (Not Done) 02/25/2022 12:10 EST Primary Pain Intensity Not Done: See OR Record (Not Done) 02/25/2022 10:33 EST Primary Pain Intensity 0 02/25/2022 10:10 EST Primary Pain Intensity 0 Pain Scale Type 0-10 Pain scale . General: Alert and oriented. Airway: Normal temporomandibular joint mobility. Mallampati classification: II (soft palate, fauces, uvula visible). Head: Normocephalic. Dentition Evaluation: Own teeth. Neck: Supple. Respiratory: Lungs are clear to auscultation. Cardiovascular: Normal rate. Heart Sounds: Normal. Gastrointestinal: Soft. Musculoskeletal Normal range of motion. Integumentary: Intact. Neurologic: Alert, Oriented. Review / Management Results review: No qualifying data available , Lab results 02/25/2022 13:06 EST Yue Operative Report Operative Report Note 02/25/2022 13:00 EST Heart Rate Monitored 62 bpm bpm Respiratory Rate - Anes 9 br/min br/min Systolic Blood Pressure Non-Invasive 94 mmHg mmHg Diastolic Blood Pressure Non-Invasive 44 mmHg mmHg Oxygen Saturation 96.9 % % 02/25/2022 12:57 EST SN - Proc - EBL 75 mL 02/25/2022 12:57 EST Intra-Op EBL 75 mL 02/25/2022 12:56 EST SN - PA - Medication BETADINE (POVIDONE IODINE) SOLUT SN - PA - By (Single) SN - PA - By (Single) SN - PA - Time Administered 02/25/2022 12:56 02/25/2022 12:56 EST SN - Implant - Implant/Explant Implant SN - Implant - Implant/Explant Implant SN - Implant - Implant/Explant Implant SN - Implant - Implant/Explant Implant 02/25/2022 12:55 EST Heart Rate Monitored 69 bpm bpm Respiratory Rate - Anes 12 br/min br/min Systolic Blood Pressure Non-Invasive 101 mmHg mmHg Diastolic Blood Pressure Non-Invasive 55 mmHg mmHg Oxygen Saturation 97.1 % % 02/25/2022 12:50 EST Heart Rate Monitored 64 bpm bpm Respiratory Rate - Anes 12 br/min br/min Systolic Blood Pressure Non-Invasive 78 mmHg mmHg Diastolic Blood Pressure Non-Invasive 38 mmHg mmHg Oxygen Saturation 95.5 % % 02/25/2022 12:48 EST Systolic Blood Pressure Non-Invasive 86 mmHg mmHg Diastolic Blood Pressure Non-Invasive 45 mmHg mmHg tranexamic acid 1 gram(s) gram(s) 02/25/2022 12:47 EST SN - PA - Route of Administration Local SN - PA - By (Single) SN - PA - By (Single) SN - PA - Time Administered 02/25/2022 12:46 02/25/2022 12:46 EST SN - CAt - Case Attendee SN - CAt - Case Attendee SN - CAt - Role Performed Blast Furnace Keeper 1 02/25/2022 12:45 EST Heart Rate Monitored 60 bpm bpm Respiratory Rate - Anes 12 br/min br/min Systolic Blood Pressure Non-Invasive 68 mmHg mmHg Diastolic Blood Pressure Non-Invasive 51 mmHg mmHg Oxygen Saturation 97.8 % % 02/25/2022 12:44 EST ePHEDrine 10 mg mg 02/25/2022 12:42 EST Systolic Blood Pressure Non-Invasive 67 mmHg mmHg Diastolic Blood Pressure Non-Invasive 35 mmHg mmHg Lactated Ringers Injection 1,000 mL mL 02/25/2022 12:40 EST Heart Rate Monitored 55 bpm bpm Respiratory Rate - Anes 12 br/min br/min Systolic Blood Pressure Non-Invasive 65 mmHg mmHg Diastolic Blood Pressure Non-Invasive 32 mmHg mmHg Oxygen Saturation 97.2 % % 02/25/2022 12:35 EST Heart Rate Monitored 75 bpm bpm Respiratory Rate - Anes 8 br/min br/min Systolic Blood Pressure Non-Invasive 118 mmHg mmHg Diastolic Blood Pressure Non-Invasive 72 mmHg mmHg Oxygen Saturation 82.1 % % fentaNYL 50 mcg mcg 02/25/2022 12:30 EST Heart Rate Monitored 72 bpm bpm Respiratory Rate - Anes 12 br/min br/min Systolic Blood Pressure Non-Invasive 91 mmHg mmHg Diastolic Blood Pressure Non-Invasive 60 mmHg mmHg Oxygen Saturation 97.5 % % acetaminophen 1,000 mg mg 02/25/2022 12:29 EST SN - CAt - Case Attendee SN - CAt - Case Attendee SN - CAt - Role Performed Property Condition Assessor 1 02/25/2022 12:26 EST SN - PA - Route of Administration Irrigation 02/25/2022 12:25 EST Heart Rate Monitored 72 bpm bpm Respiratory Rate - Anes 12 br/min br/min Systolic Blood Pressure Non-Invasive 88 mmHg mmHg Diastolic Blood Pressure Non-Invasive 52 mmHg mmHg Oxygen Saturation 97.1 % % 02/25/2022 12:21 EST SN - GCD - ASA Class 3 02/25/2022 12:20 EST SN - CAt - Case Attendee SN - CAt - Case Attendee SN - CAt - Role Performed Scrub Relief 02/25/2022 12:20 EST Heart Rate Monitored 76 bpm bpm Respiratory Rate - Anes 12 br/min br/min Systolic Blood Pressure Non-Invasive 100 mmHg mmHg Diastolic Blood Pressure Non-Invasive 62 mmHg mmHg Oxygen Saturation 97 % % 02/25/2022 12:19 EST dexamethasone 10 mg mg ondansetron 4 mg mg 02/25/2022 12:18 EST SN - CAt - Case Attendee SN - CAt - Case Attendee SN - CAt - Role Performed Physician Adolescent Counselor 02/25/2022 12:15 EST Heart Rate Monitored 77 bpm bpm Respiratory Rate - Anes 12 br/min br/min Systolic Blood Pressure Non-Invasive 96 mmHg mmHg Diastolic Blood Pressure Non-Invasive 56 mmHg mmHg Oxygen Saturation 97.8 % % acetaminophen Begin Bag 100 mL mg citric acid-sodium citrate Not Given: Other (Not Done) 02/25/2022 12:11 EST Primary Pain Intensity Not Done: See OR Record (Not Done) epinephrine Not Done: See OR Record (Not Done) ketorolac Not Done: See OR Record (Not Done) morphine Not Done: See OR Record (Not Done) povidone iodine topical Not Done: See OR Record (Not Done) ropivacaine Not Done: See OR Record (Not Done) 02/25/2022 12:10 EST SN - Proc - Anesthesia Type General, Local, Regional 02/25/2022 12:10 EST SN - Proc - Actual Procedure ROBOTIC ASSISTED RIGHT TOTAL KNEE ARTHROPLASTY 02/25/2022 12:10 EST Heart Rate Monitored 76 bpm bpm Respiratory Rate - Anes 12 br/min br/min Systolic Blood Pressure Non-Invasive 86 mmHg mmHg Diastolic Blood Pressure Non-Invasive 56 mmHg mmHg Primary Pain Intensity Not Done: See OR Record (Not Done) Oxygen Saturation 99.6 % % epinephrine Not Done: See OR Record (Not Done) ketorolac Not Done: See OR Record (Not Done) morphine Not Done: See OR Record (Not Done) ropivacaine Not Done: See OR Record (Not Done) 02/25/2022 12:09 EST SN - CTm - Surgery Start 02/25/2022 12:09 02/25/2022 12:09 EST SN - CTm - Surgery Start Surgery Start 02/25/2022 12:05 EST Heart Rate Monitored 61 bpm bpm Respiratory Rate - Anes 12 br/min br/min Systolic Blood Pressure Non-Invasive 90 mmHg mmHg Diastolic Blood Pressure Non-Invasive 52 mmHg mmHg Oxygen Saturation 100 % % 02/25/2022 12:01 EST Systolic Blood Pressure Non-Invasive 144 mmHg mmHg Diastolic Blood Pressure Non-Invasive 117 mmHg mmHg 02/25/2022 12:00 EST tranexamic acid 1 gram(s) gram(s) 02/25/2022 11:49 EST SN - CAt - Case Attendee SN - CAt - Case Attendee SN - CAt - Role Performed Property Condition Assessor Relief 02/25/2022 11:39 EST SN - SP - Prep Agents Chloraprep SN - SP - HR - Method Clipped 02/25/2022 11:39 EST SN - PP - Body Position Supine Standard Intra-op 02/25/2022 11:38 EST SN - Irl - Irrigant Normal Saline SN - Irl - Irrigant Sterile Water SN - IrI - Volume In 3,000 mL SN - IrI - Volume In 500 mL SN - Irl - Additive CHG SN - IrI - Volume Out 3,000 mL SN - IrI - Volume Out 500 mL 02/25/2022 11:33 EST SN - PTCare - Thermals Forced Air Warming Device Upper Body SN - PTCare - Anti-thromboembolism Pat Sequential Compression Device (SCD) 02/25/2022 11:33 EST SN - Assess - LOC Alert, Awake SN - Assess - Orientation Oriented X 3 SN - Assess - Post-op Skin Integrity Intact/Dry 02/25/2022 11:32 EST SN - GCD - Post-operative Diagnosis UNILATERAL PRIMARY OSTEOARTHRITIS RIGHT KNEE SN - GCD - Case Level Level 5 02/25/2022 11:30 EST Systolic Blood Pressure Non-Invasive 111 mmHg mmHg Diastolic Blood Pressure Non-Invasive 65 mmHg mmHg 02/25/2022 11:29 EST SN - CTm - Anesthesia Start Time Anesthesia Start cefazolin 2 gram(s) gram(s) fentaNYL 50 mcg mcg Lactated Ringers Injection Begin Bag 1,000 mL mL Sodium Chloride 0.9% 100 mL mL 02/25/2022 11:23 EST SN - CAt - Case Attendee SN - CAt - Case Attendee SN - CAt - Role Performed Scrub 1 02/25/2022 11:22 EST SN - Cul - Culture Type No Specimen per Surgeon 02/25/2022 11:20 EST SN - CAt - Case Attendee SN - CAt - Case Attendee SN - CAt - Case Attendee SN - CAt - Case Attendee SN - CAt - Case Attendee SN - CAt - Case Attendee SN - CAt - Case Attendee SN - CAt - Case Attendee SN - CAt - Case Attendee SN - CAt - Case Attendee SN - CAt - Role Performed Primary Surgeon SN - CAt - Role Performed Property Condition Assessor 1 SN - CAt - Role Performed DRUM DRIER SN - CAt - Role Performed Blast Furnace Keeper 1 SN - CAt - Role Performed Wafer Line Worker 02/25/2022 11:20 EST dexamethasone 4 mg mg ropivacaine 100 mg mg 02/25/2022 11:18 EST epinephrine-lidocaine 1 mL mL fentaNYL 50 mcg mcg midazolam 2 mg mg 02/25/2022 11:09 EST Time Out Procedure Verified Time Out Procedure Site Verified Yes Time Out Procedure Site Marked Yes Time Out Correct Patient Position Yes Consent Form Signed Yes Bedside Procedure Nerve Block Provider #1 Bedside Time Out Bonny Rubi RN Provider #2 Bedside Time Out COLLIN ADAN APRN-DRUM DRIER NPO Status Maintained Allergy Band on and Verified No Patient ID Band on and Verified Yes Anesthesia Consent Signed Yes Blood Consent Signed Yes 02/25/2022 11:01 EST SN - Preop - CTm Pt in SDS Room 02/25/2022 10:09 SN - Preop - CTm Pt Ready for OR/Proced 02/25/2022 11:01 02/25/2022 10:41 EST Infectious Disease Symptoms Patient states no symptoms Safety Brochure Information Reviewed Unable to complete Ethel Diaz Video Viewed No Teaching Evaluation Needs further teaching Admission Note-Nursing Same Day Patient History (Modified) 02/25/2022 10:33 EST Primary Pain Intensity 0 celecoxib 400 mg mg famotidine 20 mg mg oxyCODONE 10 mg mg Lactated Ringers Injection 1,000 mL mL 02/25/2022 10:30 EST ABO/Rh Interp A POS Antibody Screen Gel Negative ABSC 02/25/2022 10:10 EST Height 190.5 cm Admission Weight 113.6 kg [place] Body Weight 84.50 kg Admission Body Mass Index 31.3 m2 Temperature Temporal Artery 35.9 DegC Apical Heart Rate 76 bpm Respiratory Rate 18 br/min Systolic Blood Pressure Non-Invasive 118 mmHg Diastolic Blood Pressure Non-Invasive 82 mmHg Blood Pressure Method Manual Blood Pressure Location Left arm Primary Pain Intensity 0 Pain Scale Type 0-10 Pain scale Heart Sounds ICU [id number] Heart Rhythm Regular Respirations Unlabored All Lobes Breath Sounds Clear, Diminished Oxygen Therapy Room air Oxygen Saturation 95 % Abdomen Description Non-distended Bowel Sounds All Quadrants Present Urinary Elimination Voiding with difficulties Skin Temperature Warm Skin Description [place], Dry Skin Integrity Intact Mucous Membrane Color [place] IV Present Present Continuous IV Infusions LR Wrist Left 02/25/2022 20 gauge Peripheral IV Activity: Insert new site Peripheral IV Dressing Condition: Clean, Dry, Intact Peripheral IV Dressing Activity: Applied, Changed Peripheral IV Line Status/Patency: Continuous infusion Peripheral IV Line Care: Secured with tape Peripheral IV Site Condition: No complications Peripheral IV Equipment: Extension set, PRN Adaptor Peripheral IV Number of Attempts: 1 Extremity Movement Equal Characteristics of Speech Clear Level of Consciousness Alert Strength All Extremities Strong Tone All Extremities Normal Affect/Behavior Appropriate, Calm, Cooperative Orientation Oriented x 4 Allergies No Automotive Glass Installer On Yes Consent Form Signed Yes Patient Dressed In Hospital gown Pre-op Preparation Undergarments removed CHG Preoperative Wash/Wipe Night before procedure, Day of procedure History & Physical Update On Chart Yes History & Physical On Chart Yes Obstructive Sleep Apnea Assess Completed Yes Belongings At Bedside Coat, Glasses, Pants, Shirt, Shoes, Socks Personal Home Medications Received No home medications were brought in Belongings Sent To Security None Activity Status ADL Ambulating in room, Awake SCD On/Re-applied left knee high Antiembolism Stocking On/Re-applied left thigh high NPO Status Maintained Standard Safety ID band on, Call device within reach, Bed in low position, Wheels locked, personal items within reach, Non-Slip footwear Allergy Band on and Verified No Blood Band on and Verified No Patient ID Band on and Verified Yes Implants Verified Yes Pacemaker/AICD Verified Yes Anesthesia Consent Signed Yes Blood Consent Signed Yes Last Fluid Intake 02/24/2022 22:30 Last Food Intake 02/24/2022 22:30 Last Void 02/25/2022 9:00 . Assessment and Plan [place] [employer] (ASA) physical status classification: Class III. Anesthetic Preoperative Plan Premedication: intravenous. Anesthetic technique: General. Induction: intravenously. Maintenance airway: Oral endotracheal tube. Postoperative pain management: Per surgeon. Risks discussed: nausea, vomiting, sore throat. Informed consent: signed by patient. Digitally Signed by COLLIN ADAN on 02/25/2022 01:12 PM [facility] 02-13-2022 Note ORIGINAL EXAMINATION: CT OF THE RIGHT KNEE WITHOUT CONTRAST 02/13/2022 2:44 pm TECHNIQUE: CT of the right knee was performed without the administration of intravenous contrast. Multiplanar reformatted images are provided for review. Automated exposure control, iterative reconstruction, and/or weight based adjustment of the mA/kV was utilized to reduce the radiation dose to as low as reasonably achievable. COMPARISON: None. HISTORY ORDERING SYSTEM PROVIDED HISTORY: Reason for Exam: M21.061. Chronic knee pain. Valgus deformity, not elsewhere classified. FINDINGS: No acute fracture or dislocation is evident. Normal osseous mineralization. No visible aggressive osseous lesion. There is a bone island posterior aspect of the lateral tibial plateau. [id number] tricompartmental joint space narrowing is noted with marginal osteophyte formation, most pronounced of the lateral femorotibial compartment where there is mild subchondral sclerosis. Small volume effusion no significant volume of fluid is evident of a popliteal cyst. Visible tendons appear grossly intact. Ligaments are poorly evaluated on this examination. No muscle atrophy. Provided images of the right hip and right hemipelvis demonstrate no acute osseous abnormalities or aggressive osseous lesions. There is a posterolateral right bladder diverticulum measuring approximately 2.8 cm AP dimension. There are sc dystrophic lerotic calcifications present of the prostate gland. No acute intrapelvic process noted. Provided images of the ankle exhibit no acute osseous abnormalities or aggressive osseous lesions. Mild atherosclerosis noted diffusely. Nonspecific prepatellar subcutaneous edema. IMPRESSION: 1. No acute osseous abnormalities or aggressive osseous lesions. 2. [id number] tricompartmental osteoarthrosis, most pronounced of the lateral femorotibial compartment. Small volume effusion. Interpreted by: Dennis Wilks DO Preliminary Report By: Dennis Wilks DO Electronically signed By Dennis Wilks DO Dictated Date: 02/13/2022 2:46:25 PM Prelim Date: 02/13/2022 2:52:07 PM Sign Date: 02/13/2022 2:52:07 PM Ordering Provider: PRATIK [facility] 02-13-2022 Note ORIGINAL EXAMINATION: CT OF THE RIGHT KNEE WITHOUT CONTRAST 02/13/2022 2:44 pm TECHNIQUE: CT of the right knee was performed without the administration of intravenous contrast. Multiplanar reformatted images are provided for review. Automated exposure control, iterative reconstruction, and/or weight based adjustment of the mA/kV was utilized to reduce the radiation dose to as low as reasonably achievable. COMPARISON: None. HISTORY ORDERING SYSTEM PROVIDED HISTORY: Reason for Exam: M21.061. Chronic knee pain. Valgus deformity, not elsewhere classified. FINDINGS: No acute fracture or dislocation is evident. Normal osseous mineralization. No visible aggressive osseous lesion. There is a bone island posterior aspect of the lateral tibial plateau. Ssjw-nj-[id number] tricompartmental joint space narrowing is noted with marginal osteophyte formation, most pronounced of the lateral femorotibial compartment where there is mild subchondral sclerosis. Small volume effusion no significant volume of fluid is evident of a popliteal cyst. Visible tendons appear grossly intact. Ligaments are poorly evaluated on this examination. No muscle atrophy. Provided images of the right hip and right hemipelvis demonstrate no acute osseous abnormalities or aggressive osseous lesions. There is a posterolateral right bladder diverticulum measuring approximately 2.8 cm AP dimension. There are sc dystrophic lerotic calcifications present of the prostate gland. No acute intrapelvic process noted. Provided images of the ankle exhibit no acute osseous abnormalities or aggressive osseous lesions. Mild atherosclerosis noted diffusely. Nonspecific prepatellar subcutaneous edema. IMPRESSION: 1. No acute osseous abnormalities or aggressive osseous lesions. 2. Hxuc-rt-rkceezdx tricompartmental osteoarthrosis, most pronounced of the lateral femorotibial compartment. Small volume effusion. Interpreted by: Dennis Wilks DO Preliminary Report By: Dennis Wilks DO Electronically signed By Dennis Wilks DO Dictated Date: 02/13/2022 2:46:25 PM Prelim Date: 02/13/2022 2:52:07 PM Sign Date: 02/13/2022 2:52:07 PM Ordering Provider: PRATIK LUCINDA [facility] 09-18-2021 Miscellaneous Notes Patient needs to come back in for another test, lab cancelled test due to duplicate testing. notified pt. Ignacia Hoffman Patient calling he was in [facility] and was swabbed for COVID test. Computer does not show test or results. Patient asking for test results. Please advise documented in this encounter [facility] 09-16-2021 History of Presen t illness Narrative Patient presents with: Cough: sore throat, fever and headache x 2 days HPI: Feeling sick for 3 days. Was at a in [place]. Home COVID test negative last night. Positive symptoms: Sore throat, tender left lymph node, Fever, Headache, some Cough, slight Chest tightness, mild Nasal Congestion/Rhinorrhea, Body Aches, Malaise, Negative symptoms: Nausea, Vomiting, Diarrhea, OTC: Ibuprofen. Has not needed inhaler. Remote history of smoking. PHx of asthma or COPD. Multiple past episodes of improvement after treatment with antibiotic for bronchitis. Had COVID illness in February. Has had COVID vaccination and booster. PAST MEDICAL HISTORY Diagnosis Date Acute gastritis without mention of hemorrhage Acute gastritis without mention of hemorrhage Allergic rhinitis, cause unspecified Allergic rhinitis Benign neoplasm of colon Diaphragmatic hernia without mention of obstruction or gangrene Diaphragmatic hernia without mention of obstruction or gangrene Esophageal reflux Family history of malignant neoplasm of gastrointestinal tract family history of colon cancer (father) Internal hemorrhoids without mention of complication Other and unspecified hyperlipidemia Hyperlipidemia Personal history of colonic polyps MEDICATIONS: Current Outpatient Medications Medication Sig tamsulosin (FLOMAX) 0.4 mg Take 1 capsule by mouth twice daily. omeprazole (PRILOSEC) 20 mg capsule Take 20 mg by mouth. Fish Oil-Concord-3 Fatty Acids 300-500 mg cap Take by mouth. etodolac 400 mg ORAL tablet Take 1 tablet by mouth twice daily. As needed for pain Tadalafil (CIALIS) 20 mg ORAL tablet Take 1 tablet by mouth as needed. 1-2 hours before sexual intercourse. albuterol 90 mcg/Actuation INHALATION Aero Inhale 2 Puffs as instructed four times daily as needed. FOR WHEEZING AND SHORTNESS OF BREATH. Omeprazole Magnesium (PRILOSEC OTC) 20 mg ORAL tablet Take 1 tablet by mouth once daily. albuterol 90 mcg/Actuation INHALATION Aero Inhale one(1) - two(2) puffs four(4) times a day as needed for wheezing and shortness of breath. ASPIRIN 81 MG TAB Take one(1) tablet daily. omega-3 fatty acids(FISH OIL 500 MG CAP) Take four (4) capsules daily. losartan (COZAAR) 100 mg tablet chlorthalidone (HYGROTON) 25 mg tablet Take 25 mg by mouth once daily. No current facility-administered medications for this visit. ALLERGIES: ALLERGIES No Known Allergies VITALS: BP 124/68 Pulse 100 Temp 37 C (98.6 F) Resp 18 Wt 117 kg (258 lb) SpO2 96% PHYSICAL EXAM: GEN: mildly ill appearing HEENT: PERRL, EOMI, conjunctiva clear Ears: cerumen distal left canal. TMs without erythema, bulge, or effusion Sinuses: non-tender frontal sinus, non-tender maxillary sinuses Throat: moist mucous membranes, pharyngeal erythema, no exudate Neck: supple, no thyromegaly, small left submandibular lymphadenopathy HEART: regular rate and rhythm, no murmurs LUNGS: clear to auscultation, no wheezes or crackles, no increased WOB ASSESSMENT/PLAN: 1. URI, acute - ICD9: 465.9, ICD10: J06.9 (primary diagnosis) 2. Mild intermittent asthma without complication - ICD9: 493.90, ICD10: J45.20 - suspect viral URI, differential includes COVID-19. - Discussed supportive care treatment with home isolation, rest, cold medicine, inhaler and analgesia. - Red flags to seek further treatment include chest pain, shortness of breath, and lethargy; in the ER if severe. - 2019 CORONAVIRUS - contact PCP to discuss antiviral treatment if positive. Zhen Calzada MD documented in this encounter [facility] 07-02-2006 History of Past i llness Narrative Problem Noted Date Resolved Date Type II or unspecified type diabetes mellitus without mention of complication, not stated as uncontrolled 07/02/2006 Overview: He is pre diabetic at this point. Not proper to assign Dx of diabetes. Acute gastritis without mention of hemorrhage 08/24/2009 documented as of this encounter (statuses as of 09/16/2021) [facility] History of Past illness Narrative* Problem Noted Date Resolved Date Type II or unspecified type diabetes mellitus without mention of complication, not stated as uncontrolled 07/02/2006 Overview: He is pre diabetic at this point. Not proper to assign Dx of diabetes. Acute gastritis without mention of hemorrhage 08/24/2009 documented as of this encounter (statuses as of 09/18/2021) [facility] Evaluation note* Diagnosis URI, acute- Primary Acute upper respiratory infections of unspecified site Mild intermittent asthma without complication Unspecified asthma [facility] noteNo assessment information availableWWilson [facility] Work Phone: Evaluation note* Diagnosis Contusion of left lower extremity, initial encounter- Primary Cellulitis of left lower extremity Cellulitis and abscess of leg, except foot [facility] No data available for this section [facility] Hospital Discharge instructions No data available for this section [facility] Progress note No data available for this section [facility] Health Concerns Infection Onset Date Last Indicated Resolved Time COVID-19 Rule-Out 09/16/2021 09/16/2021 Chief Complaint and Reason for Visit Chief Complaint 2 DRS/ 2 ORDERS WOUND DRAINAGE Chief Complaint RUQ ABD PAIN, POSS G [place]ONES Chief Complaint RUQ ABD PAIN, POSS G [place]ONES CARDIAC ARRHYTHMIA Advance Directives No Advanced Directives Records Found Advance Directive Response Recorded Date/ Time Advance Directives No October 4:28pm Living Will No February 28 9:12pm Power of Acute Coordinator No February 28, 2022 9:12pm Advance Directive Response Recorded Date/ Time Advance Directives No October 5:28pm Living Will No February 28 10:12pm Power of Acute Coordinator No February 28, 2022 10:12pm Summary Purpose Family History No Family History Records Found Additional Source Comments Source Comments (unrecognize d section and content) In the event this informatio n is protected by the Federal Confidentiality of Alcohol and Drug Abuse Patient Records regulations: The Federal rules restrict any use of the information to criminally investigate or prosecute any alcohol or drug abuse patient.[facility] the event this information is protected by the Federal Confidentiality of Alcohol and Drug Abuse Patient Records regulations: The Federal rules restrict any use of the information to criminally investigate or prosecute any alcohol or drug abuse patient.[facility] the event this information is protected by the Federal Confidentiality of Alcohol and Drug Abuse Patient Records regulations: The Federal rules restrict any use of the information to criminally investigate or prosecute any alcohol or drug abuse patient.[facility] Reason for Visit (unrecogniz ed section and content) Reason Comments Cough sore throat, fever a nd headache x 2 days Reason Comments COVID test results Reason Comments LESION, SKIN on left lower leg x several days, fell and caught leg on metal lip of step Care Teams (unrecognized sec tion and content) Clinical Psychiatrist Relationship Specialty Start Date End Date Akira Green MD [address] [place] [address] PCP - General Family Practice 09/16/21 Clinical Psychiatrist Relationship Specialty Start Date End Date Akira Green MD [address] [place] [address] PCP - General Family Practice 09/16/21 Team Status: Active Member Role Status Dates Dr. Akira Green MD Family Provider Active Dr. Keith Love , Primary Care Provider Active Team Status: Inactive Member Role Status Dates Dr. Keith Love DO Primary Care Provider Active Dr. Domingo Farris MD Attending Provider Active Team Status: Inactive Member Role Status Dates Dr. Keith Love DO Primary Care Prov ider, Attending Provider, Referring Provider Active Team Status: Inactive Member Role Status Dates Dr. Keith Love DO Primary Care Provider, Jayme quintanilla Provider Active Clinical Psychiatrist Relationship Specialty Start Date End Date Keith Love DO [facility] [id number] PCP - General Family Medicine 09/14/24 Care Team (unrecognized sect ion and content) Care Team Personnel Name: AKIRA GREEN MD Member Role: Primary Care Physician Address: Address: [address] [place], [place] [address]Tha GRIFFIN [address] Care Team Related Persons Name: JAVIER LEAL Address: Home [address] [place] [address] Care Team Personnel Name: AKIRA GREEN MD Member Role: Primary Care Physician Address: Address: [address] [place], [place] [address]Tha MATUTEKi GRIFFIN [address] Care Team Related Persons Name: JAVIER LEAL Address: Home [address] [place] [address] Care Team Personnel Name: AKIRA GREEN MD Member Role: Primary Care Physician Address: Address: [address] [place] [address] Care Team Related Persons Name: JAVIER LEAL Address: [place] [address] Goals (unrecognized section and content) Goals may be documented in a n alternate section (unrecognized sect ion and content) No Status Records FoundNo Status Records FoundNo Status Records Found INFORMATION SOURCE (unrecogn ized section and content) DATE CREATED AUTHOR 03/03/2022 [facility] ([place]) DATE CREATED AUTHOR AUTHOR'S ORGANIZ ATION 09/16/2024 [facility] DATE CREATED AUTHOR AUTHOR'S ORGANIZ ATION 12/13/2024 [facility] FOR RECORDS PERTAINING TO PATIENTS WHO ARE OR HAVE BEEN ENROLLED IN A CHEMICAL DEPENDENCY/SUBSTANCEABUSE PROGRAM, SOME INFORMATION MAY BE OMITTED. This clinical summary was aggregated from multiple sources. Caution should be exercised in using it in the provision of clinical care. This summary normalizes information from multiple sources, and as a consequence, information in this document may materially change the coding, format and clinical context of patient data. In addition, data may be omitted in some cases. CLINICAL DECISIONS SHOULD BE BASED ON THE PRIMARY CLINICAL RECORDS. [facility] [employer] [facility] provides no warranty or guarantee of the accuracy or completeness of information in this document.
== END | disposition home or self-care (01) ==
LOC: US 12:48
PROVIDERS: PCP Family Medicine; Visit Provider Family Medicine
DX: E04.1 Nontoxic single thyroid nodule (principal)
CPT/HCPCS: 76536